=== PATIENT | male | born 1960 | race Hispanic/Latino ===

== ENCOUNTER 2024-11-19 07:43 | Inpatient (IN) | payer OTHER ==
[~2024-11-19] VITALS: Ht 162.6 cm; Wt 74.8 kg
[2024-11-19] VITALS (30 sets, daily range): BP systolic 95–139; BP diastolic 51–85; PULSE 79–96; RESP 15–22; TEMP 97.9–99.6; O2SAT 94–95
--- NOTE | 2024-11-19 07:52 | NUR ---
PT JUST NOW PLACED IN MY ED BED 11
[2024-11-19 08:18] LABS: BASOPHILS # (AUTO) 0.06 K/uL (0.00-0.20); BASOPHILS % (AUTO) 0.5 % (0.0-5.0); EOSINOPHILS % (AUTO) 2.3 % (0.0-8.0); HEMATOCRIT 45.7 % (42-54); IMMATURE GRANULOCYTE ABSOLUTE 0.04 K/uL (0-1); LYMPHOCYTES # (AUTO) 1.7 K/uL (1.0-4.8); LYMPHOCYTES % (AUTO) 13.4 % (21.0-51.0); MEAN CORPUSCULAR HEMOGLOBIN 28.7 pg (27.0-33.0); MEAN CORPUSCULAR HGB CONC 32.8 g/dL (32.0-36.0); MEAN CORPUSCULAR VOLUME 87.5 fL (79-99); MONOCYTES # (AUTO) 1.2 K/uL (0.1-1.0); NEUTROPHILS # (AUTO) 9.7 K/uL (1.8-7.7); NEUTROPHILS % (AUTO) 74.5 % (40.0-77.0); PLATELET COUNT (AUTO) 300 K/uL (130-400); RED BLOOD CELL COUNT(AUTO) 5.22 MIL/uL (4.50-6.20); RED CELL DISTRIBUTION WIDTH 12.8 % (11.0-15.5)
--- NOTE | 2024-11-19 08:29 | ERN ---
General Chief Complaint: Abscess Stated Complaint: RECTAL ABSCESS Time Seen by MD: 07:46 Source: patient, family History of Present Illness Initial Comments Patient is a 64-year-old male coming in to be evaluated for perirectal abscess. Per patient this has been ongoing for three days. He was seen by the stone sandblaster and per her instructions patient was to be admitted and seen by surgeon. Patient states that this pain began in his left testicle and it is radiating up his groin region. Patient also states he is a diabetic. 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 HEAD/FACE: No signs of trauma. EENT: No eye pain, no blurred vision, no tearing, no double vision, no ear pain, no ear discharge, no nose pain, no nasal congestion, no throat pain, no throat swelling, no mouth pain. RESPIRATORY: No cough, no orthopnea, no SOB, no stridor, no wheezing. CARDIOVASCULAR: No chest pain, no edema, no palpitations, no syncope. GASTROINTESTINAL/ABDOMINAL: No abdominal pain, no constipation, no diarrhea, no nausea, no vomiting. GENITOURINARY: No abnormal discharge, no dysuria, no frequent urination, no h ematuria. complaints of pain in the genitals. MUSCULOSKELETAL: No back pain, no gout, no joint pain, no joint swelling, no mu scle pain, no muscle stiffness, no neck pain. INTEGUMENTARY: No change in color, no change in hair/nails, no dryness, no lesion, no lumps, no rash. NEUROLOGICAL/PSYCH: No anxiety, not depressed, no emotional problem, no headache, no numbness, no pre-existing deficit, no history of seizures, no tremors, no weakness. HEMATOLOGIC/LYMPHATIC: Not anemic, no history of blood clots, no apparent bleeding, no bruising, glands not swollen. All Systems Negative, Except as Noted. Physical Exam Physical Exam Dictation VITAL SIGNS: Reviewed. GENERAL APPEARANCE: Alert, oriented x3, no acute distress, obese. HEAD AND FACE: Non-traumatic. EYES: PERRL, pink conjunctivas, eyelid no trauma, anterior chamber clear. EARS: Pinnas intact and no signs of trauma or erythema. Ear canals clear and no discharge. TMs no erythema. NOSE: No discharge, no bleeding. OROPHARYNX: Mouth normal, teeth no caries, tongue pink. Pharynx clear, no erythema. Tonsils no exudates, no abscesses noted. Mucous membrane moist. NECK: Supple, non-tender, no thyromegaly, no masses, no JVD, no bruits. BREAST: Deferred. CHEST: No tenderness, no crepitus, no paradoxical movement, no retractions. LUNGS: Clear, well-ventilated, symmetric, no rales, no wheezing, no rhonchi, no stridor, good breath sounds bilaterally. HEART: Regular rate, regular rhythm, no murmur, no gallops. VASCULAR: No peripheral edema. ABDOMEN: Soft, positive bowel sounds, nondistended, no guarding, nontender, no rebound, no masses no hepatomegaly, no splenomegaly, no Billings's sign, no hernias. RECTAL: Deferred. GENITAL: Chaperoned by nurse, left testicular swelling, left inguinal erythema. NEUROLOGICAL: Normal speech, gross motor function intact, gross sensory function intact. MUSCULOSKELETAL: Neck nontender, full range of motion, back nontender, full range of motion. EXTREMITIES: Nontender, full range of motion. SKIN: Color pink, dry, no turgor, no rash, no lacerations, no abrasions, no contusions. LYMPHATICS: Deferred. Results Laboratory and Microbiology Lab and Micro Result Laboratory Tests Test 11/19/24 08:12 11/19/24 08:19 White Blood Count 13.0 K/uL (4.8-10.8) H Red Blood Count 5.22 MIL/uL (4.50-6.20) Hemoglobin 15.0 g/dL (14.0-18.0) Hematocrit 45.7 % (42-54) Mean Corpuscular Volume 87.5 fL (79-99) Mean Corpuscular Hemoglobin 28.7 pg (27.0-33.0) Mean Corpuscular Hemoglobin Concent 32.8 g/dL (32.0-36.0) Red Cell Distribution Width 12.8 % (11.0-15.5) Platelet Count 300 K/uL (130-400) Mean Platelet Volume 11.0 fL (7.5-10.5) H Immature Granulocyte % (Auto) 0.3 % (0-1) Neutrophils (%) (Auto) 74.5 % (40.0-77.0) Lymphocytes (%) (Auto) 13.4 % (21.0-51.0) L Monocytes (%) (Auto) 9.0 % (3.0-13.0) Eosinophils (%) (Auto) 2.3 % (0.0-8.0) Basophils (%) (Auto) 0.5 % (0.0-5.0) Neutrophils # (Auto) 9.7 K/uL (1.8-7.7) H Lymphocytes # (Auto) 1.7 K/uL (1.0-4.8) Monocytes # (Auto) 1.2 K/uL (0.1-1.0) H Eosinophils # (Auto) 0.30 K/uL (0.00-0.70) Basophils # (Auto) 0.06 K/uL (0.00-0.20) Absolute Immature Granulocyte (auto 0.04 K/uL (0-1) Nucleated Red Blood Cells 0.0 % (0.0-0.19) Sodium Level 134 mmol/L (136-145) L Potassium Level 4.2 mmol/L (3.5-5.1) Chloride Level 97 mmol/L (101-111) L Carbon Dioxide Level 29 mmol/L (21-32) Blood Urea Nitrogen 15 mg/dL (7-18) Creatinine 0.7 mg/dL (0.5-1.3) Glomerular Filtration Rate Calc 103 mL/min (>90) Random Glucose 187 mg/dL (70-105) H Lactic Acid Level 2.2 mmol/L (0.8-2.5) Total Calcium 9.1 mg/dL (8.5-10.1) Total Creatine Kinase 61 U/L (21-232) Troponin I High Sensitivity 5 ng/L (4-75) Procalcitonin < 0.05 ng/mL (0.05-0.5) L Urine Color YELLOW (YELLOW) Urine Appearance CLEAR (CLEAR) Urine pH 5.0 (5.0-8.0) Urine Specific [place] 1.032 (1.001-1.031) Urine Protein NEGATIVE mg/dL (NEGATIVE) Urine Glucose (UA) >=1000 mg/dL (NEGATIVE) H Urine Ketones 40 mg/dL (NEGATIVE) H Urine Occult Blood NEGATIVE (NEGATIVE) Urine Nitrate NEGATIVE (NEGATIVE) Urine Bilirubin NEGATIVE mg/dL (NEGATIVE) Urine Urobilinogen 0.2 mg/dL (0.2-1.0) Urine Leukocyte Esterase NEGATIVE Cecy/uL Urine RBC 0-1 /HPF (0-1) Urine WBC 2-5 /HPF (0-1) H Urine Squamous Epithelial Cells Rare /HPF (0-2) Urine Bacteria None Seen /HPF (None Seen) EKG/XRAY/US/CT/MRI CT Scan Comment [facility] [place] [address] [place] [id number] IMAGING REPORT Signed PATIENT: ROSALINA NICHOLE MR#: [id number] : 1960 SEX: M AGE: 64 LOCATION: [facility] ORDER STATUS: [facility] REPORT#: [id number] SERVICE [id number] REASON: testicular abscess rule our forneirs ORDERING PHYSICIAN: PARAMJIT HOOK MD PROCEDURE: ABD PEL W - CT ABDOMEN/PELVIS W/CONTRAST CT ABDOMEN/PELVIS W/CONTRAST HISTORY: Testicular abscess COMPARISON: None TECHNIQUE: Multiple sequential axial images of the abdomen and pelvis were obtained from the dome of the diaphragm through symphysis pubis. Patient was given 75 cc of Omnipaque through intravenous route. Oral contrast was not given. FINDINGS: No pleural effusion is seen bilaterally. There is no evidence of parenchymal disease or pulmonary nodule of the visualized lower lungs. Degenerative changes of the thoracolumbar spine are present. The heart is not enlarged. Liver measures 16 cm. Postcholecystectomy changes are seen. The liver, spleen, adrenal glands and pancreas are unremarkable. There is no evidence of hydronephrosis bilaterally. No evidence of renal stone is seen. Fecal material is seen in the colon. There are normal size retroperitoneal and mesenteric lymph nodes. No ascites is seen. Mild atherosclerotic changes are seen. No CT evidence of acute appendicitis is seen. There is fluid-filled structure measuring 3.3 x 2.1 cm near the left perianal region suggestive of abscess. 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 There may be bilateral hydroceles with left more than right with scrotal wall thickening. Pelvic sidewalls are symmetric bilaterally. Bladder is well distended without wall thickening. IMPRESSION: 1. There is fluid-filled structure measuring 3.3 x 2.1 cm near the left perianal region suggestive of abscess. 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 There may be bilateral hydroceles with left more than right with scrotal wall thickening. CT was performed with one or more following dose reduction techniques: automated exposure control, adjustment of the mA and kv according to patient's size, or use of a iterative reconstruction technique. DICTATED BY: LAKEISHA BUCIO MD DATE: 11/19/24909 ELECTRONICALLY SIGNED BY: LAKEISHA BUCIO MD DATE: 11/19/24914 [facility] MDM: Differential diagnosis: Morales gangrene, sepsis, diabetes mellitus, Rationale: Tests considered and ordered secondary to shared decision making include: labs, ECG and radiology Previous outside records reviewed: Old ER visits. Risk of complication and/or morbidity or mortality of patient management: None Medications-Per medication reconciliation Need for hospitalization: Patient does meet criteria for hospitalization. Need for emergency major/minor surgery: No There are no social concerns with this patient. Prescription drug management Prescriptions will include symptomatic care Patient's prior external medical records from other ER visits were reviewed by me as indicated. Prior testing and results from previous visits were reviewed. Prior tests were taken into account with medical decision making and resource utilization, independent historian/historians were used to obtain complete medical history. I independently interpreted the test that were performed, results were reviewed by me and considered findings on radiology if ordered. Medical management and examination interpretation discussions were had by me with other qualified healthcare professionals as indicated for the patient's care. Patient is a 64-year-old male coming in to be evaluated for left testicular swelling. 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 Surgeon Dr. Faith will be consulted patient will be admitted under the care of hospitalist group. ED Course Orders Procedure Category Date Status Time Cbc With Differential LAB 11/19/24 Complete 07:48 Blood Cult ROLANDO 11/19/24 In Process 07:48 Urinalysis Profile LAB 11/19/24 Complete 07:48 Culture Urine ROLANDO 11/19/24 In Process 07:48 Creatine Kinase, Total LAB 11/19/24 Complete 07:48 Troponin I High LAB 11/19/24 Complete Sensitivity 07:48 Procalcitonin LAB 11/19/24 Complete 07:48 Lactic Acid LAB 11/19/24 Complete 07:48 Basic Metabolic Panel LAB 11/19/24 Complete 07:48 Vancomycin Protocol PHA 11/19/24 Pending (Vancomycin Protocol 09:00 Vancomycin 1g/250ml PHA 11/19/24 Pending Kit (Vancomycin 1g/2 09:00 Zosyn 3.375gm+Ns 50ml PHA 11/19/24 Complete (Zosyn 3.375gm+Ns 09:00 Ct Abdomen/Pelvis CT 11/19/24 Resulted W/Contrast 08:39 Iohexol (Omnipaque) PHA 11/19/24 Complete 08:45 Current Medications Medications (Trade) Dose Ordered Sig/Shanda Route PRN Reason Start Time Stop Time Status Last Admin Dose Admin Iohexol (Omnipaque) 75 ml STK-MED ONCE IV 11/19/24 08:45 11/19/24 08:45 DC Piperacillin Sod/ Tazobactam Sod (Zosyn 3.375gm+NS 50ml) 3.375 gm ONCE ONCE IV 11/19/24 09:00 11/19/24 09:26 DC Vancomycin HCl (Vancomycin Protocol) 1 each AD IV 11/19/24 09:00 12/03/24 08:59 UNV Vancomycin HCl (Vancomycin 1g/ 250ml Kit) 1 gm ONCE ONCE IV 11/19/24 09:00 11/19/24 09:01 UNV Vital Signs Date Time Temp Pulse Resp B/P (MAP) Pulse Ox O2 Delivery O2 Flow Rate FiO2 11/19/24 07:44 98.1 97 18 140/95 98 Room Air 0 Critical Care Note Comments Critical Care Procedure Note Authorized and Performed by: me Total critical care time: Approximately 36 minutes Due to a high probability of clinically significant, life threatening deterioration, the patient required my highest level of preparedness to intervene emergently and I personally spent this critical care time directly and personally managing the patient. This critical care time included obtaining a history; examining the patient; pulse oximetry; ordering and review of studies; arranging urgent treatment with development of a management plan; evaluation of patient's response to treatment; frequent reassessment; and, discussions with other providers. This critical care time was performed to assess and manage the high probability of imminent, life-threatening deterioration that could result in multi-organ failure. It was exclusive of separately billable procedures and treating other patients and teaching time. Please see MDM section and the rest of the note for further information on patient assessment and treatment. 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
[2024-11-19 08:35] LABS: CREATININE 0.7 mg/dL (0.5-1.3); POTASSIUM 4.2 mmol/L (3.5-5.1)
[2024-11-19] MEDS ORDERED: IOHEXOL-350 75 ML VIAL IV ONE (08:45)
--- NOTE | 2024-11-19 08:45 | NUR ---
PT TAKEN TO CT SCAN VIA STRETCHER BY NIYAH SANDHU
[2024-11-19 08:51] LABS: APPEARANCE,URINE CLEAR (CLEAR); BILIRUBIN,URINE NEGATIVE (NEGATIVE); COLOR,URINE YELLOW (YELLOW); GLUCOSE, URINE (UA) >=1000 mg/dL (NEGATIVE); KETONES,URINE 40 mg/dL (NEGATIVE); LEUKOCYTE ESTERASE ,URINE NEGATIVE Leu/uL (NEGATIVE); NITRATE,URINE NEGATIVE (NEGATIVE); OCCULT BLOOD,URINE NEGATIVE (NEGATIVE); PROTEIN,URINE NEGATIVE (NEGATIVE); UROBILINOGEN,URINE 0.2 mg/dL (0.2-1.0)
[2024-11-19 08:52] LABS: ADD UA MICROSCOPIC YES
[2024-11-19 08:56] LABS: BACTERIA,URINE None Seen /HPF (None Seen); RBC,URINE 0-1 /HPF (0-1); SQUAMOUS EPITHELIAL CELL,UR Rare /HPF (0-2)
[2024-11-19] MEDS ORDERED: VANCOMYCIN PROTOCOL PER PHARMACY IV SCH (09:00)
[2024-11-19] MEDS ORDERED: VANCOMYCIN KIT 1 GM/250 ML IV.KIT IV ONE (09:00)
--- NOTE | 2024-11-19 09:05 | NUR ---
PT JUST RETURNED FROM CT SCAN
--- NOTE | 2024-11-19 09:15 | HMCIMG ---
CT ABDOMEN/PELVIS W/CONTRAST HISTORY: Testicular abscess COMPARISON: None TECHNIQUE: Multiple sequential axial images of the abdomen and pelvis were obtained from the dome of the diaphragm through symphysis pubis. Patient was given 75 cc of Omnipaque through intravenous route. Oral contrast was not given. FINDINGS: No pleural effusion is seen bilaterally. There is no evidence of parenchymal disease or pulmonary nodule of the visualized lower lungs. Degenerative changes of the thoracolumbar spine are present. The heart is not enlarged. Liver measures 16 cm. Postcholecystectomy changes are seen. The liver, spleen, adrenal glands and pancreas are unremarkable. There is no evidence of hydronephrosis bilaterally. No evidence of renal stone is seen. Fecal material is seen in the colon. There are normal size retroperitoneal and mesenteric lymph nodes. No ascites is seen. Mild atherosclerotic changes are seen. No CT evidence of acute appendicitis is seen. There is fluid-filled structure measuring 3.3 x 2.1 cm near the left perianal region suggestive of abscess. 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 There may be bilateral hydroceles with left more than right with scrotal wall thickening. Pelvic sidewalls are symmetric bilaterally. Bladder is well distended without wall thickening. IMPRESSION: 1. There is fluid-filled structure measuring 3.3 x 2.1 cm near the left perianal region suggestive of abscess. 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 There may be bilateral hydroceles with left more than right with scrotal wall thickening. CT was performed with one or more following dose reduction techniques: automated exposure control, adjustment of the mA and kv according to patient's size, or use of a iterative reconstruction technique.
[2024-11-19] MEDS: ZOSYN 3.375GM +NS 50ML IV ONE (09:32)
--- NOTE | 2024-11-19 09:43 | NUR ---
DR BULLARD CURRENTLY AT BEDSIDE
[2024-11-19] MEDS ORDERED: acetaMINOPHEN 325 MG TAB PO PRN (10:00)
[2024-11-19] MEDS ORDERED: PHARMACY COMMUNICATION MISC SCH (10:00)
[2024-11-19] MEDS ORDERED: LACTATED RINGERS 1000ML 1,000 ML IV SCH (10:00)
--- NOTE | 2024-11-19 10:10 | HP ---
[facility] HISTORY AND PHYSICAL Date of Service: Nov 19, 2024 Time of Service: 10:10 HISTORY OF PRESENT ILLNESS: Date of service: 11/19/2024, patient was seen in ER room 11 64-year-old male with underlying history of hypertension, hyperlipidemia, type 2 diabetes mellitus (maintained on outpatient insulin as well as metformin, [facility]), who presented to the ER for further evaluation of left perianal pain, tenderness and induration ongoing for the past three days. Patient was seen by a physician previously and was asked to come to the ER for further evaluation. Patient reports having poor oral intake and significant pain which he rates as 7/10 in intensity. Patient reports having previous history of folliculitis involving the scrotum previously. Denies any previous history of abscess requiring incision and drainage. He was previously hospitalized in [facility] couple of years ago after he fell and sustained a right femur fracture requiring surgical fixation. Patient denies any active chest pain, shortness of breath. Last bowel movement was yesterday. On presentation to the hospital, patient was noted to be afebrile with T-max of 98.1 F, heart rate of 97, blood pressure 140/95. Labs [place] [address], hemoglobin of 15, platelet count of 714690. BMP remarkable for sodium of 134, potassium 4.2, creatinine 0.7, blood glucose of 187, lactic acid of 2.2, CRP of 78.20. 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 Patient was also noted to have bilateral hydroceles involving with right scrotal wall thickening. REVIEW OF SYSTEMS CONSTITUTIONAL: Denies fevers, chills, or night sweats. No unintentional weight loss reported. NEUROLOGICAL: Denies headache, amaurosis fugax, motor weakness, sensory deficit, vertigo/spinning sensation, gait abnormalities, or tremors. ENT: No hearing loss, otalgia, otorrhea, rhinitis, rhinorrhea, hoarseness, or sore throat. CARDIOVASCULAR: Denies any exertional angina, dyspnea on exertion, orthopnea, paroxysmal nocturnal dyspnea, palpitations, life-threatening arrhythmias, claudication. PULMONARY: Denies any shortness of breath, cough, phlegm/sputum, hemoptysis, pleuritic chest pain. SLEEP: Denies morning headaches, daytime somnolence or napping. Denies difficulty falling asleep, staying asleep, waking from sleep. Denies knowledge of snoring. GASTROINTESTINAL: Redness, swelling and induration involving the left perianal region GENITOURINARY: Denies frequency, urgency, nocturia, hematuria or incontinence (Storage/Irritative symptoms.) Low urinary stream, straining to void, urinary intermittency or hesitancy, splitting of the voiding stream, terminal dribbling. ENDOCRINOLOGIC: Denies polyuria, polydipsia, polyphagia or heat/cold intolerances. HEMATOLOGIC: Denies thrombophilia/previous clots, or coagulopathy/bleeding disorders. ONCOLOGIC: Denies personal history of malignancy. DERMATOLOGIC: Denies rashes or pruritus. PSYCHIATRIC: Denies any suicidal or homicidal ideation. Denies hallucinations. PAST MEDICAL HISTORY: Hypertension, hyperlipidemia, type 2 diabetes mellitus maintained on outpatient insulin, metformin, Farxiga PAST SURGICAL HISTORY: Patient has a history of operative fixation of the right femur after he sustained a fall from ladder requiring hospitalization in [facility] about 2-3 years ago PAST SOCIAL HISTORY: Patient denies active smoking or alcohol consumption FAMILY HISTORY: Denies pertinent family history Allergies: No known drug allergies Medications: Patient is on outpatient lisinopril 5 mg daily, Metformin 850 mg daily, atorvastatin 10 mg daily, Farxiga 5 mg daily, Humulin/Novolin NPH 16 units twice daily Coded Allergies: No Known Drug Allergies (Unverified Allergy, Unknown, 11/19/24) PHYSICAL EXAM GENERAL APPEARANCE: The patient is awake, alert, and oriented, in no acute cardiopulmonary distress. NEUROLOGICAL: Cranial nerves II-XII grossly intact. Motor is 5/5 in bilateral upper and lower extremities proximal to distal. No sensory deficits. HEENT: Face is symmetric. Pupils are equal and reactive. Extraocular movements are intact. NECK: Supple. No JVD. No thyromegaly. No submental, submandibular, pre-/postau ricular, occipital or supraclavicular lymphadenopathy. CHEST: Normal chest expansion. No Telemetry. LUNGS: Absence of any rales, rhonchi or any wheezing. CARDIOVASCULAR: Regular. S1 and S2 normal. No appreciable rubs, murmurs or gallops. ABDOMEN/ : Erythema, induration, swelling noted of the left perianal region with surrounding erythema noted EXTREMITIES: Non-edematous and not cyanotic. No clubbing. Good capillary refill. Vital Sign (Last 24 Hours) 11/19/24 07:44 Temp 98.1 Pulse 97 Resp 18 B/P (MAP) 140/95 Pulse Ox 98 O2 Delivery Room Air O2 Flow Rate 0 LABS: Laboratory: Test 11/19/24 08:19 11/19/24 08:12 Range/Units Urine Color YELLOW YELLOW Urine Appearance CLEAR CLEAR Urine pH 5.0 5.0-8.0 Urine Specific [place] 1.032 H 1.001-1.031 Urine Protein NEGATIVE NEGATIVE mg/dL Urine Glucose (UA) >=1000 H NEGATIVE mg/dL Urine Ketones 40 H NEGATIVE mg/dL Urine Occult Blood NEGATIVE NEGATIVE Urine Nitrate NEGATIVE NEGATIVE Urine Bilirubin NEGATIVE NEGATIVE mg/dL Urine Urobilinogen 0.2 0.2-1.0 mg/dL Urine Leukocyte Esterase NEGATIVE NEGATIVE Cecy/uL Urine RBC 0-1 0-1 /HPF Urine WBC 2-5 H 0-1 /HPF Urine Squamous Epithelial Cells Rare 0-2 /HPF Urine Bacteria None Seen None Seen /HPF White Blood Count 13.0 H 4.8-10.8 K/uL Red Blood Count 5.22 4.50-6.20 MIL/uL Hemoglobin 15.0 14.0-18.0 g/dL Hematocrit 45.7 42-54 % Mean Corpuscular Volume 87.5 79-99 fL Mean Corpuscular Hemoglobin 28.7 27.0-33.0 pg Mean Corpuscular Hemoglobin Concent 32.8 32.0-36.0 g/dL Red Cell Distribution Width 12.8 11.0-15.5 % Platelet Count 300 130-400 K/uL Mean Platelet Volume 11.0 H 7.5-10.5 fL Immature Granulocyte % (Auto) 0.3 0-1 % Neutrophils (%) (Auto) 74.5 40.0-77.0 % Lymphocytes (%) (Auto) 13.4 L 21.0-51.0 % Monocytes (%) (Auto) 9.0 3.0-13.0 % Eosinophils (%) (Auto) 2.3 0.0-8.0 % Basophils (%) (Auto) 0.5 0.0-5.0 % Neutrophils # (Auto) 9.7 H 1.8-7.7 K/uL Lymphocytes # (Auto) 1.7 1.0-4.8 K/uL Monocytes # (Auto) 1.2 H 0.1-1.0 K/uL Eosinophils # (Auto) 0.30 0.00-0.70 K/uL Basophils # (Auto) 0.06 0.00-0.20 K/uL Absolute Immature Granulocyte (auto 0.04 0-1 K/uL Nucleated Red Blood Cells 0.0 0.0-0.19 % Sodium Level 134 L 136-145 mmol/L Potassium Level 4.2 3.5-5.1 mmol/L Chloride Level 97 L 101-111 mmol/L Carbon Dioxide Level 29 21-32 mmol/L Blood Urea Nitrogen 15 7-18 mg/dL Creatinine 0.7 0.5-1.3 mg/dL Glomerular Filtration Rate Calc 103 >90 mL/min Random Glucose 187 H 70-105 mg/dL Lactic Acid Level 2.2 0.8-2.5 mmol/L Total Calcium 9.1 8.5-10.1 mg/dL Total Creatine Kinase 61 21-232 U/L Troponin I High Sensitivity 5 4-75 ng/L Procalcitonin < 0.05 L 0.05-0.5 ng/mL Current Medications Medications (Trade) Dose Ordered Sig/Shanda Route PRN Reason Start Time Stop Time Status Last Admin Dose Admin Acetaminophen (TYLenol 325MG TAB) 650 mg Q6H PRN PO MILD PAIN (1-3) 11/19/24 10:00 12/19/24 09:59 UNV Clindamycin HCl/ Dextrose 50 ml @ 100 mls/hr Q8H IV 11/19/24 10:30 11/29/24 10:29 UNV Famotidine (Pepcid 20mg Tab) 20 mg Q12H PO 11/19/24 10:00 12/19/24 09:59 UNV Insulin Human Regular (humuLIN R 100 UNIT/ML 3ML) INSULIN SLIDING SCAL... ACHS SQ 11/19/24 11:30 12/19/24 11:29 Ketorolac Tromethamine (toRADol) 15 mg Q12H PRN IV MODERATE PAIN (4-6) 11/19/24 10:00 11/20/24 16:00 UNV Lactated Ringer's 1,000 ml @ 100 mls/hr Q10H IV 11/19/24 10:00 12/19/24 09:59 Morphine Sulfate (morPHINE 2MG SYG) 2 mg Q4H PRN IVP SEVERE PAIN (7-10) 11/19/24 10:00 11/26/24 09:59 UNV Ondansetron HCl (zoFRAN 4MG INJ) 4 mg Q6H PRN IVP NAUSEA/VOMITING 11/19/24 10:00 12/19/24 09:59 UNV Pharmacy Profile Note (Pharmacy Communication) 1 each ONCE MISC 11/19/24 10:00 11/26/24 09:59 UNV Vancomycin HCl 250 ml @ 125 mls/hr Q12H IV 11/20/24 02:00 11/30/24 01:59 Vancomycin HCl (Vancomycin Protocol) 1 each AD IV 11/19/24 09:00 12/03/24 08:59 DIAGNOSTICS / RADIOLOGY: SERVICE 0839 REASON: testicular abscess rule our forneirs ORDERING PHYSICIAN: PARAMJIT HOOK MD PROCEDURE: ABD PEL W - CT ABDOMEN/PELVIS W/CONTRAST CT ABDOMEN/PELVIS W/CONTRAST HISTORY: Testicular abscess COMPARISON: None TECHNIQUE: Multiple sequential axial images of the abdomen and pelvis were obtained from the dome of the diaphragm through symphysis pubis. Patient was given 75 cc of Omnipaque through intravenous route. Oral contrast was not given. FINDINGS: No pleural effusion is seen bilaterally. There is no evidence of parenchymal disease or pulmonary nodule of the visualized lower lungs. Degenerative changes of the thoracolumbar spine are present. The heart is not enlarged. Liver measures 16 cm. Postcholecystectomy changes are seen. The liver, spleen, adrenal glands and pancreas are unremarkable. There is no evidence of hydronephrosis bilaterally. No evidence of renal stone is seen. Fecal material is seen in the colon. There are normal size retroperitoneal and mesenteric lymph nodes. No ascites is seen. Mild atherosclerotic changes are seen. No CT evidence of acute appendicitis is seen. There is fluid-filled structure measuring 3.3 x 2.1 cm near the left perianal region suggestive of abscess. 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 There may be bilateral hydroceles with left more than right with scrotal wall thickening. Pelvic sidewalls are symmetric bilaterally. Bladder is well distended without wall thickening. IMPRESSION: 1. There is fluid-filled structure measuring 3.3 x 2.1 cm near the left perianal region suggestive of abscess. 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 There may be bilateral hydroceles with left more than right with scrotal wall thickening. CT was performed with one or more following dose reduction techniques: automated exposure control, adjustment of the mA and kv according to patient's size, or use of a iterative reconstruction technique. 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, POA Sepsis Secondary to underlying left perianal abscess with concerns for Morales gangrene, POA Leukocytosis, POA Lactic acidosis, POA Rule out euglycemic DKA, POA History of Farxiga use as outpatient, POA Suspected hidradenitis suppurativa involving in the scrotal and groin region, POA Hypertension, POA Hyperlipidemia, POA Underlying history of type 2 diabetes mellitus, POA PLAN: Patient will be admitted to cardiac telemetry floor May need to upgrade to ICU if blood ketone is high in the DKA range especially in the setting of Farxiga use which can cause euglycemic DKA Patient will receive sepsis bolus of fluids We will start broad-spectrum antibiotics with IV vancomycin/meropenem/clindamycin Consultation with Dr. Faith with General surgery has been requested who will follow up with this patient later this afternoon, will need to be taken to OR for further I and D and debridement as soon as possible Consultation with Dr. Shultz with Urology will be requested Farxiga should be stopped indefinitely due to increased risk of having necrotizing soft tissue infections and urogenital infections I spoke with Dr. Vigil with endocrinology, appreciate recommendations Consultation with Infectious Disease will be requested If euglycemic DKA is confirmed, patient will be started on DKA protocol with IV insulin gtt and fluids, we will have ICU team follow this patient Maintain K greater than four and magnesium greater than two Monitor closely for signs of hypotension, maintain MAP greater than 65 All home medications will be reconciled and updated Patient will be kept NPO Date of service: 11/19/2024 Condition: Critical, critical care minutes: 45 minutes Plan of care was discussed with patient and family at bedside, anticipate hospitalization greater than 72 hours Carroll Glasgow MD Advanced Care Planning: Which of the following were discussed: Hospice care: Yes __ No _x_ Therapeutic options: Yes _x_ No __ Advance directives: Yes _x_ No __ Other discussions: Discussed with who?: Patient Voluntary nature of this service was explained to the patient? Yes _x_ No __ Amount of time spent: 20 minutes CARROLL GLASGOW MD Nov 19, 2024 10:10
[2024-11-19 10:18] LABS: INR 1.02 (0.85-1.15); PROTHROMBIN TIME 10.8 SEC (9.6-11.6)
[2024-11-19 10:19] LABS: PARTIAL THROMBOPLASTIN TIME 27.6 SEC (26.3-35.5)
[2024-11-19 10:29] LABS: ALBUMIN 3.5 g/dL (3.5-5.0); BILIRUBIN,DIRECT 0.2 mg/dL (0.0-0.3); TOTAL PROTEIN, SERUM 8.6 g/dL (6.0-8.3)
[2024-11-19] MEDS ORDERED: hydrALAZine 20MG/ML VIAL IV PRN (10:30)
[2024-11-19] MEDS: CLINDAMYCIN IVPB 600MG/50ML 50 ML IV SCH (10:46)
[2024-11-19] MEDS: FAMOTIDINE 20MG TAB PO SCH (10:46)
[2024-11-19] MEDS ORDERED: PoTASSium chloRIDE 10MEQ/100ML 100 ML IV PRN (11:00)
[2024-11-19] MEDS ORDERED: MAGNESIUM 2GM PREMIX 50ML 50 ML IV SCH (11:00)
[2024-11-19] MEDS: [UNRECOGNIZED DRUG - OTHER] IV ONE (11:03)
--- NOTE | 2024-11-19 11:03 | EKG ---
[facility] Test Date: 2024-11-19 Test Time: 09:59:54 Pat Name: ROSALINA NICHOLE Department: EDHIP Patient ID: [id number] Room: ED 11 Gender: M Wood Lather: [id number] : 1960 Requested By: KAROL BULLARD Order Number: [id number] Reading MD: Esteban Borden Measurements Intervals [place] Rate: 84 P: 37 DC: 131 QRS: -10 QRSD: 94 T: -1 QT: 354 QTc: 418 Interpretive Statements Sinus rhythm No previous ECG available for comparison Electronically Signed On 11-19-2024 13:40:58 CDT by Esteban Borden Please click the below link to view image of tracing.
[2024-11-19] MEDS ORDERED: INSULIN humuLIN R 100 UNIT/ML 3ML SQ SCH (11:30)
[2024-11-19 12:20] LABS: CREATININE 0.7 mg/dL (0.5-1.3); POTASSIUM 4.5 mmol/L (3.5-5.1)
--- NOTE | 2024-11-19 12:32 | NUR ---
PHARMACY TO SEND INSULIN DRIP
[2024-11-19] MEDS: ondanSETRON 4MG INJ IVP PRN (12:42)
[2024-11-19] MEDS: morPHINE 2 MG SYG IVP PRN (12:42)
--- NOTE | 2024-11-19 13:47 | NUR ---
PT OOB TO BR W/A STEADY AND EVEN GAIT.
--- NOTE | 2024-11-19 14:06 | NUR ---
UROLOGY CONSULT: DR FULLER OFFICE CALLED IN ORDER PER DR ROJO
--- NOTE | 2024-11-19 14:45 | NUR ---
SURGICAL CONSULT: DR BUCIO SENT BRIAN RN FROM OR TO TAKE PT TO PRE OP AND PREPARE HIM FOR SURGERY. FAMILY/PT WERE INFORMED. THEY WOULD OBTAIN THE CONSENT FROM THERE. INSULIN DRIP CHARTING SENT W/NURSE. INSULIN DRIP HAD JUST BEEN STARTED ALONG W/VANCO AND F51/2NS AT 150
[2024-11-19] MEDS: INSULIN REGULAR, HUMAN 3ML 100 UNIT in 0.9%NACL 100ML 100 ML IV SCH (14:50)
[2024-11-19] MEDS: DEXTROSE 5 %-0.45 % NACL 1,000 ML IV SCH (14:50)
[2024-11-19] MEDS: VANCOMYCIN 1.5 GM/250 ML BAG 250 ML IV ONE (14:51)
--- NOTE | 2024-11-19 15:13 | NUR ---
MEDICATION RECONCILIATION: SPOUSE MADE AWARE SHE WILL NEED TO BRING IN THE PTS PHYSICAL MEDICATIONS TO COMPLETE THE RECONCILIATION
[2024-11-19] MEDS ORDERED: proPOFol 10 MG/ML 20ML VIAL IV ONE (15:32)
[2024-11-19] MEDS ORDERED: MIDAZOLAM HCL 1 MG/ML 2ML VIAL ONE (15:32)
[2024-11-19] MEDS ORDERED: FENTanyl CITRate PF 50 MCG/1 ML 2ML VIAL ONE (15:33)
[2024-11-19] MEDS ORDERED: LIDOCAINE HCL 1% 20 ML VIAL ONE (15:37)
[2024-11-19] MEDS ORDERED: ceFAZolin SODIUM 1 GM VIAL ONE (15:37)
[2024-11-19] MEDS ORDERED: BUPIvacaine/PF 0.25% 30ML VIAL IJ ONE (15:37)
--- NOTE | 2024-11-19 15:41 | CONS ---
GENERAL SURGERY CONSULTATION NOTE DATE OF CONSULTATION: Nov 19, 2024 TIME OF CONSULTATION: 15:40 CONSULTING SERVICE: Marcell Morelos MD REQUESTING PHYSICAIN: [ ] REASON FOR CONSULTATION: [ ] Perirectal abscess HISTORY OF PRESENT ILLNESS: [ ] 64-year-old male who presented with perianal pain This started about four days ago associated with severe pain No nausea or vomiting No diarrhea or constipation PAST MEDICAL HISTORY: [ ]Past Medical History Past Medical History: Diabetes-Type II Past Surgical History: Other Surgical History Other: METAL MAIRA IN RIGHT FEMUR PAST SURGICAL HISTORY: [ ] ORIF right femur FAMILY HISTORY: [ ] No family history of hypertension or diabetes SOCIAL HISTORY: Smokes a pack per day of cigarettes No alcohol Current Medications Medications (Trade) Dose Ordered Sig/Shanda Route Start Time Stop Time Status Last Admin Dose Admin Clindamycin HCl/ Dextrose 50 ml @ 100 mls/hr Q8H IV 11/19/24 10:30 11/29/24 10:29 11/19/24 10:46 100 MLS/HR Dextrose/Sodium Chloride 1,000 ml @ 0 mls/hr AD IV 11/19/24 11:00 12/19/24 10:59 11/19/24 14:50 150 MLS/HR Famotidine (Pepcid 20mg Vial) 20 mg BID IV 11/19/24 21:00 12/19/24 20:59 Famotidine (Pepcid 20mg Tab) 20 mg Q12H PO 11/19/24 10:00 11/19/24 11:16 DC 11/19/24 10:46 20 MG Insulin Human Regular (humuLIN R 100 UNIT/ML 3ML) INSULIN SLIDING SCAL... ACHS SQ 11/19/24 11:30 11/19/24 10:52 DC Insulin Human Regular 100 unit/ Sodium Chloride 101 ml @ 0 mls/hr PROTOCOL IV 11/19/24 11:00 12/19/24 10:59 11/19/24 14:50 0.5 MLS/HR Lactated Ringer's 1,000 ml @ 100 mls/hr Q10H IV 11/19/24 10:00 11/19/24 10:50 DC Magnesium Sulfate 50 ml @ 0 mls/hr PROTOCOL IV 11/19/24 11:00 12/19/24 10:59 Meropenem (Merrem 1gm) 1 gm Q8H IVPB 11/19/24 17:00 11/29/24 16:59 Pharmacy Profile Note (Pharmacy Communication) 1 each ONCE MISC 11/19/24 10:00 11/19/24 10:18 DC Potassium Chloride/Dextrose/ Sod Cl 1,000 ml @ 0 mls/hr AD IV 11/19/24 11:00 12/19/24 10:59 Vancomycin HCl 250 ml @ 125 mls/hr Q12H IV 11/20/24 02:00 11/30/24 01:59 Vancomycin HCl (Vancomycin Protocol) 1 each AD IV 11/19/24 09:00 12/03/24 08:59 Allergies: Coded Allergies: No Known Drug Allergies (Unverified Allergy, Unknown, 11/19/24) REVIEW OF SYSTEMS: VOCATIONAL DIRECTOR: [Denies headaches or blurring of vision.] RESP: [No cough, chest pain or SOB.] CVS: [No palpitaions.] GI: [No abdominal pain with nausea and vomiting, no diarrhea or constipation.] Severe perianal pain EVARISTO: [No dysuria or hematuria.] Musculoskeletal: [No swelling or joint pain.] BACK: [No pain or swelling.] All other systems are reviewed and essentially negative pertinent positives in HPI. PHYSICAL EXAMINATION: GENERAL: [Patient is lying comfortably in bed, not in any obvious distress.] HEAD: [Normal with no signs of head trauma.] EYES: [Not pale not jaundiced afebrile to touch.] ENT: [ Normal.] NECK: [Supple,no tenderness,no lymphadenopathy,no masses,no thyromegaly ,no bruits, no JVD.] LUNGS: [Clear breath sounds bilaterally. No wheezes, rales, or rhonchi.] HEART: [Regular rate and rhythm. Normal S1 and S2, without murmurs, rub or gallop.] ABD: [Benign AL had indurated tender area perianal region erythematous Scrotum with skin lesions like hidradenitis : [Normal, no suprapubic tenderness.] LYMPH: [No lymphadenopathy noted.] EXT: [ Warm soft, non tender.] SKIN: [ No rashes or lesions.] NEURO: [ Awake Alert and oriented x3.] Vital Signs (last 8hr) Date Time Temp Pulse Resp B/P (MAP) Pulse Ox O2 Delivery O2 Flow Rate FiO2 11/19/24 14:45 98.8 90 17 117/43 99 Room Air* 0 21 11/19/24 10:50 98.6 84 16 117/72 99 Room Air* 0 21 11/19/24 07:44 98.1 97 18 140/95 98 Room Air 0 LABORATORY: [ ] Hematology Labs: Test 11/19/24 08:12 Range/Units White Blood Count 13.0 H 4.8-10.8 K/uL Red Blood Count 5.22 4.50-6.20 MIL/uL Hemoglobin 15.0 14.0-18.0 g/dL Hematocrit 45.7 42-54 % Mean Corpuscular Volume 87.5 79-99 fL Mean Corpuscular Hemoglobin 28.7 27.0-33.0 pg Mean Corpuscular Hemoglobin Concent 32.8 32.0-36.0 g/dL Red Cell Distribution Width 12.8 11.0-15.5 % Platelet Count 300 130-400 K/uL Mean Platelet Volume 11.0 H 7.5-10.5 fL Immature Granulocyte % (Auto) 0.3 0-1 % Neutrophils (%) (Auto) 74.5 40.0-77.0 % Lymphocytes (%) (Auto) 13.4 L 21.0-51.0 % Monocytes (%) (Auto) 9.0 3.0-13.0 % Eosinophils (%) (Auto) 2.3 0.0-8.0 % Basophils (%) (Auto) 0.5 0.0-5.0 % Neutrophils # (Auto) 9.7 H 1.8-7.7 K/uL Lymphocytes # (Auto) 1.7 1.0-4.8 K/uL Monocytes # (Auto) 1.2 H 0.1-1.0 K/uL Eosinophils # (Auto) 0.30 0.00-0.70 K/uL Basophils # (Auto) 0.06 0.00-0.20 K/uL Absolute Immature Granulocyte (auto 0.04 0-1 K/uL Nucleated Red Blood Cells 0.0 0.0-0.19 % Erythrocyte Sedimentation Rate 50 H 0-20 MM/HR Chemistry Labs: Test 11/19/24 14:59 11/19/24 12:01 11/19/24 10:36 11/19/24 08:12 Range/Units Whole Blood Glucose 97 70-110 MG/DL Sodium Level 134 L 136-145 mmol/L Potassium Level 4.5 3.5-5.1 mmol/L Chloride Level 99 L 101-111 mmol/L Carbon Dioxide Level 29 21-32 mmol/L Blood Urea Nitrogen 13 7-18 mg/dL Creatinine 0.7 0.5-1.3 mg/dL Glomerular Filtration Rate Calc 103 >90 mL/min Random Glucose 122 H 70-105 mg/dL Lactic Acid Level 1.2 0.8-2.5 mmol/L Total Calcium 8.6 8.5-10.1 mg/dL Whole Blood Ketones Quantitative 2.1 H 0.0-0.6 mmol/L Magnesium Level 2.00 1.80-2.40 mg/dL Total Bilirubin 1.0 0.2-1.0 mg/dL Direct Bilirubin 0.2 0.0-0.3 mg/dL Aspartate Amino Transf (AST/SGOT) 17 10-37 U/L Alanine Aminotransferase (ALT/SGPT) 20 12-78 U/L Alkaline Phosphatase 112 50-136 U/L Lactate Dehydrogenase 238 H 81-234 U/L Total Creatine Kinase 61 21-232 U/L Troponin I High Sensitivity 5 4-75 ng/L C-Reactive Protein, Quantitative 78.20 H 0.5-3.0 mg/L Total Protein 8.6 H 6.0-8.3 g/dL Albumin 3.5 3.5-5.0 g/dL Procalcitonin < 0.05 L 0.05-0.5 ng/mL Coagulation Labs: Test 11/19/24 08:12 Range/Units Prothrombin Time 10.8 9.6-11.6 SEC Prothromb Time International Ratio 1.02 0.85-1.15 Activated Partial Thromboplast Time 27.6 26.3-35.5 SEC DIAGNOSTICS / RADIOLOGY: [Copy/Paste Echos/Imaging Report here] ASSESSMENT: [] Perianal cellulitis with abscess PLAN: [] NPO/IVF/IV ANTIOBIOTICS Schedule for OR We talked about various treatment options including but not limited to surgery. We talked about risks and benefits of surgery, patient verbalized understanding has agreed to proceed [ ]. We will schedule [incision and drainage perianal abscess ]. MARCELL MORELOS MD Nov 19, 2024 15:40
[2024-11-19] MEDS ORDERED: SUCCINYLCHOLINE CHLORIDE 20 MG/ML 10 ML VIAL ONE (15:42)
[2024-11-19] MEDS ORDERED: rocuRONium bROMide 10MG/1ML 5ML VL ONE (15:42)
[2024-11-19] MEDS ORDERED: ketaMINE 50MG/ML SYRINGE 50 MG/ML DISP.SYRIN ONE (15:49)
[2024-11-19] MEDS: LIDOCAINE HCL 1% 20 ML VIAL INJ ONE (15:56)
[2024-11-19] MEDS: D5W-1/2 NS/20MEQ KCL 1,000 ML IV SCH (18:22)
[2024-11-19] MEDS ORDERED: LISI5TAB21 PO (18:25)
[2024-11-19] MEDS ORDERED: METF-445 PO (18:25)
[2024-11-19] MEDS ORDERED: DAPA5TAB PO (18:25)
[2024-11-19] MEDS ORDERED: ATOR10 PO (18:25)
[2024-11-19 19:33] LABS: CREATININE 0.6 mg/dL (0.5-1.3); POTASSIUM 3.8 mmol/L (3.5-5.1)
[2024-11-19] MEDS: MEROPENEM 1GM 1 GM VIAL IVPB SCH (19:49)
--- NOTE | 2024-11-19 20:23 | OP ---
DATE OF PROCEDURE: 11/19/2024 PREOPERATIVE DIAGNOSIS: Perirectal cellulitis and abscess. POSTOPERATIVE DIAGNOSIS: Perirectal cellulitis and abscess. PROCEDURE PERFORMED: Incision and drainage of perirectal abscess. SURGEON: Marcell Morelos MD ANESTHESIA: General ESTIMATED BLOOD LOSS: Minimal. FINDINGS: * Abscess at 1 to 5 o'clock. * Lots of hard indurated tissue. SPECIMEN REMOVED: Pus, some sent for Gram stain culture and sensitivity. COMPLICATIONS: None. PROCEDURE: The patient was brought into the operating room. After proper identification, the patient was placed on the operating table in the supine position. General anesthesia was then administered and the patient was endotracheally intubated. The patient was then placed in the lithotomy position. Attention was then focused in the perianal region. The skin was prepped and draped in the usual sterile fashion. An appropriate time-out was then carried out. I then proceeded to inspect the perianal region. There is a hard indurated area from 1 to 5 o'clock with a lot of hard indurated tissue. I then proceeded to make a cruciate incision. The incision was carried through skin and subcutaneous tissue to the abscess cavity was encountered. Pus was drained out. Some of this was sent for Gram stain culture and sensitivity. There was a lot of hard indurated tissue surrounding. I then copiously irrigated the wound with antibiotic irrigation. Hemostasis was achieved using the Bovie cautery. I then proceeded to pack the wound with 1-inch Iodoform gauze. Sterile dressings were then applied. Instrument and sponge count was found correct x 2. The patient was then woken up, extubated and taken to the recovery room in stable condition. The patient tolerated the procedure well. TID: [id number] RECEIPT: [id number]
[2024-11-19] MEDS: FAMOTIDINE 20MG VIAL IV SCH (21:07)
--- NOTE | 2024-11-19 23:12 | CONS ---
[facility] CONSULTATION NOTE Date Patient Seen: Nov 19, 2024 Time of Visit: 23:01 Supervising Physician: DR. DESOUZA Reason for Consultation: CRITICAL CARE CONSULT Primary Care Physician: MORALES MARTE Outpatient Specialists: [ ] Inpatient Consults: [ ] PROBLEM LIST: 1. LEFT PERINEAL ABSCESS CONCERN FOR ADRIANO GANGRENE, POA 2. DIABETES TYPE 2 UNCONTROLLED, POA 3. SEPSIS DUE TO PERINEAL ABSCESS, POA 4. ACUTE COMPLICATED CYSTITIS, POA 5. LEFT PERINEAL CELLULITIS, POA Left perineal pain, redness HPI: Patient is a 64-year-old male with past medical history significant for hypertension, diabetes type 2, hyperlipidemia, presented to emergency department complaining of left perineal pain and redness for three days. Per patient report, for the past three days, she has been experiencing increased pain to the left perineal area associated with fever and chills. Today, patient was evalua madhav by his PCP was referred to the emergency department for further evaluation and treatment. Patient denies nausea, vomiting, diarrhea, chest pain, cough, dizziness, or any other symptoms. The workup in the emergency department shows elevated white blood count, blood glucose in the 200s, UA shows UTI. Patient was admitted under the hospitalist care, and benchmark team has been consulted for critical care management. In addition, surgeon, infectious disease specialist, package center supervisor, and urologist have been consulted. In addition, patient was started on antibiotics: Vancomycin, Merrem, and clindamycin. PAST MEDICAL HX: see above PAST SURGICAL HX: noncontributory SOCIAL HISTORY: No tobacco, ETOH, or illicit drug use Coded Allergies: No Known Drug Allergies (Unverified Allergy, Unknown, 11/19/24) REVIEW OF SYSTEMS: 12 point ROS reviewed with patient. Pertinent positives mentioned above. O therwise negative. PHYSICAL EXAM: GENERAL: alert, weak, awake oriented x 3 HEENT: EOMI, Sclera non icteric, moist mucosa NECK: Supple, no JVD, trachea midline LUNGS: Clear breath sounds bilaterally. No wheezes HEART: Regular rate and rhythm. Normal S1 and S2, without murmurs ABD: Abdomen soft, nontender. Bowel sounds present EXT: No clubbing cyanosis or edema NEURO: Alert and oriented to person, follows commands Vital Signs (last 8hr) Date Time Temp Pulse Resp B/P (MAP) Pulse Ox O2 Delivery O2 Flow Rate FiO2 11/19/24 20:30 89 15 117/68 94 Nasal Cannula 2.0 11/19/24 20:00 89 17 132/72 94 Nasal Cannula 2.0 11/19/24 19:30 90 16 134/74 94 Nasal Cannula 2.0 11/19/24 19:20 98.1 11/19/24 19:15 90 16 137/74 94 Nasal Cannula 2.0 11/19/24 18:45 83 17 128/70 95 Nasal Cannula 2.0 11/19/24 18:15 84 16 123/72 94 Nasal Cannula 2.0 11/19/24 18:00 86 19 121/74 94 Nasal Cannula 2.0 11/19/24 17:45 82 15 121/68 97 Nasal Cannula 2.0 11/19/24 17:40 95 Nasal Cannula* 2 28 11/19/24 17:30 99.7 81 18 120/73 95 Nasal Cannula 2.0 11/19/24 17:27 98.1 84 15 135/73 98 Nasal Cannula 2.0 24 11/19/24 17:22 82 16 131/70 97 Nasal Cannula 2.0 24 11/19/24 17:17 83 18 136/69 97 Nasal Cannula 2.0 24 11/19/24 17:12 84 18 134/82 97 Nasal Cannula 2.0 11/19/24 17:07 84 16 136/76 97 Nasal Cannula 2.0 24 11/19/24 17:02 83 15 138/72 98 Nasal Cannula 2.0 24 11/19/24 16:57 88 15 139/78 98 Nasal Cannula 2.0 11/19/24 16:52 87 17 137/69 98 Nasal Cannula 2.0 11/19/24 16:47 92 17 127/76 98 Nasal Cannula 2.0 24 11/19/24 16:42 95 16 125/80 100 Nonrebreathing Mask 10.0 100 11/19/24 16:37 92 18 129/75 100 Nonrebreathing Mask 10.0 100 11/19/24 16:32 94 18 132/72 100 Nonrebreathing Mask 10.0 100 11/19/24 16:27 97.9 96 15 124/75 100 Nonrebreathing Mask 10.0 100 LABS: Hematology Labs: Test 11/19/24 08:12 Range/Units White Blood Count 13.0 H 4.8-10.8 K/uL Red Blood Count 5.22 4.50-6.20 MIL/uL Hemoglobin 15.0 14.0-18.0 g/dL Hematocrit 45.7 42-54 % Mean Corpuscular Volume 87.5 79-99 fL Mean Corpuscular Hemoglobin 28.7 27.0-33.0 pg Mean Corpuscular Hemoglobin Concent 32.8 32.0-36.0 g/dL Red Cell Distribution Width 12.8 11.0-15.5 % Platelet Count 300 130-400 K/uL Mean Platelet Volume 11.0 H 7.5-10.5 fL Immature Granulocyte % (Auto) 0.3 0-1 % Neutrophils (%) (Auto) 74.5 40.0-77.0 % Lymphocytes (%) (Auto) 13.4 L 21.0-51.0 % Monocytes (%) (Auto) 9.0 3.0-13.0 % Eosinophils (%) (Auto) 2.3 0.0-8.0 % Basophils (%) (Auto) 0.5 0.0-5.0 % Neutrophils # (Auto) 9.7 H 1.8-7.7 K/uL Lymphocytes # (Auto) 1.7 1.0-4.8 K/uL Monocytes # (Auto) 1.2 H 0.1-1.0 K/uL Eosinophils # (Auto) 0.30 0.00-0.70 K/uL Basophils # (Auto) 0.06 0.00-0.20 K/uL Absolute Immature Granulocyte (auto 0.04 0-1 K/uL Nucleated Red Blood Cells 0.0 0.0-0.19 % Erythrocyte Sedimentation Rate 50 H 0-20 MM/HR Chemistry Labs: Test 11/19/24 22:18 11/19/24 18:57 11/19/24 12:01 11/19/24 10:36 Range/Units Whole Blood Glucose 163 H 70-110 MG/DL Sodium Level 132 L 136-145 mmol/L Potassium Level 3.8 3.5-5.1 mmol/L Chloride Level 101 101-111 mmol/L Carbon Dioxide Level 26 21-32 mmol/L Blood Urea Nitrogen 10 7-18 mg/dL Creatinine 0.6 0.5-1.3 mg/dL Glomerular Filtration Rate Calc 108 >90 mL/min Random Glucose 142 H 70-105 mg/dL Total Calcium 8.6 8.5-10.1 mg/dL Lactic Acid Level 1.2 0.8-2.5 mmol/L Whole Blood Ketones Quantitative 2.1 H 0.0-0.6 mmol/L Test 11/19/24 08:12 Range/Units Magnesium Level 2.00 1.80-2.40 mg/dL Total Bilirubin 1.0 0.2-1.0 mg/dL Direct Bilirubin 0.2 0.0-0.3 mg/dL Aspartate Amino Transf (AST/SGOT) 17 10-37 U/L Alanine Aminotransferase (ALT/SGPT) 20 12-78 U/L Alkaline Phosphatase 112 50-136 U/L Lactate Dehydrogenase 238 H 81-234 U/L Total Creatine Kinase 61 21-232 U/L Troponin I High Sensitivity 5 4-75 ng/L C-Reactive Protein, Quantitative 78.20 H 0.5-3.0 mg/L Total Protein 8.6 H 6.0-8.3 g/dL Albumin 3.5 3.5-5.0 g/dL Procalcitonin < 0.05 L 0.05-0.5 ng/mL Coagulation Labs: Test 11/19/24 08:12 Range/Units Prothrombin Time 10.8 9.6-11.6 SEC Prothromb Time International Ratio 1.02 0.85-1.15 Activated Partial Thromboplast Time 27.6 26.3-35.5 SEC DIAGNOSTICS / RADIOLOGY RESULTS: [ ] PLAN NEURO: Minimize central acting medications as possible. Fall Precautions. Well lighted room through the day and minimize interruptions through the night to prevent acute delirium. PULMONARY: Supplemental 02 as needed Titrate Fio2 to keep Spo2 > or = 90% DuoNebs and CPT as needed IS hourly while awake for pulmonary hygiene Out of bed to chair as tolerated VAP Bundle Vent/BIPAP Settings: [ ] Driving pressure: [ ] P Plat: [ ] Static C: [ ] Static R: [ ] P/F Ratio: [ ] CARDIOVASCULAR: Follow hemodynamics. Titrate vasopressor to keep MAP >65 or systolic blood pressure >95mmHg DIPS: [ ] LINES: [ ] GI & NUTRITION: Continue nutritional support Aspirations precautions Prokinetic agents and laxatives as needed KIDNEYS & ELECTROLYTES: Strict monitoring of intake and output Daily weights Avoid nephrotoxic agents Monitor electrolytes and replace as needed Goal urine output of 30mL/hr or 0.5mL/kg/hr Urine output: [ ] Fluid Balance: [ ] ENDOCRINE: Maintain blood glucose between 100-180 at all times. Insulin sliding scale for blood glucose management INFECTIOUS DISEASE: Trend temperature. Naik-culture if febrile. Micro: [ ] Antibiotics: Vancomycin, Merrem, clindamycin HEMATOLOGY & COAGULATION: Monitor H&H. Keep Hgb > 7 Transfuse 1 unit of PRBC for Hgb < 7 Transfuse 1 pack of platelets of platelets < 20, 000 Watch for any signs and symptoms of bleeding SKIN: Pressure ulcer prevention per facility protocol Rehab: PT/OT Prophylaxis: GI: Famotidine DVT: SCDs Code Status: Full Resuscitation Disposition: PENDING ABOVE Other: Total patient care time exceeds 35 minutes excluding all procedures. Case was discussed and seen with my supervising physician DR. DESOUZA. The above plan was formulated and agreed upon. SAVANNAH REED Nov 19, 2024 23:12
[2024-11-20] VITALS (24 sets, daily range): BP systolic 91–142; BP diastolic 39–72; PULSE 68–83; RESP 16–30; TEMP 98–99.3; O2SAT 93–96
--- NOTE | 2024-11-20 00:38 | HMCIMG ---
US SCROTUM & CONTENTS HISTORY: No additional history given. COMPARISON: None TECHNIQUE: Duplex scrotal ultrasound study was performed. FINDINGS: The right testes measures 5 x 3.3 x 2 point cm. The left testes measures 5.3 x 3.1 x 2.6 cm. No evidence of intratesticular mass or abnormal calcification is seen. Normal flow is demonstrated in the testes and epididymides bilaterally. No hydroceles or varicocele is seen. There is right scrotum wall hyperemia measuring 1.6 x 0.9 x 2 cm consistent with inflammatory changes with recent abscess drainage. IMPRESSION: 1. No evidence of intratesticular mass is seen. 2. Normal flow is demonstrated of both testes. There is right scrotum wall hyperemia measuring 1.6 x 0.9 x 2 cm consistent with inflammatory changes with recent abscess
[2024-11-20 00:50] LABS: CREATININE 0.6 mg/dL (0.5-1.3); POTASSIUM 3.6 mmol/L (3.5-5.1)
[2024-11-20 02:07] LABS: HEMOGLOBIN A1C 8.7 % (4.0-6.0)
[2024-11-20] MEDS: MEROPENEM 1GM 1 GM VIAL IVPB SCH (03:38)
--- NOTE | 2024-11-20 03:59 | CONS ---
REQUESTING PHYSICIAN: Carroll Glasgow MD REASON FOR CONSULTATION: Perineal abscess and perianal abscess. HISTORY OF PRESENT ILLNESS: A 64-year-old male who presents to the Emergency Room because of perineal pain and perianal pain for the last 3 days. The patient is status post incision and drainage of a perianal abscess. The patient is also noted to have on scrotum, two sebaceous cysts, each measuring about 1 cm each. He has tried to manipulate these over the last two years on multiple occasions. There is no sign of active infection or hidradenitis at this time. The patient is voiding well. ALLERGIES: None. He is currently being treated for DKA with a lactic acid of 2.2. He is currently being treated with vancomycin as well as morphine, Zofran, clindamycin, acetaminophen. PAST MEDICAL HISTORY: Significant for diabetes. PAST SURGICAL HISTORY: Significant for surgical fixation of right hip femur. FAMILY HISTORY: Negative for kidney stones. 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 Stopped smoking about 3 years ago. REVIEW OF SYSTEMS: He has no shortness of breath, no chest pain. His appetite is good. No nausea. No vomiting. No constipation or diarrhea. No headaches or dizziness. No bleeding tendencies or nosebleed. PHYSICAL EXAMINATION: GENERAL: A well-developed male, currently in no distress. VITAL SIGNS: Temperature is 98. Blood pressure 140/90 with a pulse of 90. NECK: Has no adenopathy or supraclavicular masses palpable. LUNGS: Lung vela are clear to auscultation. HEART: Heart sounds are best heard in the fifth intercostal space. ABDOMEN: Flat, soft, nontender. BACK: No CVA tenderness. GENITALIA AND RECTAL: Phallus free of any lesions. On the scrotum, he has sebaceous cysts, which are not infected, not indurated, nontender, measuring about 1 cm each. In the perianal area, he has a large dressing from recent incision and drainage. LABORATORY DATA: All carefully reviewed. Urinalysis shows clear yellow urine, specific gravity 1.032. The patient's occult blood, nitrates, leukocyte esterase are all negative. There are no white cells or red cells seen. White count was 13, hematocrit is 45, platelet count is 300. Sodium 134, potassium 4.2. BUN and creatinine are 15/0.7. IMAGING STUDIES: specifically the patient has hydronephrosis. No evidence of any calcifications or stones. The patient does have a perianal collection measuring about 2 x 3 cm. The patient's bladder is smooth, not unusually distended. ASSESSMENT: * Perianal abscess, status post incision and drainage by general surgery about 2 hours ago. * Sebaceous cyst above the scrotum. * Poorly controlled diabetes. * Noncompliance. RECOMMENDATIONS: * Continue with wound care as per general surgery recommendations. * Following discharge, follow up with PCP for referral to urology regarding excision of scleral lesions. * The patient's concerns were answered. * PSA. Thank you for the opportunity of providing consultation on your patient. TID: [id number] RECEIPT: [id number]
--- NOTE | 2024-11-20 04:08 | CONS ---
INFECTIOUS DISEASE CONSULTATION NOTE DATE OF SERVICE: 11/19/2024 REQUESTING PHYSICIAN: Carroll Glasgow MD REASON FOR CONSULTATION: Sepsis and perineal abscess. HISTORY OF PRESENT ILLNESS: This is a 64-year-old male with history of diabetes mellitus, hypertension and dyslipidemia, presenting to the hospital with perineal pain, swelling, and redness. Symptoms started 3 days ago. The patient is also complaining of weakness. The patient will be admitted as a case of possible sepsis. 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 PAST MEDICAL HISTORY: * Hypertension. * Diabetes mellitus. * Dyslipidemia. PAST SURGICAL HISTORY: Right femur fracture surgery. ALLERGIES: No known drug allergies. CURRENT MEDICATIONS: Reviewed. SOCIAL HISTORY: Lives with . No alcohol, tobacco, or illicit drug use. FAMILY HISTORY: Positive for diabetes mellitus. REVIEW OF SYSTEMS: CONSTITUTIONAL: No fever. Positive for chills. No weight loss or night sweats. EYES: No eye pain. No photophobia or diplopia. HENT: No sore throat, no rhinorrhea. NECK: No neck pain, no neck swelling. RESPIRATORY: No cough. No hemoptysis or pleuritic pain. CARDIOVASCULAR: No chest pain. No palpitation or orthopnea. GASTROINTESTINAL: Positive for nausea, but no vomiting. GENITOURINARY: Positive for scrotal pain, swelling and redness. No discharge or drainage. CENTRAL NERVOUS SYSTEM: No headache, dyspnea or slurred speech. PSYCHIATRIC: No depression, no suicidal ideation. PHYSICAL EXAMINATION: GENERAL: Elderly male, awake. VITAL SIGNS: Temperature 98.6, pulse 85, respirations 16, BP 117/72. EYES: No icterus. Pupils equal and reactive. HENT: No oral thrush seen. Moist oral mucosa. NECK: Supple. No JVD or thyromegaly. LUNGS: Good air entry. No rales, no rhonchi. CARDIOVASCULAR: S1 and S2 regular. No murmur heard. ABDOMEN: Full, soft, nontender. Bowel sound is present. CENTRAL NERVOUS SYSTEM: Awake, alert, oriented x 3. No focal deficits. SKIN: No rashes or itchiness. LYMPHATIC: No peripheral lymphadenopathy. BACK: No deformity, no pressure ulcer. EXTREMITIES: No pedal edema. GENITOURINARY: The patient has pustules involving the scrotal wall. The area of abscess involving the left perineal area. It is very tender. LABORATORY DATA: Sodium 134, potassium 4.2, BUN 15, creatinine 0.3. WBC 13.0, hemoglobin 15.0, platelet 300. RADIOLOGY: CT of the abdomen and pelvis result reviewed. ASSESSMENT: A 64-year-old male presented with perineal pain, swelling, redness. Current problems include: * Perineal abscess. 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 * Diabetic ketoacidosis. * Hypertension. * Leukocytosis. * Sepsis. PLAN: * Continue pain management. * Continue wound care. * Continue antidiabetic. * Continue antihypertensive. * Continue cefepime. * Continue clindamycin. * Continue vancomycin. * Monitor electrolytes. * The patient will need surgical intervention. TID: [id number] RECEIPT: [id number] MTDD
[2024-11-20 04:12] LABS: BASOPHILS # (AUTO) 0.03 K/uL (0.00-0.20); BASOPHILS % (AUTO) 0.3 % (0.0-5.0); EOSINOPHILS # (AUTO) 0.48 K/uL (0.00-0.70); EOSINOPHILS % (AUTO) 4.5 % (0.0-8.0); HEMATOCRIT 39.3 % (42-54); IMMATURE GRANULOCYTE ABSOLUTE 0.04 K/uL (0-1); LYMPHOCYTES # (AUTO) 2.1 K/uL (1.0-4.8); LYMPHOCYTES % (AUTO) 19.8 % (21.0-51.0); MEAN CORPUSCULAR HEMOGLOBIN 28.4 pg (27.0-33.0); MEAN CORPUSCULAR HGB CONC 32.6 g/dL (32.0-36.0); MEAN CORPUSCULAR VOLUME 87.3 fL (79-99); MONOCYTES # (AUTO) 1.1 K/uL (0.1-1.0); MONOCYTES % (AUTO) 10.6 % (3.0-13.0); NEUTROPHILS % (AUTO) 64.4 % (40.0-77.0); PLATELET COUNT (AUTO) 276 K/uL (130-400); RED CELL DISTRIBUTION WIDTH 12.7 % (11.0-15.5); WHITE BLOOD COUNT (AUTO) 10.8 K/uL (4.8-10.8)
[2024-11-20 04:29] LABS: ALBUMIN 2.7 g/dL (3.5-5.0); BILIRUBIN,TOTAL 0.9 mg/dL (0.2-1.0); CREATININE 0.6 mg/dL (0.5-1.3); MAGNESIUM 1.9 mg/dL (1.80-2.40); POTASSIUM 3.5 mmol/L (3.5-5.1); TOTAL PROTEIN, SERUM 6.7 g/dL (6.0-8.3)
[2024-11-20] MEDS: VANCOMYCIN 1.25 GM/250 ML BAG 250 ML IV SCH (05:54)
--- NOTE | 2024-11-20 07:24 | CONS ---
CONSULT NOTE: endocrinology consult Date of Service: Nov 20, 2024 chief complaint: perianal pain reason for consult: euglycemic dka and dm-2 HISTORY OF PRESENT ILLNESS: 64-year-old male with underlying history of hypertension, hyperlipidemia, type 2 diabetes mellitus (maintained on outpatient insulin as well as metformin, [facility]), who presented to the ER for further evaluation of left perianal pain s/p I&D, He was previously hospitalized in [facility] couple of years ago after he fell and sustained a right femur fracture requiring surgical fixation. Patient denies any active chest pain, shortness of breath. Last bowel movement was yesterday. On presentation to the hospital, patient was noted to be afebrile with T-max of 98.1 F, heart rate of 97, blood pressure 140/95. Labs [place] [address], hemoglobin of 15, platelet count of 849292. BMP remarkable for sodium of 134, potassium 4.2, creatinine 0.7, blood glucose of 187, lactic acid of 2.2, CRP of 78.20. 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 Patient was also noted to have bilateral hydroceles involv ing with right scrotal wall thickening. he was treated with insulin drip for early mild euglycemic DKA and glucose less than 250 mg/dl. off insulin drip. ketones was elevated but bicarb was normal. hba1c 8.7% REVIEW OF SYSTEMS CONSTITUTIONAL: Denies fevers, chills, or night sweats. No unintentional weight loss reported. NEUROLOGICAL: Denies headache, amaurosis fugax, motor weakness, sensory deficit, vertigo/spinning sensation, gait abnormalities, or tremors. ENT: No hearing loss, otalgia, otorrhea, rhinitis, rhinorrhea, hoarseness, or sore throat. CARDIOVASCULAR: Denies any exertional angina, dyspnea on exertion, orthopnea, paroxysmal nocturnal dyspnea, palpitations, life-threatening arrhythmias, claudication. PULMONARY: Denies any shortness of breath, cough, phlegm/sputum, hemoptysis, pleuritic chest pain. SLEEP: Denies morning headaches, daytime somnolence or napping. Denies difficulty falling asleep, staying asleep, waking from sleep. Denies knowledge of snoring. GASTROINTESTINAL: Redness, swelling and induration involving the left perianal region GENITOURINARY: Denies frequency, urgency, nocturia, hematuria or incontinence (Storage/Irritative symptoms.) Low urinary stream, straining to void, urinary intermittency or hesitancy, splitting of the voiding stream, terminal dribbling. ENDOCRINOLOGIC: Denies polyuria, polydipsia, polyphagia or heat/cold intolerances. HEMATOLOGIC: Denies thrombophilia/previous clots, or coagulopathy/bleeding disorders. ONCOLOGIC: Denies personal history of malignancy. DERMATOLOGIC: Denies rashes or pruritus. PSYCHIATRIC: Denies any suicidal or homicidal ideation. Denies hallucinations. PAST MEDICAL HISTORY: Hypertension, hyperlipidemia, type 2 diabetes mellitus maintained on outpatient insulin, metformin, Farxiga PAST SURGICAL HISTORY: Patient has a history of operative fixation of the right femur after he sustained a fall from [facility] PAST SOCIAL HISTORY: Patient denies active smoking or alcohol consumption FAMILY HISTORY: Denies pertinent family history Allergies: No known drug allergies Medications: Patient is on outpatient lisinopril 5 mg daily, Metformin 850 mg daily, atorvastatin 10 mg daily, Farxiga 5 mg daily, Humulin/Novolin NPH 16 units twice daily Coded Allergies: No Known Drug Allergies (Unverified Allergy, Unknown, 11/19/24) PHYSICAL EXAM GENERAL APPEARANCE: The patient is awake, alert, and oriented, in no acute cardiopulmonary distress. NEUROLOGICAL: Cranial nerves II-XII grossly intact. Motor is 5/5 in bilateral upper and lower extremities proximal to distal. No sensory deficits. HEENT: Face is symmetric. Pupils are equal and reactive. Extraocular movements are intact. NECK: Supple. No JVD. No thyromegaly. No submental, submandibular, pre-/postauricular, occipital or supraclavicular lymphadenopathy. CHEST: Normal chest expansion. No Telemetry. LUNGS: Absence of any rales, rhonchi or any wheezing. CARDIOVASCULAR: Regular. S1 and S2 normal. No appreciable rubs, murmurs or gallops. EXTREMITIES: Non-edematous and not cyanotic. No clubbing. Good capillary refill. DIAGNOSTICS / RADIOLOGY: SERVICE 0839 REASON: testicular abscess rule our forneirs ORDERING PHYSICIAN: PARAMJIT HOOK MD PROCEDURE: ABD PEL W - CT ABDOMEN/PELVIS W/CONTRAST CT ABDOMEN/PELVIS W/CONTRAST HISTORY: Testicular abscess COMPARISON: None TECHNIQUE: Multiple sequential axial images of the abdomen and pelvis were obtained from the dome of the diaphragm through symphysis pubis. Patient was given 75 cc of Omnipaque through intravenous route. Oral contrast was not given. FINDINGS: No pleural effusion is seen bilaterally. There is no evidence of parenchymal disease or pulmonary nodule of the visualized lower lungs. Degenerative changes of the thoracolumbar spine are present. The heart is not enlarged. Liver measures 16 cm. Postcholecystectomy changes are seen. The liver, spleen, adrenal glands and pancreas are unremarkable. There is no evidence of hydronephrosis bilaterally. No evidence of renal stone is seen. Fecal material is seen in the colon. There are normal size retroperitoneal and mesenteric lymph nodes. No ascites is seen. Mild atherosclerotic changes are seen. No CT evidence of acute appendicitis is seen. There is fluid-filled structure measuring 3.3 x 2.1 cm near the left perianal region suggestive of abscess. 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 There may be bilateral hydroceles with left more than right with scrotal wall thickening. Pelvic sidewalls are symmetric bilaterally. Bladder is well distended without wall thickening. IMPRESSION: 1. There is fluid-filled structure measuring 3.3 x 2.1 cm near the left perianal region suggestive of abscess. 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 There may be bilateral hydroceles with left more than right with scrotal wall thickening. CT was performed with one or more following dose reduction techniques: automated exposure control, adjustment of the mA and kv according to patient's size, or use of a iterative reconstruction technique. DICTATED BY: LAKEISHA BUCIO MD DATE: 11/19/24909 ELECTRONICALLY SIGNED BY: LAKEISHA BUCIO MD DATE: 11/19/24914 ASSESSMENT: possible euglycemic DKA, POA resolved he was treated with insulin drip for early mild euglycemic DKA and glucose less than 250 mg/dl. off insulin drip. ketones was elevated but bicarb was normal. hba1c 8.7% off insulin drip. 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 patient can resume insulin and metformin at discharge. he can follow with me in clinic in 1 week. thanks for allowing me to participate in patient care and will continue to follow up. Vital Signs 11/20/24 11/20/24 11/20/24 00:00 03:30 04:00 Temp 99.1 Pulse 70 Resp 19 B/P (MAP) 96/47 Pulse Ox 96 O2 Delivery Nasal Cannula* O2 Flow Rate 2 FiO2 28 Hematology Labs: Test 11/20/24 03:52 11/19/24 08:12 Range/Units White Blood Count 10.8 4.8-10.8 K/uL Red Blood Count 4.50 4.50-6.20 MIL/uL Hemoglobin 12.8 L 14.0-18.0 g/dL Hematocrit 39.3 L 42-54 % Mean Corpuscular Volume 87.3 79-99 fL Mean Corpuscular Hemoglobin 28.4 27.0-33.0 pg Mean Corpuscular Hemoglobin Concent 32.6 32.0-36.0 g/dL Red Cell Distribution Width 12.7 11.0-15.5 % Platelet Count 276 130-400 K/uL Mean Platelet Volume 11.1 H 7.5-10.5 fL Immature Granulocyte % (Auto) 0.4 0-1 % Neutrophils (%) (Auto) 64.4 40.0-77.0 % Lymphocytes (%) (Auto) 19.8 L 21.0-51.0 % Monocytes (%) (Auto) 10.6 3.0-13.0 % Eosinophils (%) (Auto) 4.5 0.0-8.0 % Basophils (%) (Auto) 0.3 0.0-5.0 % Neutrophils # (Auto) 7.0 1.8-7.7 K/uL Lymphocytes # (Auto) 2.1 1.0-4.8 K/uL Monocytes # (Auto) 1.1 H 0.1-1.0 K/uL Eosinophils # (Auto) 0.48 0.00-0.70 K/uL Basophils # (Auto) 0.03 0.00-0.20 K/uL Absolute Immature Granulocyte (auto 0.04 0-1 K/uL Nucleated Red Blood Cells 0.0 0.0-0.19 % Erythrocyte Sedimentation Rate 50 H 0-20 MM/HR Chemistry Labs: Test 11/20/24 05:57 11/20/24 03:52 11/19/24 10:36 11/19/24 08:12 Range/Units Whole Blood Glucose 155 H 70-110 MG/DL Sodium Level 135 L 136-145 mmol/L Potassium Level 3.5 3.5-5.1 mmol/L Chloride Level 101 101-111 mmol/L Carbon Dioxide Level 27 21-32 mmol/L Blood Urea Nitrogen 7 7-18 mg/dL Creatinine 0.6 0.5-1.3 mg/dL Glomerular Filtration Rate Calc 108 >90 mL/min Random Glucose 146 H 70-105 mg/dL Lactic Acid Level 1.6 0.8-2.5 mmol/L Total Calcium 8.1 L 8.5-10.1 mg/dL Magnesium Level 1.90 1.80-2.40 mg/dL Total Bilirubin 0.9 0.2-1.0 mg/dL Aspartate Amino Transf (AST/SGOT) 26 10-37 U/L Alanine Aminotransferase (ALT/SGPT) 36 # 12-78 U/L Alkaline Phosphatase 142 #H 50-136 U/L Total Protein 6.7 # 6.0-8.3 g/dL Albumin 2.7 #L 3.5-5.0 g/dL Hemoglobin A1c 8.7 H 4.0-6.0 % Estimated Average Glucose (eAG) 203 H 70-126 mg/dL Whole Blood Ketones Quantitative 2.1 H 0.0-0.6 mmol/L Direct Bilirubin 0.2 0.0-0.3 mg/dL Lactate Dehydrogenase 238 H 81-234 U/L Total Creatine Kinase 61 21-232 U/L Troponin I High Sensitivity 5 4-75 ng/L C-Reactive Protein, Quantitative 78.20 H 0.5-3.0 mg/L Procalcitonin < 0.05 L 0.05-0.5 ng/mL Coagulation Labs: Test 11/19/24 08:12 Range/Units Prothrombin Time 10.8 9.6-11.6 SEC Prothromb Time International Ratio 1.02 0.85-1.15 Activated Partial Thromboplast Time 27.6 26.3-35.5 SEC Current Medications Medications (Trade) Dose Ordered Sig/Shanda Route Start Time Stop Time Status Last Admin Dose Admin Clindamycin HCl/ Dextrose 50 ml @ 100 mls/hr Q8H IV 11/19/24 10:30 11/29/24 10:29 11/20/24 02:07 100 MLS/HR Dextrose/Sodium Chloride 1,000 ml @ 0 mls/hr AD IV 11/19/24 11:00 12/19/24 10:59 11/19/24 14:50 150 MLS/HR Famotidine (Pepcid 20mg Vial) 20 mg BID IV 11/19/24 21:00 12/19/24 20:59 11/19/24 21:07 20 MG Famotidine (Pepcid 20mg Tab) 20 mg Q12H PO 11/19/24 10:00 11/19/24 11:16 DC 11/19/24 10:46 20 MG Insulin Human Regular (humuLIN R 100 UNIT/ML 3ML) INSULIN SLIDING SCAL... ACHS SQ 11/19/24 11:30 11/19/24 10:52 DC Insulin Human Regular 100 unit/ Sodium Chloride 101 ml @ 0 mls/hr PROTOCOL IV 11/19/24 11:00 12/19/24 10:59 11/19/24 14:50 0.5 MLS/HR Lactated Ringer's 1,000 ml @ 100 mls/hr Q10H IV 11/19/24 10:00 11/19/24 10:50 DC Magnesium Sulfate 50 ml @ 0 mls/hr PROTOCOL IV 11/19/24 11:00 12/19/24 10:59 Meropenem (Merrem 1gm) 1 gm Q8H IVPB 11/19/24 17:00 11/19/24 22:51 DC 11/19/24 19:49 1 GM Meropenem (Merrem 1gm) 1 gm Q8H IVPB 11/20/24 04:00 11/30/24 03:59 11/20/24 03:38 1 GM Pharmacy Profile Note (Pharmacy Communication) 1 each ONCE MISC 11/19/24 10:00 11/19/24 10:18 DC Potassium Chloride/Dextrose/ Sod Cl 1,000 ml @ 0 mls/hr AD IV 11/19/24 11:00 12/19/24 10:59 11/20/24 00:49 150 MLS/HR Vancomycin HCl 250 ml @ 125 mls/hr Q12H IV 11/20/24 06:00 11/30/24 05:59 11/20/24 05:54 125 MLS/HR Vancomycin HCl (Vancomycin Protocol) 1 each AD IV 11/19/24 09:00 12/03/24 08:59 LAUREN MOMIN MD Nov 20, 2024 07:24
--- NOTE | 2024-11-20 10:00 | NUR ---
MET WITH PATIENT AT BEDSIDE IN 215; CONFIRMED CORRECT PHONE NUMBERS ADDRESS AND NEXT OF KIN. STATES PREVIOUSLY INDEPENDENT, NO DME, HOME SAFE AND ACCESSIBLE; DENIES FINANCIAL STRAI, NO SERVICES OR PROVIDER. SPOUSE DOES ALL THE DRIVING. PT NOTED TO BE FIDGETY . SPOKE TO SPOUSE, ASKED ABOUT ETOH OR SUBSTANCE PATTERN. SPOUSE DENIES. PLAN OF CARE EXPLAINED TO MILO MCLAUGHLIN AND SPOUSE BRIEFLY OUTSIDE O ROOM. PT AGREEABLE TO WHAT EVER MD'S DECIDE FOR AFTERCARE Addendum: 11/21/24 at 1611 by LEONEL BARLOW RN CM Amended: Links added.
[2024-11-20] MEDS: INSULIN humuLIN R 100 UNIT/ML 3ML SQ SCH (11:27)
--- NOTE | 2024-11-20 12:00 | NUR ---
NO ACUTE CHANGES NOTED. BM X 1. IV SITE TO LEFT HAD REMOVED DUE TO PAIN
[2024-11-20] MEDS: ketOROlac 15MG/ML VIAL (15MG/ML) IV PRN (12:42)
--- NOTE | 2024-11-20 13:25 | NUR ---
DRESSING CHANGED PER MD ORDERS. PT PREMEDICATED WITH TORADOL BEFORE. IODORM GAUZE REMOVED. NEW IODOFORM 1 INCH GAUZE PACKED INTO WOUND X 1 LONG STRIP . SAME AMT FROM OR. COVERED WITH 4X4 And ABD PAD
--- NOTE | 2024-11-20 13:31 | PN ---
INFECTIOUS DISEASE PROGRESS NOTE Date of Service: Nov 20, 2024 SUBJECTIVE: This is a 64-year-old male patient who is status post incision and drainage of a perianal abscess day # 1. Patient is afebrile, temperature is 98.1 and the WBC has trended down to 10.8. We will continue on vancomycin, clindamycin and Meropenem and follow up on the wound cultures results. We will have case management evaluate patient for referral to [facility]. PHYSICAL EXAM EYES: Anicteric. Pupils equal and reactive. HENT: No oral thrush seen, moist Oral mucosa. NECK: Supple, no JVD or thyromegaly. LUNGS: Good air entry. No rales, no rhonchi. CARDIOVASCULAR: S1, S2 regular. No murmur heard. ABDOMEN: Soft, non tender, bowel sounds pre sent, no organomegaly. CENTRAL NERVOUS SYSTEM: Awake, alert, oriented x 3. SKIN: No rashes, no swelling. LYMPHATICS: No peripheral lymphadenopathy. MUSCULOSKELETAL: No joint swelling, erythema or tenderness. EXTREMITIES: No cyanosis or clubbing. BACK: No deformity, no pressure ulcer. RECTUM: Perineal abscess. GENITOURINARY: No dysuria or hematuria. Vital Sign (Last 12 Hours) 11/20/24 11/20/24 11/20/24 11/20/24 01:30 02:00 02:30 03:00 Pulse 74 72 77 83 Resp 20 20 21 18 B/P (MAP) 100/45 109/45 100/49 91/47 Pulse Ox 93 93 93 95 O2 Delivery Nasal Cannula Nasal Cannula Nasal Cannula Nasal Cannula O2 Flow Rate 2.0 2.0 2.0 2.0 11/20/24 11/20/24 11/20/24 11/20/24 03:30 04:00 04:00 04:30 Temp 99.3 Pulse 70 73 68 Resp 19 20 18 B/P (MAP) 96/47 98/49 110/61 Pulse Ox 94 96 94 93 O2 Delivery Nasal Cannula Nasal Cannula* Nasal Cannula Nasal Cannula O2 Flow Rate 2.0 2 2.0 2.0 FiO2 28 11/20/24 11/20/24 11/20/24 11/20/24 05:00 05:30 06:00 06:30 Pulse 73 75 76 77 Resp 16 20 16 21 B/P (MAP) 109/58 112/62 101/61 110/48 Pulse Ox 93 94 94 94 O2 Delivery Nasal Cannula Nasal Cannula Nasal Cannula Nasal Cannula O2 Flow Rate 2.0 2.0 2.0 2.0 11/20/24 11/20/24 11/20/24 11/20/24 07:00 07:30 08:00 08:00 Temp 98.1 Pulse 76 78 75 Resp 22 20 16 B/P (MAP) 110/62 114/63 100/39 Pulse Ox 94 93 95 95 O2 Delivery Nasal Cannula Nasal Cannula Room Air Room Air* O2 Flow Rate 2.0 2.0 0 FiO2 21 11/20/24 11/20/24 11/20/24 10:00 11:00 12:00 Temp 98.2 Pulse 80 74 81 Resp 27 30 18 B/P (MAP) 128/71 112/72 Pulse Ox 96 96 96 O2 Delivery Room Air Intake & Output (last 24hrs) 11/19/24 11/19/24 11/20/24 15:00 23:00 07:00 Intake Total 160.0 ml 1303.0 ml 1754.4 ml Output Total 400 ml 750 ml Balance -240.0 ml 553.0 ml 1754.4 ml LABS: Laboratory: Test 11/20/24 11:16 11/20/24 03:52 11/19/24 10:36 11/19/24 08:19 Range/Units Whole Blood Glucose 139 H 70-110 MG/DL White Blood Count 10.8 4.8-10.8 K/uL Red Blood Count 4.50 4.50-6.20 MIL/uL Hemoglobin 12.8 L 14.0-18.0 g/dL Hematocrit 39.3 L 42-54 % Mean Corpuscular Volume 87.3 79-99 fL Mean Corpuscular Hemoglobin 28.4 27.0-33.0 pg Mean Corpuscular Hemoglobin Concent 32.6 32.0-36.0 g/dL Red Cell Distribution Width 12.7 11.0-15.5 % Platelet Count 276 130-400 K/uL Mean Platelet Volume 11.1 H 7.5-10.5 fL Immature Granulocyte % (Auto) 0.4 0-1 % Neutrophils (%) (Auto) 64.4 40.0-77.0 % Lymphocytes (%) (Auto) 19.8 L 21.0-51.0 % Monocytes (%) (Auto) 10.6 3.0-13.0 % Eosinophils (%) (Auto) 4.5 0.0-8.0 % Basophils (%) (Auto) 0.3 0.0-5.0 % Neutrophils # (Auto) 7.0 1.8-7.7 K/uL Lymphocytes # (Auto) 2.1 1.0-4.8 K/uL Monocytes # (Auto) 1.1 H 0.1-1.0 K/uL Eosinophils # (Auto) 0.48 0.00-0.70 K/uL Basophils # (Auto) 0.03 0.00-0.20 K/uL Absolute Immature Granulocyte (auto 0.04 0-1 K/uL Nucleated Red Blood Cells 0.0 0.0-0.19 % Sodium Level 135 L 136-145 mmol/L Potassium Level 3.5 3.5-5.1 mmol/L Chloride Level 101 101-111 mmol/L Carbon Dioxide Level 27 21-32 mmol/L Blood Urea Nitrogen 7 7-18 mg/dL Creatinine 0.6 0.5-1.3 mg/dL Glomerular Filtration Rate Calc 108 >90 mL/min Random Glucose 146 H 70-105 mg/dL Lactic Acid Level 1.6 0.8-2.5 mmol/L Total Calcium 8.1 L 8.5-10.1 mg/dL Magnesium Level 1.90 1.80-2.40 mg/dL Total Bilirubin 0.9 0.2-1.0 mg/dL Aspartate Amino Transf (AST/SGOT) 26 10-37 U/L Alanine Aminotransferase (ALT/SGPT) 36 # 12-78 U/L Alkaline Phosphatase 142 #H 50-136 U/L Total Protein 6.7 # 6.0-8.3 g/dL Albumin 2.7 #L 3.5-5.0 g/dL Hemoglobin A1c 8.7 H 4.0-6.0 % Estimated Average Glucose (eAG) 203 H 70-126 mg/dL Whole Blood Ketones Quantitative 2.1 H 0.0-0.6 mmol/L Urine Color YELLOW YELLOW Urine Appearance CLEAR CLEAR Urine pH 5.0 5.0-8.0 Urine Specific Wilson 1.032 H 1.001-1.031 Urine Protein NEGATIVE NEGATIVE mg/dL Urine Glucose (UA) >=1000 H NEGATIVE mg/dL Urine Ketones 40 H NEGATIVE mg/dL Urine Occult Blood NEGATIVE NEGATIVE Urine Nitrate NEGATIVE NEGATIVE Urine Bilirubin NEGATIVE NEGATIVE mg/dL Urine Urobilinogen 0.2 0.2-1.0 mg/dL Urine Leukocyte Esterase NEGATIVE NEGATIVE Cecy/uL Urine RBC 0-1 0-1 /HPF Urine WBC 2-5 H 0-1 /HPF Urine Squamous Epithelial Cells Rare 0-2 /HPF Urine Bacteria None Seen None Seen /HPF Test 11/19/24 08:12 Range/Units Erythrocyte Sedimentation Rate 50 H 0-20 MM/HR Prothrombin Time 10.8 9.6-11.6 SEC Prothromb Time International Ratio 1.02 0.85-1.15 Activated Partial Thromboplast Time 27.6 26.3-35.5 SEC Direct Bilirubin 0.2 0.0-0.3 mg/dL Lactate Dehydrogenase 238 H 81-234 U/L Total Creatine Kinase 61 21-232 U/L Troponin I High Sensitivity 5 4-75 ng/L C-Reactive Protein, Quantitative 78.20 H 0.5-3.0 mg/L Procalcitonin < 0.05 L 0.05-0.5 ng/mL ASSESSMENT: Perineal abscess, s/p incision and drainage. 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 Sepsis. Leukocytosis. Diabetic ketoacidosis. Hypertension. PLAN: Continue vancomycin per pharmacy protocol. Continue Meropenem. Continue clindamycin. Continue pain management. Continue wound care. Continue antidiabetic. Continue antihypertensive. Will monitor electrolyte. Case management evaluation for referral to [facility] This case was reviewed and discussed with my supervising physician and the above assessment and plan was formulated and agreed upon. ATTESTATION BY PHYSICIAN I have seen and examined the patient. I reviewed the documentation, medical decision making, and treatment plan as noted by the mid-level provider above. I agree with the findings and plan of care. MARIAH PARRA MD, MIRTA L [employer] Nov 20, 2024 13:31
--- NOTE | 2024-11-20 13:57 | NUR ---
HAND OFF REPORT CALLED TO MED SURG NURSE FIDELIA LÓPEZ
--- NOTE | 2024-11-20 14:01 | PN ---
[facility] PROGRESS NOTE Date of Service: Nov 20, 2024 Time of Service: 13:41 SUBJECTIVE: 64-year-old male with underlying history of hypertension, hyperlipidemia, type 2 diabetes mellitus (maintained on outpatient insulin as well as metformin, [facility] presented to [facility] ER was sent here by his doctor for further evaluation of left perianal painful swelling ongoing for the past three days. Patient reports having poor oral intake and significant pain which he rates as 7/10 in intensity. Patient reports having previous history of folliculitis involving the scrotum previously. Denies any previous history of abscess requiring incision and drainage. Patient denied any active chest pain, shortness of breath. Last bowel movement was yesterday. On presentation to the hospital, patient was noted to be afebrile with T-max of 98.1 F, heart rate of 97, blood pressure 140/95. [place] [address], hemoglobin of 15, platelet count of 437948.BMP remarkable for sodium of 134, potassium 4.2, creatinine 0.7, blood glucose of 187, lactic acid of 2.2, CRP of 78.20. 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 11.20.24: Patient underwent Incision and drainage of perirectal abscess By Dr Monk on 11.20.24.Pus is sent for culture and sensitivity. Patient is seen lying on his bed. No pain reported. Surgical site dressing with bloody discharge . Patient is on IV Merrem, IV vancomycin, IV clindamycin. Mean time, he was found to have increased ketone bodies, was treated with insulin drip , D5 with half NS for early euglycemic DKA. Downgraded to med surg floor. Case yandel asad and physical therapy on board. Pending discharge disposition . REVIEW OF SYSTEMS CONSTITUTIONAL: Denies fevers, chills, or night sweats. No unintentional weight loss reported. NEUROLOGICAL: Denies headache, amaurosis fugax, motor weakness, sensory deficit, vertigo/spinning sensation, gait abnormalities, or tremors. ENT: No hearing loss, otalgia, otorrhea, rhinitis, rhinorrhea, hoarseness, or sore throat. CARDIOVASCULAR: Denies any exertional angina, dyspnea on exertion, orthopnea, paroxysmal nocturnal dyspnea, palpitations, life-threatening arrhythmias, claudication. PULMONARY: Denies any shortness of breath, cough, phlegm/sputum, hemoptysis, pleuritic chest pain. SLEEP: Denies morning headaches, daytime somnolence or napping. Denies difficulty falling asleep, staying asleep, waking from sleep. Denies knowledge of snoring. GASTROINTESTINAL: Redness, swelling and induration involving the left perianal region GENITOURINARY: Denies frequency, urgency, nocturia, hematuria or incontinence (Storage/Irritative symptoms.) Low urinary stream, straining to void, urinary intermittency or hesitancy, splitting of the voiding stream, terminal dribbling. ENDOCRINOLOGIC: Denies polyuria, polydipsia, polyphagia or heat/cold intolerances. HEMATOLOGIC: Denies thrombophilia/previous clots, or coagulopathy/bleeding disorders. ONCOLOGIC: Denies personal history of malignancy. DERMATOLOGIC: Denies rashes or pruritus. PSYCHIATRIC: Denies any suicidal or homicidal ideation. Denies hallucinations. PHYSICAL EXAM GENERAL APPEARANCE: The patient is awake, alert, and oriented, in no acute cardiopulmonary distress. NEUROLOGICAL: Cranial nerves II-XII grossly intact. Motor is 5/5 in bilateral upper and lower extremities proximal to distal. No sensory deficits. HEENT: Face is symmetric. Pupils are equal and reactive. Extraocular movements are intact. NECK: Supple. No JVD. No thyromegaly. No submental, submandibular, pre- /postauricular, occipital or supraclavicular lymphadenopathy. CHEST: Normal chest expansion. No Telemetry. LUNGS: Absence of any rales, rhonchi or any wheezing. CARDIOVASCULAR: Regular. S1 and S2 normal. No appreciable rubs, murmurs or gallops. ABDOMEN/ : Erythema, induration, swelling noted of the left perianal region with surrounding erythema noted EXTREMITIES: Non-edematous and not cyanotic. No clubbing. Good capillary refill. Vital Signs (last 8hr) Date Time Temp Pulse Resp B/P (MAP) Pulse Ox O2 Delivery O2 Flow Rate FiO2 11/20/24 12:00 96 Room Air* 0 21 11/20/24 12:00 98.2 81 18 112/72 96 11/20/24 11:00 74 30 96 11/20/24 10:00 80 27 128/71 96 Room Air 11/20/24 08:00 95 Room Air* 0 21 11/20/24 08:00 98.1 75 16 100/39 95 Room Air 11/20/24 07:30 78 20 114/63 93 Nasal Cannula 2.0 11/20/24 07:00 76 22 110/62 94 Nasal Cannula 2.0 11/20/24 06:30 77 21 110/48 94 Nasal Cannula 2.0 11/20/24 06:00 76 16 101/61 94 Nasal Cannula 2.0 LABS: Laboratory: Test 11/20/24 11:16 11/20/24 03:52 11/19/24 10:36 11/19/24 08:19 Range/Units Whole Blood Glucose 139 H 70-110 MG/DL White Blood Count 10.8 4.8-10.8 K/uL Red Blood Count 4.50 4.50-6.20 MIL/uL Hemoglobin 12.8 L 14.0-18.0 g/dL Hematocrit 39.3 L 42-54 % Mean Corpuscular Volume 87.3 79-99 fL Mean Corpuscular Hemoglobin 28.4 27.0-33.0 pg Mean Corpuscular Hemoglobin Concent 32.6 32.0-36.0 g/dL Red Cell Distribution Width 12.7 11.0-15.5 % Platelet Count 276 130-400 K/uL Mean Platelet Volume 11.1 H 7.5-10.5 fL Immature Granulocyte % (Auto) 0.4 0-1 % Neutrophils (%) (Auto) 64.4 40.0-77.0 % Lymphocytes (%) (Auto) 19.8 L 21.0-51.0 % Monocytes (%) (Auto) 10.6 3.0-13.0 % Eosinophils (%) (Auto) 4.5 0.0-8.0 % Basophils (%) (Auto) 0.3 0.0-5.0 % Neutrophils # (Auto) 7.0 1.8-7.7 K/uL Lymphocytes # (Auto) 2.1 1.0-4.8 K/uL Monocytes # (Auto) 1.1 H 0.1-1.0 K/uL Eosinophils # (Auto) 0.48 0.00-0.70 K/uL Basophils # (Auto) 0.03 0.00-0.20 K/uL Absolute Immature Granulocyte (auto 0.04 0-1 K/uL Nucleated Red Blood Cells 0.0 0.0-0.19 % Sodium Level 135 L 136-145 mmol/L Potassium Level 3.5 3.5-5.1 mmol/L Chloride Level 101 101-111 mmol/L Carbon Dioxide Level 27 21-32 mmol/L Blood Urea Nitrogen 7 7-18 mg/dL Creatinine 0.6 0.5-1.3 mg/dL Glomerular Filtration Rate Calc 108 >90 mL/min Random Glucose 146 H 70-105 mg/dL Lactic Acid Level 1.6 0.8-2.5 mmol/L Total Calcium 8.1 L 8.5-10.1 mg/dL Magnesium Level 1.90 1.80-2.40 mg/dL Total Bilirubin 0.9 0.2-1.0 mg/dL Aspartate Amino Transf (AST/SGOT) 26 10-37 U/L Alanine Aminotransferase (ALT/SGPT) 36 # 12-78 U/L Alkaline Phosphatase 142 #H 50-136 U/L Total Protein 6.7 # 6.0-8.3 g/dL Albumin 2.7 #L 3.5-5.0 g/dL Hemoglobin A1c 8.7 H 4.0-6.0 % Estimated Average Glucose (eAG) 203 H 70-126 mg/dL Whole Blood Ketones Quantitative 2.1 H 0.0-0.6 mmol/L Urine Color YELLOW YELLOW Urine Appearance CLEAR CLEAR Urine pH 5.0 5.0-8.0 Urine Specific Calera 1.032 H 1.001-1.031 Urine Protein NEGATIVE NEGATIVE mg/dL Urine Glucose (UA) >=1000 H NEGATIVE mg/dL Urine Ketones 40 H NEGATIVE mg/dL Urine Occult Blood NEGATIVE NEGATIVE Urine Nitrate NEGATIVE NEGATIVE Urine Bilirubin NEGATIVE NEGATIVE mg/dL Urine Urobilinogen 0.2 0.2-1.0 mg/dL Urine Leukocyte Esterase NEGATIVE NEGATIVE Cecy/uL Urine RBC 0-1 0-1 /HPF Urine WBC 2-5 H 0-1 /HPF Urine Squamous Epithelial Cells Rare 0-2 /HPF Urine Bacteria None Seen None Seen /HPF Test 11/19/24 08:12 Range/Units Erythrocyte Sedimentation Rate 50 H 0-20 MM/HR Prothrombin Time 10.8 9.6-11.6 SEC Prothromb Time International Ratio 1.02 0.85-1.15 Activated Partial Thromboplast Time 27.6 26.3-35.5 SEC Direct Bilirubin 0.2 0.0-0.3 mg/dL Lactate Dehydrogenase 238 H 81-234 U/L Total Creatine Kinase 61 21-232 U/L Troponin I High Sensitivity 5 4-75 ng/L C-Reactive Protein, Quantitative 78.20 H 0.5-3.0 mg/L Procalcitonin < 0.05 L 0.05-0.5 ng/mL Current Medications Medications (Trade) Dose Ordered Sig/Shanda Route PRN Reason Start Time Stop Time Status Last Admin Dose Admin Acetaminophen (TYLenol 325MG TAB) 650 mg Q6H PRN PO MILD PAIN (1-3) 11/19/24 10:00 12/19/24 09:59 Atorvastatin Calcium (LIPItor 10MG) 10 mg HS PO 11/20/24 21:00 12/20/24 20:59 Clindamycin HCl/ Dextrose 50 ml @ 100 mls/hr Q8H IV 11/19/24 10:30 11/29/24 10:29 11/20/24 09:02 100 MLS/HR Dextrose/Sodium Chloride 1,000 ml @ 0 mls/hr AD IV 11/19/24 11:00 11/20/24 09:36 DC 11/19/24 14:50 150 MLS/HR Famotidine (Pepcid 20mg Vial) 20 mg BID IV 11/19/24 21:00 12/19/24 20:59 11/20/24 09:02 20 MG Famotidine (Pepcid 20mg Tab) 20 mg Q12H PO 11/19/24 10:00 11/19/24 11:16 DC 11/19/24 10:46 20 MG Hydralazine HCl (APRESOLine 20MG INJ) 5 mg Q6H PRN IV ADMINISTER FOR SBP > 160 11/19/24 10:30 12/19/24 10:29 Insulin Glargine (LANtus 100 UNITS/ML 10 ML VIAL) 8 units HS SQ 11/20/24 21:00 12/20/24 20:59 Insulin Human Regular (humuLIN R 100 UNIT/ML 3ML) INSULIN SLIDING SCAL... ACHS SQ 11/19/24 11:30 11/19/24 10:52 DC Insulin Human Regular (humuLIN R 100 UNIT/ML 3ML) INSULIN SLIDING SCAL... ACHS SQ 11/20/24 11:30 12/20/24 11:29 Insulin Human Regular 100 unit/ Sodium Chloride 101 ml @ 0 mls/hr PROTOCOL IV 11/19/24 11:00 11/20/24 09:36 DC 11/19/24 14:50 0.5 MLS/HR Ketorolac Tromethamine (toRADol) 15 mg Q12H PRN IV MODERATE PAIN (4-6) 11/19/24 10:00 11/20/24 16:00 11/20/24 12:42 15 MG Lactated Ringer's 1,000 ml @ 100 mls/hr Q10H IV 11/19/24 10:00 11/19/24 10:50 DC Magnesium Sulfate 50 ml @ 0 mls/hr PROTOCOL IV 11/19/24 11:00 12/19/24 10:59 Meropenem (Merrem 1gm) 1 gm Q8H IVPB 11/19/24 17:00 11/19/24 22:51 DC 11/19/24 19:49 1 GM Meropenem (Merrem 1gm) 1 gm Q8H IVPB 11/20/24 04:00 11/30/24 03:59 11/20/24 11:33 1 GM Morphine Sulfate (morPHINE 2MG SYG) 2 mg Q4H PRN IVP SEVERE PAIN (7-10) 11/19/24 10:00 11/26/24 09:59 11/19/24 12:42 2 MG Ondansetron HCl (zoFRAN 4MG INJ) 4 mg Q6H PRN IVP NAUSEA/VOMITING 11/19/24 10:00 12/19/24 09:59 11/19/24 12:42 4 MG Pharmacy Profile Note (Pharmacy Communication) 1 each ONCE MISC 11/19/24 10:00 11/19/24 10:18 DC Potassium Chloride/Dextrose/ Sod Cl 1,000 ml @ 0 mls/hr AD IV 11/19/24 11:00 11/20/24 09:36 DC 11/20/24 09:01 150 MLS/HR Potassium Chloride 100 ml @ 0 mls/hr PROTOCOL PRN IV DKA POTASSIUM REPLACEMENT 11/19/24 11:00 12/19/24 10:59 Vancomycin HCl 250 ml @ 125 mls/hr Q12H IV 11/20/24 06:00 11/30/24 05:59 11/20/24 05:54 125 MLS/HR Vancomycin HCl (Vancomycin Protocol) 1 each AD IV 11/19/24 09:00 12/03/24 08:59 DIAGNOSTICS / RADIOLOGY: [ ] ASSESSMENT: Perirectal cellulitis and abscess.,POA , status post incision and drainage on 11/19/2024 Sepsis 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 Continue IV Merrem, IV vancomycin, IV clindamycin Infectious Disease, surgery, urology on board Wound care Case management on board for disposition Continue physical therapy Early euglycemic DKA with a normal anion gap, POA -resolved Uncontrolled type 2 diabetes mellitus, POA History of Farxiga use as outpatient, POA Initial whole blood ketone bodies 2.1 Patient was treated with IV insulin drip for 1 day Farxiga discontinued We will Repeat ketone bodies Consistent carbohydrate diet Endocrinology on board ATTESTATION BY PHYSICIAN I have seen and examined the patient. I reviewed the documentation, medical decision making, and treatment plan as noted by the resident provider above. I agree with the findings and plan of care. BOUBACAR SPEARS MD, MD Nov 20, 2024 14:01
--- NOTE | 2024-11-20 14:30 | NUR ---
TRANSFERRED TO ROOM 418 PER WHEELCHAIR. PT RECEIVED BY [facility] STAFF AT [facility]
--- NOTE | 2024-11-20 15:00 | NUR ---
C Consult: Unable to assess at this time due to dressing done by primary nurse.
--- NOTE | 2024-11-20 16:01 | PN ---
[facility] PROGRESS NOTE Date Patient Seen: Nov 20, 2024 Time of Visit: 15:58 Supervising Physician: Dr. Ellis Primary Care Physician: MORALES MARTE Outpatient Specialists: [ ] Inpatient Consults: [ ] PROBLEM LIST: 1. LEFT PERINEAL ABSCESS CONCERN FOR ADRIANO GANGRENE, POA s/p I and D of perirectal abscess by Dr. Faith on 11/19 2024. 2. DIABETES TYPE 2 UNCONTROLLED, POA 3. SEPSIS DUE TO PERINEAL ABSCESS, POA 4. ACUTE COMPLICATED CYSTITIS, POA 5. LEFT PERINEAL CELLULITIS, POA INTERVAL HISTORY: 11/20/2024: At the time of my evaluation, the patient was lying in bed. He was complaining regarding ringing in the ears that is new. The patient underwent a I and D of perirectal abscess by Dr. Faith on 11/19 2024. Surgical site was benign with bloody dressing. Surgical sampling was sent for culture and Gram stain is showing Gram-positive cocci in clusters, blood cultures showing no growth and urine culture showing no growth. On the monitor, the patient is on room air and is hemodynamically stable. Laboratory data was notable for WBC back to normal range. Chemistry panel showed a lactic acid of 1.6 and was otherwise unremarkable. The patient remains on a insulin drip due to euglycemic DKA which has now corrected with a gap of 7. The patient remains on antibiotic coverage also on Merrem, vancomycin and clindamycin. REVIEW OF SYSTEMS: 12 point ROS reviewed with patient. Pertinent positives mentioned above. Otherwise negative. PHYSICAL EXAM: GENERAL: Alert, weak, awake oriented x 3 HEENT: EOMI, Sclera non icteric, moist mucosa NECK: Supple, no JVD, trachea midline LUNGS: Clear breath sounds bilaterally. No wheezes HEART: Regular rate and rhythm. Normal S1 and S2, without murmurs ABD: Abdomen soft, nontender. Bowel sounds present : Surgical site was benign with bloody dressing. EXT: No clubbing cyanosis or edema NEURO: Alert and oriented to person, follows commands Vital Signs (last 8hr) Date Time Temp Pulse Resp B/P (MAP) Pulse Ox O2 Delivery O2 Flow Rate FiO2 11/20/24 14:35 98.2 78 18 142/63 99 Room Air 21 11/20/24 12:00 96 Room Air* 0 21 11/20/24 12:00 98.2 81 18 112/72 96 11/20/24 11:00 74 30 96 11/20/24 10:00 80 27 128/71 96 Room Air 11/20/24 08:00 95 Room Air* 0 21 11/20/24 08:00 98.1 75 16 100/39 95 Room Air LABS: Hematology Labs: Test 11/20/24 03:52 11/19/24 08:12 Range/Units White Blood Count 10.8 4.8-10.8 K/uL Red Blood Count 4.50 4.50-6.20 MIL/uL Hemoglobin 12.8 L 14.0-18.0 g/dL Hematocrit 39.3 L 42-54 % Mean Corpuscular Volume 87.3 79-99 fL Mean Corpuscular Hemoglobin 28.4 27.0-33.0 pg Mean Corpuscular Hemoglobin Concent 32.6 32.0-36.0 g/dL Red Cell Distribution Width 12.7 11.0-15.5 % Platelet Count 276 130-400 K/uL Mean Platelet Volume 11.1 H 7.5-10.5 fL Immature Granulocyte % (Auto) 0.4 0-1 % Neutrophils (%) (Auto) 64.4 40.0-77.0 % Lymphocytes (%) (Auto) 19.8 L 21.0-51.0 % Monocytes (%) (Auto) 10.6 3.0-13.0 % Eosinophils (%) (Auto) 4.5 0.0-8.0 % Basophils (%) (Auto) 0.3 0.0-5.0 % Neutrophils # (Auto) 7.0 1.8-7.7 K/uL Lymphocytes # (Auto) 2.1 1.0-4.8 K/uL Monocytes # (Auto) 1.1 H 0.1-1.0 K/uL Eosinophils # (Auto) 0.48 0.00-0.70 K/uL Basophils # (Auto) 0.03 0.00-0.20 K/uL Absolute Immature Granulocyte (auto 0.04 0-1 K/uL Nucleated Red Blood Cells 0.0 0.0-0.19 % Erythrocyte Sedimentation Rate 50 H 0-20 MM/HR Chemistry Labs: Test 11/20/24 14:35 11/20/24 13:45 11/20/24 03:52 11/19/24 10:36 Range/Units Whole Blood Glucose 187 H 70-110 MG/DL Whole Blood Ketones Quantitative 2.0 H 0.0-0.6 mmol/L Sodium Level 135 L 136-145 mmol/L Potassium Level 3.5 3.5-5.1 mmol/L Chloride Level 101 101-111 mmol/L Carbon Dioxide Level 27 21-32 mmol/L Blood Urea Nitrogen 7 7-18 mg/dL Creatinine 0.6 0.5-1.3 mg/dL Glomerular Filtration Rate Calc 108 >90 mL/min Random Glucose 146 H 70-105 mg/dL Lactic Acid Level 1.6 0.8-2.5 mmol/L Total Calcium 8.1 L 8.5-10.1 mg/dL Magnesium Level 1.90 1.80-2.40 mg/dL Total Bilirubin 0.9 0.2-1.0 mg/dL Aspartate Amino Transf (AST/SGOT) 26 10-37 U/L Alanine Aminotransferase (ALT/SGPT) 36 # 12-78 U/L Alkaline Phosphatase 142 #H 50-136 U/L Total Protein 6.7 # 6.0-8.3 g/dL Albumin 2.7 #L 3.5-5.0 g/dL Hemoglobin A1c 8.7 H 4.0-6.0 % Estimated Average Glucose (eAG) 203 H 70-126 mg/dL Test 11/19/24 08:12 Range/Units Direct Bilirubin 0.2 0.0-0.3 mg/dL Lactate Dehydrogenase 238 H 81-234 U/L Total Creatine Kinase 61 21-232 U/L Troponin I High Sensitivity 5 4-75 ng/L C-Reactive Protein, Quantitative 78.20 H 0.5-3.0 mg/L Procalcitonin < 0.05 L 0.05-0.5 ng/mL Coagulation Labs: Test 11/19/24 08:12 Range/Units Prothrombin Time 10.8 9.6-11.6 SEC Prothromb Time International Ratio 1.02 0.85-1.15 Activated Partial Thromboplast Time 27.6 26.3-35.5 SEC DIAGNOSTICS / RADIOLOGY RESULTS: [ ] PLAN 11/20/2024: For now, going to continue current management for the patient. Considering gap has closed, I am going to discontinue the insulin drip, start the patient on subQ Lantus and insulin sliding scale. We will start the low carb meal and we will continue to monitor his blood glucose trend. We will continue antibiotic therapy, but considering the complaint of ringing in the ears we may change the vanco and cleaned the to Zyvox and we will continue on Merrem. I am going to repeat surveillance labs in the morning and follow the WBC trend. I am going to downgrade the patient to med surge. We will monitor the patient's progress and response to management. We will continue to provide general supportive care, GI and DVT prophylaxis. Further orders per attending MD and hospital course. NEURO: Minimize central acting medications as possible. Fall Precautions. Well lighted room through the day and minimize interruptions through the night to prevent acute delirium. PULMONARY: Supplemental 02 as needed Titrate Fio2 to keep Spo2 > or = 90% DuoNebs and CPT as needed IS hourly while awake for pulmonary hygiene Out of bed to chair as tolerated VAP Bundle CARDIOVASCULAR: Follow hemodynamics. Titrate vasopressor to keep MAP >65 or systolic blood pressure >95mmHg DIPS: [ ] LINES: [ ] GI & NUTRITION: Continue nutritional support Aspirations precautions Prokinetic agents and laxatives as needed KIDNEYS & ELECTROLYTES: Strict monitoring of intake and output Daily weights Avoid nephrotoxic agents Monitor electrolytes and replace as needed Goal urine output of 30mL/hr or 0.5mL/kg/hr Urine output: [ ] Fluid Balance: [ ] ENDOCRINE: Maintain blood glucose between 100-180 at all times. Insulin sliding scale for blood glucose management INFECTIOUS DISEASE: Trend temperature. Naik-culture if febrile. Micro: [ ] Antibiotics: Vancomycin, Merrem, clindamycin HEMATOLOGY & COAGULATION: Monitor H&H. Keep Hgb > 7 Transfuse 1 unit of PRBC for Hgb < 7 Transfuse 1 pack of platelets of platelets < 20, 000 Watch for any signs and symptoms of bleeding SKIN: Pressure ulcer prevention per facility protocol Rehab: PT/OT Prophylaxis: GI: Famotidine DVT: SCDs Code Status: Full Resuscitation Disposition: Med/Surg Other: Case was discussed and seen with my supervising physician. The above plan was formulated and agreed upon. DIANNA VICK NP Nov 20, 2024 16:00
[2024-11-20] MEDS: ZYVOX 600 MG TAB PO SCH (17:11)
[2024-11-20] MEDS: atorVAStatin 10 MG TABLET PO SCH (21:16)
[2024-11-20] MEDS: INSULIN GLARgine 100 UNITS/ML 10 ML VIAL SQ SCH (21:19)
[2024-11-20] MEDS: hydroMORPHone 0.5 MG SYG (0.5MG/0.5ML) IVP ONE (23:10)
[2024-11-21 06:14] LABS: BASOPHILS # (AUTO) 0.04 K/uL (0.00-0.20); BASOPHILS % (AUTO) 0.5 % (0.0-5.0); EOSINOPHILS # (AUTO) 0.49 K/uL (0.00-0.70); EOSINOPHILS % (AUTO) 6.2 % (0.0-8.0); HEMATOCRIT 39.8 % (42-54); IMMATURE GRANULOCYTE ABSOLUTE 0.02 K/uL (0-1); LYMPHOCYTES % (AUTO) 25.4 % (21.0-51.0); MEAN CORPUSCULAR HEMOGLOBIN 28.5 pg (27.0-33.0); MEAN CORPUSCULAR HGB CONC 32.7 g/dL (32.0-36.0); MEAN CORPUSCULAR VOLUME 87.3 fL (79-99); MONOCYTES # (AUTO) 0.8 K/uL (0.1-1.0); NEUTROPHILS # (AUTO) 4.6 K/uL (1.8-7.7); NEUTROPHILS % (AUTO) 57.6 % (40.0-77.0); PLATELET COUNT (AUTO) 284 K/uL (130-400); RED BLOOD CELL COUNT(AUTO) 4.56 MIL/uL (4.50-6.20); RED CELL DISTRIBUTION WIDTH 12.7 % (11.0-15.5); WHITE BLOOD COUNT (AUTO) 7.9 K/uL (4.8-10.8)
[2024-11-21 06:39] LABS: BILIRUBIN,TOTAL 0.5 mg/dL (0.2-1.0); CREATININE 0.6 mg/dL (0.5-1.3); POTASSIUM 3.4 mmol/L (3.5-5.1); TOTAL PROTEIN, SERUM 7.2 g/dL (6.0-8.3)
[2024-11-21 06:40] LABS: ALBUMIN 2.9 g/dL (3.5-5.0)
[2024-11-21 08:00] VITALS: O2SAT 98
--- NOTE | 2024-11-21 09:57 | NUR ---
PRACTITIONER ROUNDING Nurse practitioner at bedside. Reviewed blood glucose levels and next level of care. Will continue to monitor. Addendum: 11/21/24 at 0958 by VIVEK COLEY RN RN Amended: Links added.
--- NOTE | 2024-11-21 10:29 | PN ---
[facility] PROGRESS NOTE Date Patient Seen: November 21, 2024 Time of Visit: 10:27 Supervising Physician: Dr. Beth Lancaster Primary Care Physician: MORALES MARTE Outpatient Specialists: [ ] Inpatient Consults: [ ] PROBLEM LIST: 1. LEFT PERINEAL ABSCESS CONCERN FOR ADRIANO GANGRENE, POA s/p I and D of perirectal abscess by Dr. Faith on 11/19 2024. 2. DIABETES TYPE 2 UNCONTROLLED, POA 3. SEPSIS DUE TO PERINEAL ABSCESS, POA 4. ACUTE COMPLICATED CYSTITIS, POA 5. LEFT PERINEAL CELLULITIS, POA INTERVAL HISTORY: 11/20/2024: At the time of my evaluation, the patient was lying in bed. He was complaining regarding ringing in the ears that is new. The patient underwent a I and D of perirectal abscess by Dr. Faith on 11/19 2024. Surgical site was benign with bloody dressing. Surgical sampling was sent for culture and Gram stain is showing Gram-positive cocci in clusters, blood cultures showing no growth and urine culture showing no growth. On the monitor, the patient is on room air and is hemodynamically stable. Laboratory data was notable for WBC back to normal range. Chemistry panel showed a lactic acid of 1.6 and was otherwise unremarkable. The patient remains on a insulin drip due to euglycemic DKA which has now corrected with a gap of 7. The patient remains on antibiotic coverage also on Merrem, vancomycin and clindamycin. 11/21/2024: At the time of my evaluation, the patient is lying in bed. Staff nurse reports no acute events overnight. The patient has no new complaint. Vital signs today are hemodynamically stable and the patient remains on room air. Laboratory data today showed no new laboratory data for review. Abscess tissue gram stain showing Gram-positive cocci in clusters and blood cultures x2 are negative. Urine culture showing no growth. No new imaging for review. Currently, the patient remains on wound care and is on antibiotic therapy with p.o. Zyvox and IV Merrem. No other complaint. REVIEW OF SYSTEMS: 12 point ROS reviewed with patient. Pertinent positives mentioned above. Otherwise negative. PHYSICAL EXAM: GENERAL: Alert, weak, awake oriented x 3 HEENT: EOMI, Sclera non icteric, moist mucosa NECK: Supple, no JVD, trachea midline LUNGS: Clear breath sounds bilaterally. No wheezes HEART: Regular rate and rhythm. Normal S1 and S2, without murmurs ABD: Abdomen soft, nontender. Bowel sounds present : Surgical site was benign with bloody dressing. EXT: No clubbing cyanosis or edema NEURO: Alert and oriented to person, follows commands LABS: Hematology Labs: Test 11/20/24 03:52 Range/Units White Blood Count 10.8 4.8-10.8 K/uL Red Blood Count 4.50 4.50-6.20 MIL/uL Hemoglobin 12.8 L 14.0-18.0 g/dL Hematocrit 39.3 L 42-54 % Mean Corpuscular Volume 87.3 79-99 fL Mean Corpuscular Hemoglobin 28.4 27.0-33.0 pg Mean Corpuscular Hemoglobin Concent 32.6 32.0-36.0 g/dL Red Cell Distribution Width 12.7 11.0-15.5 % Platelet Count 276 130-400 K/uL Mean Platelet Volume 11.1 H 7.5-10.5 fL Immature Granulocyte % (Auto) 0.4 0-1 % Neutrophils (%) (Auto) 64.4 40.0-77.0 % Lymphocytes (%) (Auto) 19.8 L 21.0-51.0 % Monocytes (%) (Auto) 10.6 3.0-13.0 % Eosinophils (%) (Auto) 4.5 0.0-8.0 % Basophils (%) (Auto) 0.3 0.0-5.0 % Neutrophils # (Auto) 7.0 1.8-7.7 K/uL Lymphocytes # (Auto) 2.1 1.0-4.8 K/uL Monocytes # (Auto) 1.1 H 0.1-1.0 K/uL Eosinophils # (Auto) 0.48 0.00-0.70 K/uL Basophils # (Auto) 0.03 0.00-0.20 K/uL Absolute Immature Granulocyte (auto 0.04 0-1 K/uL Nucleated Red Blood Cells 0.0 0.0-0.19 % Chemistry Labs: Test 11/21/24 05:18 11/20/24 13:45 11/20/24 03:52 11/19/24 10:36 Range/Units Whole Blood Glucose 91 # 70-110 MG/DL Whole Blood Ketones Quantitative 2.0 H 0.0-0.6 mmol/L Sodium Level 135 L 136-145 mmol/L Potassium Level 3.5 3.5-5.1 mmol/L Chloride Level 101 101-111 mmol/L Carbon Dioxide Level 27 21-32 mmol/L Blood Urea Nitrogen 7 7-18 mg/dL Creatinine 0.6 0.5-1.3 mg/dL Glomerular Filtration Rate Calc 108 >90 mL/min Random Glucose 146 H 70-105 mg/dL Lactic Acid Level 1.6 0.8-2.5 mmol/L Total Calcium 8.1 L 8.5-10.1 mg/dL Magnesium Level 1.90 1.80-2.40 mg/dL Total Bilirubin 0.9 0.2-1.0 mg/dL Aspartate Amino Transf (AST/SGOT) 26 10-37 U/L Alanine Aminotransferase (ALT/SGPT) 36 # 12-78 U/L Alkaline Phosphatase 142 #H 50-136 U/L Total Protein 6.7 # 6.0-8.3 g/dL Albumin 2.7 #L 3.5-5.0 g/dL Hemoglobin A1c 8.7 H 4.0-6.0 % Estimated Average Glucose (eAG) 203 H 70-126 mg/dL DIAGNOSTICS / RADIOLOGY RESULTS: [ ] PLAN 11/21/2024: For now, we are going to continue current management for the patient. Respiratory emerson, the patient is stable and we will continue to monitor him on room air. We are going to continue wound care and antibiotic therapy as ordered. We are going to follow the recommendation of the treating specialist. I am going to request repeat labs for today and we will follow the blood glucose trend. We will continue current management as ordered. Per the patient's report, case management discussed with him regarding senior living facility placement. We will monitor the patient's progress and response to management. We will continue to provide general supportive care, GI and DVT prophylaxis. Further orders per attending MD and hospital course. NEURO: Minimize central acting medications as possible. Maintain fall precautions, adequate lighting during the day PULMONARY: Supplemental 02 as needed. Maintain aspiration precautions at all times CARDIOVASCULAR: Follow hemodynamics. Vital signs per facility protocol GI & NUTRITION: Continue with nutritional support. Continue stool softeners and laxatives as needed. KIDNEYS & ELECTROLYTES: Strict monitoring of intake, output and overall fluid balance. Avoid nephrotoxic medications to the extent possible. Medications to be dosed according to renal function. Monitor electrolytes and replace as needed ENDOCRINE: Maintain blood glucose between 100-180 at all times. Hypoglycemia protocol in place INFECTIOUS DISEASE: Trend temperature, WBC and procalcitonin level Follow cultures, deescalate antibiotics as soon as possible. Panculture if new onset fever ONCOLOGY/HEMATOLOGY/COAGULATION: Monitor for s/s of bleeding Monitor hemoglobin, coagulation studies as needed SKIN: Pressure ulcer prevention per facility protocol Specialty mattress ORTHO/REHAB: Continue PT/OT Prophylaxis: Continue GI and DVT prophylaxis Code Status: Full Resuscitation Disposition: TBD Other: DIANNA VICK NP November 21, 2024 10:29
[2024-11-21 12:00] VITALS: BP 122/66; PULSE 66; RESP 19; TEMP 98.2
--- NOTE | 2024-11-21 12:46 | PN ---
[facility] PROGRESS NOTE Date of Service: November 21, 2024 Time of Service: 12:43 SUBJECTIVE: 64-year-old male with underlying history of hypertension, hyperlipidemia, type 2 diabetes mellitus (maintained on outpatient insulin as well as metformin, [facility]), presented to the ER was sent here by his doctor for further evaluation of left perianal painful swelling ongoing for the past three days. Patient reports having poor oral intake and significant pain which he rates as 7/10 in intensity. Patient reports having previous history of folliculitis involving the scrotum previously. Denies any previous history of abscess requiring incision and drainage. Patient denied any active chest pain, shortness of breath. Last bowel movement was yesterday. On presentation to the hospital, patient was noted to be afebrile with T-max of 98.1 F, heart rate of 97, blood pressure 140/95. [place] [address], hemoglobin of 15, platelet count of 807258.BMP remarkable for sodium of 134, potassium 4.2, creatinine 0.7, blood glucose of 187, lactic acid of 2.2, CRP of 78.20. 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 11.20.24: Patient underwent Incision and drainage of perirectal abscess By Dr Monk on 11.20.24.Pus is sent for culture and sensitivity. Patient is seen lying on his bed. No pain reported. Surgical site dressing with bloody discharge . Patient is on IV Merrem, IV vancomycin, IV clindamycin. Mean time, he was found to have increased ketone bodies, was treated with insulin drip , D5 with half NS for early euglycemic DKA. Downgraded to med surg floor. manager state and physical therapy on board. Pending discharge disposition . 11/21/2024: Patient is status post I and D of perirectal abscess, pod 1. Abscess culture growing Gram-positive cocci in clusters. Infectious Disease on board. Patient being treated with IV Merrem and oral Zyvox. Vancomycin and clindamycin is discontinued. His blood sugars are stable and ketones are down trending. Pending discharge disposition. REVIEW OF SYSTEMS CONSTITUTIONAL: Denies fevers, chills, or night sweats. No unintentional weight loss reported. NEUROLOGICAL: Denies headache, amaurosis fugax, motor weakness, sensory deficit, vertigo/spinning sensation, gait abnormalities, or tremors. ENT: No hearing loss, otalgia, otorrhea, rhinitis, rhinorrhea, hoarseness, or sore throat. CARDIOVASCULAR: Denies any exertional angina, dyspnea on exertion, orthopnea, paroxysmal nocturnal dyspnea, palpitations, life-threatening arrhythmias, claudication. PULMONARY: Denies any shortness of breath, cough, phlegm/sputum, hemoptysis, pleuritic chest pain. SLEEP: Denies morning headaches, daytime somnolence or napping. Denies difficulty falling asleep, staying asleep, waking from sleep. Denies knowledge of snoring. GASTROINTESTINAL: Redness, swelling and induration involving the left perianal region GENITOURINARY: Denies frequency, urgency, nocturia, hematuria or incontinence (Storage/Irritative symptoms.) Low urinary stream, straining to void, urinary intermittency or hesitancy, splitting of the voiding stream, terminal dribbling. ENDOCRINOLOGIC: Denies polyuria, polydipsia, polyphagia or heat/cold intolerances. HEMATOLOGIC: Denies thrombophilia/previous clots, or coagulopathy/bleeding disorders. ONCOLOGIC: Denies personal history of malignancy. DERMATOLOGIC: Denies rashes or pruritus. PSYCHIATRIC: Denies any suicidal or homicidal ideation. Denies hallucinations. PHYSICAL EXAM GENERAL APPEARANCE: The patient is awake, alert, and oriented, in no acute cardiopulmonary distress. NEUROLOGICAL: Cranial nerves II-XII grossly intact. Motor is 5/5 in bilateral upper and lower extremities proximal to distal. No sensory deficits. HEENT: Face is symmetric. Pupils are equal and reactive. Extraocular movements are intact. NECK: Supple. No JVD. No thyromegaly. No submental, submandibular, pre- /postauricular, occipital or supraclavicular lymphadenopathy. CHEST: Normal chest expansion. No Telemetry. LUNGS: Absence of any rales, rhonchi or any wheezing. CARDIOVASCULAR: Regular. S1 and S2 normal. No appreciable rubs, murmurs or gallops. ABDOMEN/ : Erythema, induration, swelling noted of the left perianal region with surrounding erythema noted EXTREMITIES: Non-edematous and not cyanotic. No clubbing. Good capillary refill. Vital Signs (last 8hr) Date Time Temp Pulse Resp B/P (MAP) Pulse Ox O2 Delivery O2 Flow Rate FiO2 11/21/24 12:00 98.2 66 19 122/66 100 Room Air 21 LABS: Laboratory: Test 11/21/24 11:27 11/21/24 06:03 11/20/24 03:52 Range/Units Whole Blood Glucose 137 #H 70-110 MG/DL White Blood Count 7.9 4.8-10.8 K/uL Red Blood Count 4.56 4.50-6.20 MIL/uL Hemoglobin 13.0 L 14.0-18.0 g/dL Hematocrit 39.8 L 42-54 % Mean Corpuscular Volume 87.3 79-99 fL Mean Corpuscular Hemoglobin 28.5 27.0-33.0 pg Mean Corpuscular Hemoglobin Concent 32.7 32.0-36.0 g/dL Red Cell Distribution Width 12.7 11.0-15.5 % Platelet Count 284 130-400 K/uL Mean Platelet Volume 10.9 H 7.5-10.5 fL Immature Granulocyte % (Auto) 0.3 0-1 % Neutrophils (%) (Auto) 57.6 40.0-77.0 % Lymphocytes (%) (Auto) 25.4 21.0-51.0 % Monocytes (%) (Auto) 10.0 3.0-13.0 % Eosinophils (%) (Auto) 6.2 0.0-8.0 % Basophils (%) (Auto) 0.5 0.0-5.0 % Neutrophils # (Auto) 4.6 1.8-7.7 K/uL Lymphocytes # (Auto) 2.0 1.0-4.8 K/uL Monocytes # (Auto) 0.8 0.1-1.0 K/uL Eosinophils # (Auto) 0.49 0.00-0.70 K/uL Basophils # (Auto) 0.04 0.00-0.20 K/uL Absolute Immature Granulocyte (auto 0.02 0-1 K/uL Nucleated Red Blood Cells 0.0 0.0-0.19 % Sodium Level 139 136-145 mmol/L Potassium Level 3.4 L 3.5-5.1 mmol/L Chloride Level 103 101-111 mmol/L Carbon Dioxide Level 26 21-32 mmol/L Blood Urea Nitrogen 12 7-18 mg/dL Creatinine 0.6 0.5-1.3 mg/dL Glomerular Filtration Rate Calc 108 >90 mL/min Random Glucose 95 70-105 mg/dL Whole Blood Ketones Quantitative 1.3 H 0.0-0.6 mmol/L Total Calcium 8.8 8.5-10.1 mg/dL Total Bilirubin 0.5 0.2-1.0 mg/dL Aspartate Amino Transf (AST/SGOT) 33 10-37 U/L Alanine Aminotransferase (ALT/SGPT) 39 12-78 U/L Alkaline Phosphatase 208 H 50-136 U/L C-Reactive Protein, Quantitative 53.20 H 0.5-3.0 mg/L Total Protein 7.2 6.0-8.3 g/dL Albumin 2.9 L 3.5-5.0 g/dL Lactic Acid Level 1.6 0.8-2.5 mmol/L Magnesium Level 1.90 1.80-2.40 mg/dL Current Medications Medications (Trade) Dose Ordered Sig/Shanda Route PRN Reason Start Time Stop Time Status Last Admin Dose Admin Acetaminophen (TYLenol 325MG TAB) 650 mg Q6H PRN PO MILD PAIN (1-3) 11/19/24 10:00 12/19/24 09:59 Atorvastatin Calcium (LIPItor 10MG) 10 mg HS PO 11/20/24 21:00 12/20/24 20:59 11/20/24 21:16 10 MG Clindamycin HCl/ Dextrose 50 ml @ 100 mls/hr Q8H IV 11/19/24 10:30 11/20/24 16:32 DC 11/20/24 09:02 100 MLS/HR Dextrose/Sodium Chloride 1,000 ml @ 0 mls/hr AD IV 11/19/24 11:00 11/20/24 09:36 DC 11/19/24 14:50 150 MLS/HR Famotidine (Pepcid 20mg Vial) 20 mg BID IV 11/19/24 21:00 12/19/24 20:59 11/21/24 10:56 20 MG Famotidine (Pepcid 20mg Tab) 20 mg Q12H PO 11/19/24 10:00 11/19/24 11:16 DC 11/19/24 10:46 20 MG Hydralazine HCl (APRESOLine 20MG INJ) 5 mg Q6H PRN IV ADMINISTER FOR SBP > 160 11/19/24 10:30 12/19/24 10:29 Insulin Glargine (LANtus 100 UNITS/ML 10 ML VIAL) 8 units HS SQ 11/20/24 21:00 12/20/24 20:59 11/20/24 21:19 8 UNITS Insulin Human Regular (humuLIN R 100 UNIT/ML 3ML) INSULIN SLIDING SCAL... ACHS SQ 11/19/24 11:30 11/19/24 10:52 DC Insulin Human Regular (humuLIN R 100 UNIT/ML 3ML) INSULIN SLIDING SCAL... ACHS SQ 11/20/24 11:30 12/20/24 11:29 11/20/24 21:18 2 UNIT Insulin Human Regular 100 unit/ Sodium Chloride 101 ml @ 0 mls/hr PROTOCOL IV 11/19/24 11:00 11/20/24 09:36 DC 11/19/24 14:50 0.5 MLS/HR Ketorolac Tromethamine (toRADol) 15 mg Q12H PRN IV MODERATE PAIN (4-6) 11/19/24 10:00 11/20/24 16:00 DC 11/20/24 12:42 15 MG Lactated Ringer's 1,000 ml @ 100 mls/hr Q10H IV 11/19/24 10:00 11/19/24 10:50 DC Linezolid (Zyvox) 600 mg Q12H PO 11/20/24 16:30 11/30/24 16:29 11/20/24 17:11 600 MG Magnesium Sulfate 50 ml @ 0 mls/hr PROTOCOL IV 11/19/24 11:00 12/19/24 10:59 Meropenem (Merrem 1gm) 1 gm Q8H IVPB 11/19/24 17:00 11/19/24 22:51 DC 11/19/24 19:49 1 GM Meropenem (Merrem 1gm) 1 gm Q8H IVPB 11/20/24 04:00 11/30/24 03:59 11/20/24 21:16 1 GM Morphine Sulfate (morPHINE 2MG SYG) 2 mg Q4H PRN IVP SEVERE PAIN (7-10) 11/19/24 10:00 11/26/24 09:59 11/19/24 12:42 2 MG Ondansetron HCl (zoFRAN 4MG INJ) 4 mg Q6H PRN IVP NAUSEA/VOMITING 11/19/24 10:00 12/19/24 09:59 11/19/24 12:42 4 MG Pharmacy Profile Note (Pharmacy Communication) 1 each ONCE MISC 11/19/24 10:00 11/19/24 10:18 DC Potassium Chloride/Dextrose/ Sod Cl 1,000 ml @ 0 mls/hr AD IV 11/19/24 11:00 11/20/24 09:36 DC 11/20/24 09:01 150 MLS/HR Potassium Chloride 100 ml @ 0 mls/hr PROTOCOL PRN IV DKA POTASSIUM REPLACEMENT 11/19/24 11:00 12/19/24 10:59 Vancomycin HCl 250 ml @ 125 mls/hr Q12H IV 11/20/24 06:00 11/20/24 16:32 DC 11/20/24 05:54 125 MLS/HR Vancomycin HCl (Vancomycin Protocol) 1 each AD IV 11/19/24 09:00 11/20/24 16:32 DC DIAGNOSTICS / RADIOLOGY: [ ] ASSESSMENT: Perirectal cellulitis and abscess.,POA , status post incision and drainage on 11/19/2024 Sepsis 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 Continue IV Merrem, ZYVOX Infectious Disease, surgery, urology on board Wound care Case management on board for disposition Continue physical therapy Early euglycemic DKA with a normal anion gap, POA -resolved Uncontrolled type 2 diabetes mellitus, POA History of Farxiga use as outpatient, POA Initial whole blood ketone bodies 2.1 Patient was treated with IV insulin drip for 1 day Farxiga discontinued We will Repeat ketone bodies Consistent carbohydrate diet Endocrinology on board ATTESTATION BY PHYSICIAN I have seen and examined the patient. I reviewed the documentation, medical decision making, and treatment plan as noted by the resident provider above. I agree with the findings and plan of care. BOUBACAR SPEARS MD, MD November 21, 2024 12:46
--- NOTE | 2024-11-21 12:53 | PN ---
INFECTIOUS DISEASE PROGRESS NOTE Date of Service: November 21, 2024 SUBJECTIVE: This is a 64-year-old male patient who is status post incision and drainage of a perianal abscess on 11/19/2024. Patient is awake alert and oriented x3. Patient ambulates with no difficulty. No fever, temperature 98.2 and a WBC of 7.9. The preliminary perineal abscess cultures results is growing coagulase-negative Staphylococcus. We will continue to follow up on the final culture results. Will continue on vancomycin, clindamycin and Meropenem. Patient has been referred to [facility] and pending insurance approval. PHYSICAL EXAM EYES: Anicteric. Pupils equal and reactive. HENT: No oral thrush seen, moist Oral mucosa. NECK: Supple, no JVD or thyromegaly. LUNGS: Good air entry. No rales, no rhonchi. CARDIOVASCULAR: S1, S2 regular. No murmur heard. ABDOMEN: Soft, non tender, bowel sounds pre sent, no organomegaly. CENTRAL NERVOUS SYSTEM: Awake, alert, oriented x 3. SKIN: No rashes, no swelling. LYMPHATICS: No peripheral lymphadenopathy. MUSCULOSKELETAL: No joint swelling, erythema or tenderness. EXTREMITIES: No cyanosis or clubbing. BACK: No deformity, no pressure ulcer. RECTUM: Perineal abscess, s/p I&D. GENITOURINARY: No dysuria or hematuria. Vital Sign (Last 12 Hours) 11/21/24 12:00 Temp 98.2 Pulse 66 Resp 19 B/P (MAP) 122/66 Pulse Ox 100 O2 Delivery Room Air FiO2 21 Intake & Output (last 24hrs) 11/20/24 11/20/24 11/21/24 14:59 22:59 06:59 Intake Total 1560.8 ml Output Total 1800 ml Balance -239.2 ml LABS: Laboratory: Test 11/21/24 11:27 11/21/24 06:03 11/20/24 03:52 Range/Units Whole Blood Glucose 137 #H 70-110 MG/DL White Blood Count 7.9 4.8-10.8 K/uL Red Blood Count 4.56 4.50-6.20 MIL/uL Hemoglobin 13.0 L 14.0-18.0 g/dL Hematocrit 39.8 L 42-54 % Mean Corpuscular Volume 87.3 79-99 fL Mean Corpuscular Hemoglobin 28.5 27.0-33.0 pg Mean Corpuscular Hemoglobin Concent 32.7 32.0-36.0 g/dL Red Cell Distribution Width 12.7 11.0-15.5 % Platelet Count 284 130-400 K/uL Mean Platelet Volume 10.9 H 7.5-10.5 fL Immature Granulocyte % (Auto) 0.3 0-1 % Neutrophils (%) (Auto) 57.6 40.0-77.0 % Lymphocytes (%) (Auto) 25.4 21.0-51.0 % Monocytes (%) (Auto) 10.0 3.0-13.0 % Eosinophils (%) (Auto) 6.2 0.0-8.0 % Basophils (%) (Auto) 0.5 0.0-5.0 % Neutrophils # (Auto) 4.6 1.8-7.7 K/uL Lymphocytes # (Auto) 2.0 1.0-4.8 K/uL Monocytes # (Auto) 0.8 0.1-1.0 K/uL Eosinophils # (Auto) 0.49 0.00-0.70 K/uL Basophils # (Auto) 0.04 0.00-0.20 K/uL Absolute Immature Granulocyte (auto 0.02 0-1 K/uL Nucleated Red Blood Cells 0.0 0.0-0.19 % Sodium Level 139 136-145 mmol/L Potassium Level 3.4 L 3.5-5.1 mmol/L Chloride Level 103 101-111 mmol/L Carbon Dioxide Level 26 21-32 mmol/L Blood Urea Nitrogen 12 7-18 mg/dL Creatinine 0.6 0.5-1.3 mg/dL Glomerular Filtration Rate Calc 108 >90 mL/min Random Glucose 95 70-105 mg/dL Whole Blood Ketones Quantitative 1.3 H 0.0-0.6 mmol/L Total Calcium 8.8 8.5-10.1 mg/dL Total Bilirubin 0.5 0.2-1.0 mg/dL Aspartate Amino Transf (AST/SGOT) 33 10-37 U/L Alanine Aminotransferase (ALT/SGPT) 39 12-78 U/L Alkaline Phosphatase 208 H 50-136 U/L C-Reactive Protein, Quantitative 53.20 H 0.5-3.0 mg/L Total Protein 7.2 6.0-8.3 g/dL Albumin 2.9 L 3.5-5.0 g/dL Lactic Acid Level 1.6 0.8-2.5 mmol/L Magnesium Level 1.90 1.80-2.40 mg/dL ASSESSMENT: Perineal abscess, s/p incision and drainage on 11/19/2024. 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 Sepsis. Leukocytosis. Diabetic ketoacidosis. Hypertension. PLAN: Continue vancomycin per pharmacy protocol. Continue Meropenem. Continue clindamycin. Continue pain management. Continue wound care. Continue antidiabetic. Continue antihypertensive. Will monitor electrolyte. We will follow up on the final culture results. Case management evaluation for referral to [facility] This case was reviewed and discussed with my supervising physician and the above assessment and plan was formulated and agreed upon. ATTESTATION BY PHYSICIAN I have seen and examined the patient. I reviewed the documentation, medical decision making, and treatment plan as noted by the mid-level provider above. I agree with the findings and plan of care. MARIAH PARRA MD, MIRTA L [employer] DIRECT[employer] November 21, 2024 12:53
--- NOTE | 2024-11-21 14:14 | NUR ---
[facility] Follow-up: Patient re-assessed by wound healing team. See wound assessment. Assessment and recommendations provided to primary nurse. Education provided. Wound care done. Addendum: 11/22/24 at 1159 by BRUCE FABIAN RN RN/ Amended: Links added.
--- NOTE | 2024-11-21 14:16 | PN ---
GENERAL SURGERY PROGRESS NOTE DATE OF SERVICE: November 21, 2024 TIME OF SERVICE: 14:15 PROBLEM LISTS: [ ] INTERVAL HISTORY: [ ] PHYSICAL EXAMINATION: GENERAL: [Patient is lying comfortably in bed, not in any obvious distress.] HEAD: [Normal with no signs of head trauma.] EYES: [Not pale not jaundiced afebrile to touch.] ENT: [ Normal.] NECK: [Supple,no tenderness,no lymphadenopathy,no masses,no thyromegaly ,no bruits, no JVD.] LUNGS: [Clear breath sounds bilaterally. No wheezes, rales, or rhonchi.] HEART: [Regular rate and rhythm. Normal S1 and S2, without murmurs, rub or gallop.] ABD: [Benign WA had indurated tender area perianal region erythematous Scrotum with skin lesions like hidradenitis : [Normal, no suprapubic tenderness.] LYMPH: [No lymphadenopathy noted.] EXT: [ Warm soft, non tender.] SKIN: [ No rashes or lesions.] NEURO: [ Awake Alert and oriented x3.] LABORATORY: [ ] Hematology Labs: Test 11/21/24 06:03 Range/Units White Blood Count 7.9 4.8-10.8 K/uL Red Blood Count 4.56 4.50-6.20 MIL/uL Hemoglobin 13.0 L 14.0-18.0 g/dL Hematocrit 39.8 L 42-54 % Mean Corpuscular Volume 87.3 79-99 fL Mean Corpuscular Hemoglobin 28.5 27.0-33.0 pg Mean Corpuscular Hemoglobin Concent 32.7 32.0-36.0 g/dL Red Cell Distribution Width 12.7 11.0-15.5 % Platelet Count 284 130-400 K/uL Mean Platelet Volume 10.9 H 7.5-10.5 fL Immature Granulocyte % (Auto) 0.3 0-1 % Neutrophils (%) (Auto) 57.6 40.0-77.0 % Lymphocytes (%) (Auto) 25.4 21.0-51.0 % Monocytes (%) (Auto) 10.0 3.0-13.0 % Eosinophils (%) (Auto) 6.2 0.0-8.0 % Basophils (%) (Auto) 0.5 0.0-5.0 % Neutrophils # (Auto) 4.6 1.8-7.7 K/uL Lymphocytes # (Auto) 2.0 1.0-4.8 K/uL Monocytes # (Auto) 0.8 0.1-1.0 K/uL Eosinophils # (Auto) 0.49 0.00-0.70 K/uL Basophils # (Auto) 0.04 0.00-0.20 K/uL Absolute Immature Granulocyte (auto 0.02 0-1 K/uL Nucleated Red Blood Cells 0.0 0.0-0.19 % Chemistry Labs: Test 11/21/24 11:27 11/21/24 06:03 11/20/24 03:52 Range/Units Whole Blood Glucose 137 #H 70-110 MG/DL Sodium Level 139 136-145 mmol/L Potassium Level 3.4 L 3.5-5.1 mmol/L Chloride Level 103 101-111 mmol/L Carbon Dioxide Level 26 21-32 mmol/L Blood Urea Nitrogen 12 7-18 mg/dL Creatinine 0.6 0.5-1.3 mg/dL Glomerular Filtration Rate Calc 108 >90 mL/min Random Glucose 95 70-105 mg/dL Whole Blood Ketones Quantitative 1.3 H 0.0-0.6 mmol/L Total Calcium 8.8 8.5-10.1 mg/dL Total Bilirubin 0.5 0.2-1.0 mg/dL Aspartate Amino Transf (AST/SGOT) 33 10-37 U/L Alanine Aminotransferase (ALT/SGPT) 39 12-78 U/L Alkaline Phosphatase 208 H 50-136 U/L C-Reactive Protein, Quantitative 53.20 H 0.5-3.0 mg/L Total Protein 7.2 6.0-8.3 g/dL Albumin 2.9 L 3.5-5.0 g/dL Lactic Acid Level 1.6 0.8-2.5 mmol/L Magnesium Level 1.90 1.80-2.40 mg/dL DIAGNOSTICS / RADIOLOGY: [Copy/Paste Echos/Imaging Report here] ASSESSMENT: [] Perianal cellulitis with abscess PLAN: [] NPO/IVF/IV ANTIOBIOTICS Schedule for OR We talked about various treatment options including but not limited to surgery. We talked about risks and benefits of surgery, patient verbalized understanding has agreed to proceed [ ]. We will schedule [incision and drainage perianal abscess ]. FORTUNATO MARLOW MD November 21, 2024 14:16
[2024-11-21] MEDS ORDERED: HYDROcodone/APAP 5/325 1 TAB TABLET PO PRN (14:30)
[2024-11-21 16:00] VITALS: BP 127/73; PULSE 77; RESP 18; TEMP 98.2
--- NOTE | 2024-11-21 17:00 | NUR ---
SHIFT NOTE Patient continues on IV antibiotics status post I & D of perianal abscess. Wound care performed as ordered. Patient ambulatory on unit throughout the day. Anxious about next level of care. Case management referral to [facility] and visit performed by traveling representative this afternoon. Will continue to monitor and anticipate transfer if accepted and criteria met.
[2024-11-21 20:00] VITALS: BP 114/53; PULSE 71; RESP 18; TEMP 97.8
--- NOTE | 2024-11-21 21:49 | PN ---
endocrinology progress note Date of Service: 11/21/2024 subjective: glucose are stable and controlled. 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 Patient was also noted to have bilateral hydroceles involving with right scrotal wall thickening. he was treated with insulin drip for early mild euglycemic DKA and glucose less than 250 mg/dl. off insulin drip. ketones was elevated but bicarb was normal. hba1c 8.7% REVIEW OF SYSTEMS CONSTITUTIONAL: Denies fevers, chills, or night sweats. No unintentional weight loss reported. NEUROLOGICAL: Denies headache, amaurosis fugax, motor weakness, sensory deficit, vertigo/spinning sensation, gait abnormalities, or tremors. ENT: No hearing loss, otalgia, otorrhea, rhinitis, rhinorrhea, hoarseness, or sore throat. CARDIOVASCULAR: Denies any exertional angina, dyspnea on exertion, orthopnea, paroxysmal nocturnal dyspnea, palpitations, life-threatening arrhythmias, claudication. PULMONARY: Denies any shortness of breath, cough, phlegm/sputum, hemoptysis, pleuritic chest pain. SLEEP: Denies morning headaches, daytime somnolence or napping. Denies difficulty falling asleep, staying asleep, waking from sleep. Denies knowledge of snoring. GENITOURINARY: Denies frequency, urgency, nocturia, hematuria or incontinence (Storage/Irritative symptoms.) Low urinary stream, straining to void, urinary intermittency or hesitancy, splitting of the voiding stream, terminal dribbling. ENDOCRINOLOGIC: Denies polyuria, polydipsia, polyphagia or heat/cold intolerances. HEMATOLOGIC: Denies thrombophilia/previous clots, or coagulopathy/bleeding disorders. ONCOLOGIC: Denies personal history of malignancy. DERMATOLOGIC: Denies rashes or pruritus. PSYCHIATRIC: Denies any suicidal or homicidal ideation. Denies hallucinations. PAST MEDICAL HISTORY: Hypertension, hyperlipidemia, type 2 diabetes mellitus maintained on outpatient insulin, metformin, Farxiga PAST SURGICAL HISTORY: Patient has a history of operative fixation of the right femur after he sustained a fall from ladder [facility] PAST SOCIAL HISTORY: Patient denies active smoking or alcohol consumption FAMILY HISTORY: Denies pertinent family history Allergies: No known drug allergies Medications: Patient is on outpatient lisinopril 5 mg daily, Metformin 850 mg daily, atorvastatin 10 mg daily, Farxiga 5 mg daily, Humulin/Novolin NPH 16 units twice daily Coded Allergies: No Known Drug Allergies (Unverified Allergy, Unknown, 11/19/24) DIAGNOSTICS / RADIOLOGY: SERVICE 0839 REASON: testicular abscess rule our forneirs ORDERING PHYSICIAN: PARAMJIT HOOK MD PROCEDURE: ABD PEL W - CT ABDOMEN/PELVIS W/CONTRAST CT ABDOMEN/PELVIS W/CONTRAST HISTORY: Testicular abscess COMPARISON: None TECHNIQUE: Multiple sequential axial images of the abdomen and pelvis were obtained from the dome of the diaphragm through symphysis pubis. Patient was given 75 cc of Omnipaque through intravenous route. Oral contrast was not given. FINDINGS: No pleural effusion is seen bilaterally. There is no evidence of parenchymal disease or pulmonary nodule of the visualized lower lungs. Degenerative changes of the thoracolumbar spine are present. The heart is not enlarged. Liver measures 16 cm. Postcholecystectomy changes are seen. The liver, spleen, adrenal glands and pancreas are unremarkable. There is no evidence of hydronephrosis bilaterally. No evidence of renal stone is seen. Fecal material is seen in the colon. There are normal size retroperitoneal and mesenteric lymph nodes. No ascites is seen. Mild atherosclerotic changes are seen. No CT evidence of acute appendicitis is seen. There is fluid-filled structure measuring 3.3 x 2.1 cm near the left perianal region suggestive of abscess. 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 There may be bilateral hydroceles with left more than right with scrotal wall thickening. Pelvic sidewalls are symmetric bilaterally. Bladder is well distended without wall thickening. IMPRESSION: 1. There is fluid-filled structure measuring 3.3 x 2.1 cm near the left perianal region suggestive of abscess. 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 There may be bilateral hydroceles with left more than right with scrotal wall thickening. CT was performed with one or more following dose reduction techniques: automated exposure control, adjustment of the mA and kv according to patient's size, or use of a iterative reconstruction technique. DICTATED BY: LAKEISHA BUCIO MD DATE: 11/19/24909 ELECTRONICALLY SIGNED BY: LAKEISHA BUCIO MD DATE: 11/19/24914 ASSESSMENT: possible euglycemic DKA, POA resolved he was treated with insulin drip for early mild euglycemic DKA and glucose less than 250 mg/dl. off insulin drip. ketones was elevated but bicarb was normal. hba1c 8.7% off insulin drip. 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 patient can resume insulin and metformin at discharge. he can follow with me in clinic in 1 week. Vitals/Labs Vital Signs Date Time Temp Pulse Resp B/P (MAP) Pulse Ox O2 Delivery O2 Flow Rate FiO2 11/21/24 20:00 97.9 71 18 114/53 100 Room Air 11/21/24 16:00 21 11/21/24 08:00 0 Laboratory Tests 11/21/24 06:03 Medications Current Medications Vancomycin HCl 1 each AD IV; Start 11/19/24 at 09:00; Stop 11/20/24 at 16:32; Status DC Vancomycin HCl 1 gm ONCE ONCE IV; Start 11/19/24 at 09:00; Stop 11/19/24 at 09:32; Status DC Piperacillin Sod/ Tazobactam Sod 3.375 gm ONCE ONCE IV Last administered on 11/19/24at 09:32; Start 11/19/24 at 09:00; Stop 11/19/24 at 09:26; Status DC Iohexol 75 ml STK-MED ONCE IV; Start 11/19/24 at 08:45; Stop 11/19/24 at 08:45; Status DC Vancomycin HCl 250 ml @ 125 mls/hr ONCE ONCE IV Last administered on 11/19/24at 14:51; Start 11/19/24 at 14:00; Stop 11/19/24 at 15:59; Status DC Vancomycin HCl 250 ml @ 125 mls/hr Q12H IV Last administered on 11/20/24at 05:54; Start 11/20/24 at 06:00; Stop 11/20/24 at 16:32; Status DC Lactated Ringer's 1,000 ml @ 100 mls/hr Q10H IV; Start 11/19/24 at 10:00; Stop 11/19/24 at 10:50; Status DC Insulin Human Regular INSULIN SLIDING SCAL... ACHS SQ; Start 11/19/24 at 11:30; Stop 11/19/24 at 10:52; Status DC Pharmacy Profile Note 1 each ONCE MISC; Start 11/19/24 at 10:00; Stop 11/19/24 at 10:18; Status DC Famotidine 20 mg Q12H PO Last administered on 11/19/24at 10:46; Start 11/19/24 at 10:00; Stop 11/19/24 at 11:16; Status DC Acetaminophen 650 mg Q6H PRN PO; Start 11/19/24 at 10:00; Stop 12/19/24 at 09:59 Ondansetron HCl 4 mg Q6H PRN IVP Last administered on 11/19/24at 12:42; Start 11/19/24 at 10:00; Stop 12/19/24 at 09:59 Ketorolac Tromethamine 15 mg Q12H PRN IV Last administered on 11/20/24at 12:42; Start 11/19/24 at 10:00; Stop 11/20/24 at 16:00; Status DC Morphine Sulfate 2 mg Q4H PRN IVP Last administered on 11/21/24at 14:01; Start 11/19/24 at 10:00; Stop 11/21/24 at 14:24; Status DC Clindamycin HCl/ Dextrose 50 ml @ 100 mls/hr Q8H IV Last administered on 11/20/24at 09:02; Start 11/19/24 at 10:30; Stop 11/20/24 at 16:32; Status DC Hydralazine HCl 5 mg Q6H PRN IV; Start 11/19/24 at 10:30; Stop 12/19/24 at 10:29 Meropenem 1 gm Q8H IVPB Last administered on 11/19/24at 19:49; Start 11/19/24 at 17:00; Stop 11/19/24 at 22:51; Status DC Sodium Chloride 2,124 ml @ 708 mls/hr ONCE ONCE IV Last administered on 11/19/24at 11:03; Start 11/19/24 at 11:00; Stop 11/19/24 at 13:59; Status DC Potassium Chloride/Dextrose/ Sod Cl 1,000 ml @ 0 mls/hr AD IV Last administered on 11/20/24at 09:01; Start 11/19/24 at 11:00; Stop 11/20/24 at 09:36; Status DC Potassium Chloride 100 ml @ 0 mls/hr PROTOCOL PRN IV; Start 11/19/24 at 11:00; Stop 12/19/24 at 10:59 Magnesium Sulfate 50 ml @ 0 mls/hr PROTOCOL IV; Start 11/19/24 at 11:00; Stop 12/19/24 at 10:59 Insulin Human Regular 100 unit/ Sodium Chloride 101 ml @ 0 mls/hr PROTOCOL IV Last administered on 11/19/24at 14:50; Start 11/19/24 at 11:00; Stop 11/20/24 at 09:36; Status DC Dextrose/Sodium Chloride 1,000 ml @ 0 mls/hr AD IV Last administered on 11/19/24at 14:50; Start 11/19/24 at 11:00; Stop 11/20/24 at 09:36; Status DC Famotidine 20 mg BID IV Last administered on 11/21/24at 21:34; Start 11/19/24 at 21:00; Stop 12/19/24 at 20:59 Midazolam HCl 2 mg STK-MED ONCE .ROUTE; Start 11/19/24 at 15:32; Stop 11/19/24 at 15:37; Status DC Propofol 200 mg STK-MED ONCE IV; Start 11/19/24 at 15:32; Stop 11/19/24 at 15:37; Status DC Fentanyl Citrate 100 mcg STK-MED ONCE .ROUTE; Start 11/19/24 at 15:33; Stop 11/19/24 at 15:37; Status DC Lidocaine HCl 20 ml STK-MED ONCE .ROUTE; Start 11/19/24 at 15:37; Stop 11/19/24 at 15:38; Status DC Cefazolin Sodium 1 gm STK-MED ONCE .ROUTE; Start 11/19/24 at 15:37; Stop 11/19/24 at 15:38; Status DC Bupivacaine HCl 2.5 mg STK-MED ONCE IJ; Start 11/19/24 at 15:37; Stop 11/19/24 at 15:38; Status DC Succinylcholine Chloride 200 mg STK-MED ONCE .ROUTE; Start 11/19/24 at 15:42; Stop 11/19/24 at 15:42; Status DC Rocuronium [place] 50 mg STK-MED ONCE .ROUTE; Start 11/19/24 at 15:42; Stop 11/19/24 at 15:42; Status DC Ketamine HCl 50 mg STK-MED ONCE .ROUTE; Start 11/19/24 at 15:49; Stop 11/19/24 at 15:50; Status DC Lidocaine HCl 20 ml STK-MED ONCE INJ Last administered on 11/19/24at 15:56; Start 11/19/24 at 15:56; Stop 11/19/24 at 16:46; Status DC Bupivacaine HCl 50 mg STK-MED ONCE IJ Last administered on 11/19/24at 15:56; Start 11/19/24 at 15:56; Stop 11/19/24 at 16:46; Status DC Cefazolin Sodium 1 gm STK-MED ONCE IRRIG Last administered on 11/19/24at 15:56; Start 11/19/24 at 15:56; Stop 11/19/24 at 16:46; Status DC Meropenem 1 gm Q8H IVPB Last administered on 11/21/24at 21:34; Start 11/20/24 at 04:00; Stop 11/30/24 at 03:59 Insulin Glargine 8 units HS SQ Last administered on 11/21/24at 21:36; Start 11/20/24 at 21:00; Stop 12/20/24 at 20:59 Insulin Human Regular INSULIN SLIDING SCAL... ACHS SQ Last administered on 11/21/24at 21:36; Start 11/20/24 at 11:30; Stop 12/20/24 at 11:29 Atorvastatin Calcium 10 mg HS PO Last administered on 11/21/24at 21:34; Start 11/20/24 at 21:00; Stop 12/20/24 at 20:59 Linezolid 600 mg Q12H PO Last administered on 11/21/24at 17:08; Start 11/20/24 at 16:30; Stop 11/30/24 at 16:29 Hydromorphone HCl 0.5 mg ONCE ONCE IVP Last administered on 11/20/24at 23:10; Start 11/20/24 at 22:00; Stop 11/20/24 at 22:01; Status DC Acetaminophen/ Hydrocodone Bitart 1 tab Q6H PRN PO; Start 11/21/24 at 14:30; Stop 11/26/24 at 14:29 LAUREN MOMIN MD November 21, 2024 21:49
[2024-11-22] VITALS (7 sets, daily range): BP systolic 115–134; BP diastolic 47–79; PULSE 63–73; RESP 18; TEMP 97.7–98.6; O2SAT 96–99
[2024-11-22 05:20] LABS: BASOPHILS # (AUTO) 0.04 K/uL (0.00-0.20); BASOPHILS % (AUTO) 0.6 % (0.0-5.0); EOSINOPHILS # (AUTO) 0.52 K/uL (0.00-0.70); EOSINOPHILS % (AUTO) 8.2 % (0.0-8.0); HEMATOCRIT 39.5 % (42-54); IMMATURE GRANULOCYTE ABSOLUTE 0.02 K/uL (0-1); LYMPHOCYTES # (AUTO) 2.2 K/uL (1.0-4.8); MEAN CORPUSCULAR HEMOGLOBIN 28.6 pg (27.0-33.0); MEAN CORPUSCULAR HGB CONC 32.9 g/dL (32.0-36.0); MEAN CORPUSCULAR VOLUME 86.8 fL (79-99); MONOCYTES # (AUTO) 0.5 K/uL (0.1-1.0); MONOCYTES % (AUTO) 8.5 % (3.0-13.0); NEUTROPHILS # (AUTO) 3.1 K/uL (1.8-7.7); NEUTROPHILS % (AUTO) 48.4 % (40.0-77.0); PLATELET COUNT (AUTO) 299 K/uL (130-400); RED BLOOD CELL COUNT(AUTO) 4.55 MIL/uL (4.50-6.20); RED CELL DISTRIBUTION WIDTH 12.6 % (11.0-15.5); WHITE BLOOD COUNT (AUTO) 6.3 K/uL (4.8-10.8)
[2024-11-22 05:38] LABS: ALBUMIN 2.8 g/dL (3.5-5.0); BILIRUBIN,TOTAL 0.4 mg/dL (0.2-1.0); CREATININE 0.6 mg/dL (0.5-1.3); POTASSIUM 3.3 mmol/L (3.5-5.1)
[2024-11-22] MEDS ORDERED: PoTASSium chl 10% ELIXIR 20MEQ 20 MEQ/15 ML UDCUP PO PRN (06:00)
[2024-11-22] MEDS: PoTASSium chloRIDE 20MEQ ER 20 MEQ ERTAB PO PRN (06:20)
--- NOTE | 2024-11-22 08:19 | NUR ---
POTASSIUM = 3.3 Dose 2/3 administered per protocol.
--- NOTE | 2024-11-22 11:07 | PN ---
[facility] PROGRESS NOTE Date Patient Seen: November 22, 2024 Time of Visit: 11:07 Supervising Physician: [Dr. Ji] Primary Care Physician: MORALES MARTE Outpatient Specialists: [ ] Inpatient Consults: [ ] PROBLEM LIST: 1. LEFT PERINEAL ABSCESS CONCERN FOR ADRIANO GANGRENE, POA s/p I and D of perirectal abscess by Dr. Faith on 11/19 2024. 2. DIABETES TYPE 2 UNCONTROLLED, POA 3. SEPSIS DUE TO PERINEAL ABSCESS, POA, resolved 4. ACUTE COMPLICATED CYSTITIS, POA, resolved 5. LEFT PERINEAL CELLULITIS, POA INTERVAL HISTORY: 11/20/2024: At the time of my evaluation, the patient was lying in bed. He was complaining regarding ringing in the ears that is new. The patient underwent a I and D of perirectal abscess by Dr. Faith on 11/19 2024. Surgical site was benign with bloody dressing. Surgical sampling was sent for culture and Gram stain is showing Gram-positive cocci in clusters, blood cultures showing no growth and urine culture showing no growth. On the monitor, the patient is on room air and is hemodynamically stable. Laboratory data was notable for WBC back to normal range. Chemistry panel showed a lactic acid of 1.6 and was otherwise unremarkable. The patient remains on a insulin drip due to euglycemic DKA which has now corrected with a gap of 7. The patient remains on antibiotic coverage also on Merrem, vancomycin and clindamycin. 11/21/2024: At the time of my evaluation, the patient is lying in bed. Staff nurse reports no acute events overnight. The patient has no new complaint. Vital signs today are hemodynamically stable and the patient remains on room air. Laboratory data today showed no new laboratory data for review. Abscess tissue gram stain showing Gram-positive cocci in clusters and blood cultures x2 are negative. Urine culture showing no growth. No new imaging for review. Currently, the patient remains on wound care and is on antibiotic therapy with p.o. Zyvox and IV Merrem. No other complaint. 11/22 patient is evaluated at bedside. Labs and vitals are reviewed and within normal limits. His blood and urine cultures remain negative, wound cultures were positive for polymicrobial. He continues on Merrem and Zyvox per ID. Patient has discontinued SGLT2 and advised to not resume outpatient. He verbalized understanding. Pending [facility] for continued IV antibiotics. REVIEW OF SYSTEMS: 12 point ROS reviewed with patient. Pertinent positives mentioned above. Otherwise negative. PHYSICAL EXAM: GENERAL: Alert, weak, awake oriented x 3 HEENT: EOMI, Sclera non icteric, moist mucosa NECK: Supple, no JVD, trachea midline LUNGS: Clear breath sounds bilaterally. No wheezes HEART: Regular rate and rhythm. Normal S1 and S2, without murmurs ABD: Abdomen soft, nontender. Bowel sounds present : Surgical site was benign with bloody dressing. EXT: No clubbing cyanosis or edema NEURO: Alert and oriented to person, follows commands Vital Signs (last 8hr) Date Time Temp Pulse Resp B/P (MAP) Pulse Ox O2 Delivery O2 Flow Rate FiO2 11/22/24 08:00 98.1 69 18 116/67 99 Room Air 11/22/24 03:45 98.1 70 18 118/47 98 Room Air LABS: Hematology Labs: Test 11/22/24 04:53 Range/Units White Blood Count 6.3 4.8-10.8 K/uL Red Blood Count 4.55 4.50-6.20 MIL/uL Hemoglobin 13.0 L 14.0-18.0 g/dL Hematocrit 39.5 L 42-54 % Mean Corpuscular Volume 86.8 79-99 fL Mean Corpuscular Hemoglobin 28.6 27.0-33.0 pg Mean Corpuscular Hemoglobin Concent 32.9 32.0-36.0 g/dL Red Cell Distribution Width 12.6 11.0-15.5 % Platelet Count 299 130-400 K/uL Mean Platelet Volume 11.1 H 7.5-10.5 fL Immature Granulocyte % (Auto) 0.3 0-1 % Neutrophils (%) (Auto) 48.4 40.0-77.0 % Lymphocytes (%) (Auto) 34.0 21.0-51.0 % Monocytes (%) (Auto) 8.5 3.0-13.0 % Eosinophils (%) (Auto) 8.2 H 0.0-8.0 % Basophils (%) (Auto) 0.6 0.0-5.0 % Neutrophils # (Auto) 3.1 1.8-7.7 K/uL Lymphocytes # (Auto) 2.2 1.0-4.8 K/uL Monocytes # (Auto) 0.5 0.1-1.0 K/uL Eosinophils # (Auto) 0.52 0.00-0.70 K/uL Basophils # (Auto) 0.04 0.00-0.20 K/uL Absolute Immature Granulocyte (auto 0.02 0-1 K/uL Nucleated Red Blood Cells 0.0 0.0-0.19 % Chemistry Labs: Test 11/22/24 05:30 11/22/24 04:53 Range/Units Whole Blood Glucose 158 H 70-110 MG/DL Sodium Level 138 136-145 mmol/L Potassium Level 3.3 L 3.5-5.1 mmol/L Chloride Level 103 101-111 mmol/L Carbon Dioxide Level 28 21-32 mmol/L Blood Urea Nitrogen 10 7-18 mg/dL Creatinine 0.6 0.5-1.3 mg/dL Glomerular Filtration Rate Calc 108 >90 mL/min Random Glucose 140 H 70-105 mg/dL Whole Blood Ketones Quantitative 1.0 H 0.0-0.6 mmol/L Total Calcium 8.7 8.5-10.1 mg/dL Total Bilirubin 0.4 0.2-1.0 mg/dL Aspartate Amino Transf (AST/SGOT) 15 10-37 U/L Alanine Aminotransferase (ALT/SGPT) 29 # 12-78 U/L Alkaline Phosphatase 161 H 50-136 U/L C-Reactive Protein, Quantitative 29.00 H 0.5-3.0 mg/L Total Protein 7.0 6.0-8.3 g/dL Albumin 2.8 L 3.5-5.0 g/dL DIAGNOSTICS / RADIOLOGY RESULTS: [ ] PLAN Continue IV antibiotics per ID Glucose management per endocrinology General surgery has cleared the patient for discharge Discontinue SGLT2 Pending [facility] for continued IV antibiotics NEURO: Minimize central acting medications as possible. Maintain fall precautions, adequate lighting during the day PULMONARY: Supplemental 02 as needed. Maintain aspiration precautions at all times CARDIOVASCULAR: Follow hemodynamics. Vital signs per facility protocol GI & NUTRITION: Continue with nutritional support. Continue stool softeners and laxatives as needed. KIDNEYS & ELECTROLYTES: Strict monitoring of intake, output and overall fluid balance. Avoid nephrotoxic medications to the extent possible. Medications to be dosed according to renal function. Monitor electrolytes and replace as needed ENDOCRINE: Maintain blood glucose between 100-180 at all times. Hypoglycemia protocol in place INFECTIOUS DISEASE: Trend temperature, WBC and procalcitonin level Follow cultures, deescalate antibiotics as soon as possible. Panculture if new onset fever ONCOLOGY/HEMATOLOGY/COAGULATION: Monitor for s/s of bleeding Monitor hemoglobin, coagulation studies as needed SKIN: Pressure ulcer prevention per facility protocol Specialty mattress ORTHO/REHAB: Continue PT/OT Prophylaxis: Continue GI and DVT prophylaxis Code Status: Full Resuscitation Disposition: TBD Other: MICHEL DAUGHERTY November 22, 2024 11:07
--- NOTE | 2024-11-22 15:48 | PN ---
INFECTIOUS DISEASE PROGRESS NOTE Date of Service: November 22, 2024 SUBJECTIVE: This 64 year old male patient is being seen today at bedside. He is awake, alert and oriented x3. No fever or chills. No nausea or vomiting. Patient remains on antibiotics tolerating well. He continues with wound care. Pending final culture results. At this time he is calm. Laying in bed. Denies chest pain or shortness of breath. We will continue to follow patient closely. PHYSICAL EXAM EYES: Anicteric. Pupils equal and reactive. HENT: No oral thrush seen, moist Oral mucosa. NECK: Supple, no JVD or thyromegaly. LUNGS: Good air entry. No rales, no rhonchi. CARDIOVASCULAR: S1, S2 regular. No murmur heard. ABDOMEN: Soft, non tender, bowel sounds pre sent, no organomegaly. CENTRAL NERVOUS SYSTEM: Awake, alert, oriented x 3. SKIN: No rashes, no swelling. LYMPHATICS: No peripheral lymphadenopathy. MUSCULOSKELETAL: No joint swelling, erythema or tenderness. EXTREMITIES: No cyanosis or clubbing. BACK: No deformity, no pressure ulcer. RECTUM: Perineal abscess, s/p I&D. open to air GENITOURINARY: No dysuria or hematuria. Vital Sign (Last 12 Hours) 11/22/24 11/22/24 11/22/24 03:45 08:00 12:00 Temp 98.1 98.1 98.4 Pulse 70 69 73 Resp 18 18 18 B/P (MAP) 118/47 116/67 124/71 Pulse Ox 98 99 98 O2 Delivery Room Air Room Air Room Air Intake & Output (last 24hrs) 11/21/24 11/21/24 11/22/24 15:00 23:00 07:00 Intake Total 2100 ml 800 ml Balance 2100 ml 800 ml LABS: Laboratory: Test 11/22/24 11:40 11/22/24 04:53 Range/Units Whole Blood Glucose 133 H 70-110 MG/DL White Blood Count 6.3 4.8-10.8 K/uL Red Blood Count 4.55 4.50-6.20 MIL/uL Hemoglobin 13.0 L 14.0-18.0 g/dL Hematocrit 39.5 L 42-54 % Mean Corpuscular Volume 86.8 79-99 fL Mean Corpuscular Hemoglobin 28.6 27.0-33.0 pg Mean Corpuscular Hemoglobin Concent 32.9 32.0-36.0 g/dL Red Cell Distribution Width 12.6 11.0-15.5 % Platelet Count 299 130-400 K/uL Mean Platelet Volume 11.1 H 7.5-10.5 fL Immature Granulocyte % (Auto) 0.3 0-1 % Neutrophils (%) (Auto) 48.4 40.0-77.0 % Lymphocytes (%) (Auto) 34.0 21.0-51.0 % Monocytes (%) (Auto) 8.5 3.0-13.0 % Eosinophils (%) (Auto) 8.2 H 0.0-8.0 % Basophils (%) (Auto) 0.6 0.0-5.0 % Neutrophils # (Auto) 3.1 1.8-7.7 K/uL Lymphocytes # (Auto) 2.2 1.0-4.8 K/uL Monocytes # (Auto) 0.5 0.1-1.0 K/uL Eosinophils # (Auto) 0.52 0.00-0.70 K/uL Basophils # (Auto) 0.04 0.00-0.20 K/uL Absolute Immature Granulocyte (auto 0.02 0-1 K/uL Nucleated Red Blood Cells 0.0 0.0-0.19 % Sodium Level 138 136-145 mmol/L Potassium Level 3.3 L 3.5-5.1 mmol/L Chloride Level 103 101-111 mmol/L Carbon Dioxide Level 28 21-32 mmol/L Blood Urea Nitrogen 10 7-18 mg/dL Creatinine 0.6 0.5-1.3 mg/dL Glomerular Filtration Rate Calc 108 >90 mL/min Random Glucose 140 H 70-105 mg/dL Whole Blood Ketones Quantitative 1.0 H 0.0-0.6 mmol/L Total Calcium 8.7 8.5-10.1 mg/dL Total Bilirubin 0.4 0.2-1.0 mg/dL Aspartate Amino Transf (AST/SGOT) 15 10-37 U/L Alanine Aminotransferase (ALT/SGPT) 29 # 12-78 U/L Alkaline Phosphatase 161 H 50-136 U/L C-Reactive Protein, Quantitative 29.00 H 0.5-3.0 mg/L Total Protein 7.0 6.0-8.3 g/dL Albumin 2.8 L 3.5-5.0 g/dL ASSESSMENT: Perineal abscess, s/p incision and drainage on 11/19/2024. 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 Sepsis. Leukocytosis. Diabetic ketoacidosis. Hypertension. PLAN: Continue zyvox Continue Meropenem. Continue pain management. Continue wound care. Continue antidiabetic. Continue antihypertensive. Will monitor electrolyte. We will follow up on the final culture results. Case management evaluation for referral to [facility] This case was reviewed and discussed with my supervising physician and the above assessment and plan was formulated and agreed upon. FABRICE DICKERSON November 22, 2024 15:48
--- NOTE | 2024-11-22 19:50 | PN ---
[facility] PROGRESS NOTE Date of Service: November 22, 2024 Time of Service: 19:40 SUBJECTIVE: 64-year-old male with underlying history of hypertension, hyperlipidemia, type 2 diabetes mellitus (maintained on outpatient insulin as well as metformin, [facility]), presented to the ER after he was sent by his doctor for further evaluation of left perianal painful swelling ongoing for the past three days. Patient reports having poor oral intake and significant pain which he rates as 7/10 in intensity. Patient reports having previous history of folliculitis involving the scrotum previously. Denies any previous history of abscess requiring incision and drainage. Patient denied any active chest pain, shortness of breath. Last bowel movement was yesterday. On presentation to the hospital, patient was noted to be afebrile with T-max of 98.1 F, heart rate of 97, blood pressure 140/95. [place] [address], hemoglobin of 15, platelet count of [id number].BMP remarkable for sodium of 134, potassium 4.2, creatinine 0.7, blood glucose of 187, lactic acid of 2.2, CRP of 78.20. 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 11.20.24: Patient underwent Incision and drainage of perirectal abscess By Dr Monk on 11.20.24.Pus is sent for culture and sensitivity. Patient is seen lying on his bed. No pain reported. Surgical site dressing with bloody discharge . Patient is on IV Merrem, IV vancomycin, IV clindamycin. Mean time, he was found to have increased ketone bodies, was treated with insulin drip , D5 with half NS for early euglycemic DKA. Downgraded to med surg floor. banquet manager and physical therapy on board. Pending discharge disposition . 11/21/2024: Patient is status post I and D of perirectal abscess, pod 2. Abscess culture growing Gram-positive cocci in clusters. Infectious Disease on board. Patient being treated with IV Merrem and oral Zyvox. Vancomycin and clindamycin is discontinued. His blood sugars are stable and ketones are down trending. Pending discharge disposition. 5.2.25: Patient is s/p Iand D day 3 . Surgeon cleared him for discharge .He is being treated with IV Merrem and PO Zyvox . He is pending placement to [facility] for continuation of IV antibiotics, wound care and rehab . REVIEW OF SYSTEMS CONSTITUTIONAL: Denies fevers, chills, or night sweats. No unintentional weight loss reported. NEUROLOGICAL: Denies headache, amaurosis fugax, motor weakness, sensory deficit, vertigo/spinning sensation, gait abnormalities, or tremors. ENT: No hearing loss, otalgia, otorrhea, rhinitis, rhinorrhea, hoarseness, or sore throat. CARDIOVASCULAR: Denies any exertional angina, dyspnea on exertion, orthopnea, paroxysmal nocturnal dyspnea, palpitations, life-threatening arrhythmias, balbir ication. PULMONARY: Denies any shortness of breath, cough, phlegm/sputum, hemoptysis, pleuritic chest pain. SLEEP: Denies morning headaches, daytime somnolence or napping. Denies difficulty falling asleep, staying asleep, waking from sleep. Denies knowledge of snoring. GASTROINTESTINAL: Redness, swelling and induration involving the left perianal region GENITOURINARY: Denies frequency, urgency, nocturia, hematuria or incontinence (Storage/Irritative symptoms.) Low urinary stream, straining to void, urinary intermittency or hesitancy, splitting of the voiding stream, terminal dribbling. ENDOCRINOLOGIC: Denies polyuria, polydipsia, polyphagia or heat/cold intolerances. HEMATOLOGIC: Denies thrombophilia/previous clots, or coagulopathy/bleeding diso rders. ONCOLOGIC: Denies personal history of malignancy. DERMATOLOGIC: Denies rashes or pruritus. PSYCHIATRIC: Denies any suicidal or homicidal ideation. Denies hallucinations. PHYSICAL EXAM GENERAL APPEARANCE: The patient is awake, alert, and oriented, in no acute cardiopulmonary distress. NEUROLOGICAL: Cranial nerves II-XII grossly intact. Motor is 5/5 in bilateral upper and lower extremities proximal to distal. No sensory deficits. HEENT: Face is symmetric. Pupils are equal and reactive. Extraocular movements are intact. NECK: Supple. No JVD. No thyromegaly. No submental, submandibular, pre- /postauricular, occipital or supraclavicular lymphadenopathy. CHEST: Normal chest expansion. No Telemetry. LUNGS: Absence of any rales, rhonchi or any wheezing. CARDIOVASCULAR: Regular. S1 and S2 normal. No appreciable rubs, murmurs or gallops. ABDOMEN/ : Erythema, induration, swelling noted of the left perianal region with surrounding erythema noted EXTREMITIES: Non-edematous and not cyanotic. No clubbing. Good capillary refill. Vital Signs (last 8hr) Date Time Temp Pulse Resp B/P (MAP) Pulse Ox O2 Delivery O2 Flow Rate FiO2 11/22/24 16:00 97.7 68 18 122/68 96 Room Air 11/22/24 12:00 98.4 73 18 124/71 98 Room Air LABS: Laboratory: Test 11/22/24 11:40 11/22/24 04:53 Range/Units Whole Blood Glucose 133 H 70-110 MG/DL White Blood Count 6.3 4.8-10.8 K/uL Red Blood Count 4.55 4.50-6.20 MIL/uL Hemoglobin 13.0 L 14.0-18.0 g/dL Hematocrit 39.5 L 42-54 % Mean Corpuscular Volume 86.8 79-99 fL Mean Corpuscular Hemoglobin 28.6 27.0-33.0 pg Mean Corpuscular Hemoglobin Concent 32.9 32.0-36.0 g/dL Red Cell Distribution Width 12.6 11.0-15.5 % Platelet Count 299 130-400 K/uL Mean Platelet Volume 11.1 H 7.5-10.5 fL Immature Granulocyte % (Auto) 0.3 0-1 % Neutrophils (%) (Auto) 48.4 40.0-77.0 % Lymphocytes (%) (Auto) 34.0 21.0-51.0 % Monocytes (%) (Auto) 8.5 3.0-13.0 % Eosinophils (%) (Auto) 8.2 H 0.0-8.0 % Basophils (%) (Auto) 0.6 0.0-5.0 % Neutrophils # (Auto) 3.1 1.8-7.7 K/uL Lymphocytes # (Auto) 2.2 1.0-4.8 K/uL Monocytes # (Auto) 0.5 0.1-1.0 K/uL Eosinophils # (Auto) 0.52 0.00-0.70 K/uL Basophils # (Auto) 0.04 0.00-0.20 K/uL Absolute Immature Granulocyte (auto 0.02 0-1 K/uL Nucleated Red Blood Cells 0.0 0.0-0.19 % Sodium Level 138 136-145 mmol/L Potassium Level 3.3 L 3.5-5.1 mmol/L Chloride Level 103 101-111 mmol/L Carbon Dioxide Level 28 21-32 mmol/L Blood Urea Nitrogen 10 7-18 mg/dL Creatinine 0.6 0.5-1.3 mg/dL Glomerular Filtration Rate Calc 108 >90 mL/min Random Glucose 140 H 70-105 mg/dL Whole Blood Ketones Quantitative 1.0 H 0.0-0.6 mmol/L Total Calcium 8.7 8.5-10.1 mg/dL Total Bilirubin 0.4 0.2-1.0 mg/dL Aspartate Amino Transf (AST/SGOT) 15 10-37 U/L Alanine Aminotransferase (ALT/SGPT) 29 # 12-78 U/L Alkaline Phosphatase 161 H 50-136 U/L C-Reactive Protein, Quantitative 29.00 H 0.5-3.0 mg/L Total Protein 7.0 6.0-8.3 g/dL Albumin 2.8 L 3.5-5.0 g/dL Current Medications Medications (Trade) Dose Ordered Sig/Shanda Route PRN Reason Start Time Stop Time Status Last Admin Dose Admin Acetaminophen (TYLenol 325MG TAB) 650 mg Q6H PRN PO MILD PAIN (1-3) 11/19/24 10:00 12/19/24 09:59 Acetaminophen/ Hydrocodone Bitart (NORco 5/325MG) 1 tab Q6H PRN PO MODERATE PAIN (4-6) 11/21/24 14:30 11/26/24 14:29 Atorvastatin Calcium (LIPItor 10MG) 10 mg HS PO 11/20/24 21:00 12/20/24 20:59 11/21/24 21:34 10 MG Clindamycin HCl/ Dextrose 50 ml @ 100 mls/hr Q8H IV 11/19/24 10:30 11/20/24 16:32 DC 11/20/24 09:02 100 MLS/HR Dextrose/Sodium Chloride 1,000 ml @ 0 mls/hr AD IV 11/19/24 11:00 11/20/24 09:36 DC 11/19/24 14:50 150 MLS/HR Famotidine (Pepcid 20mg Vial) 20 mg BID IV 11/19/24 21:00 12/19/24 20:59 11/22/24 08:13 20 MG Famotidine (Pepcid 20mg Tab) 20 mg Q12H PO 11/19/24 10:00 11/19/24 11:16 DC 11/19/24 10:46 20 MG Hydralazine HCl (APRESOLine 20MG INJ) 5 mg Q6H PRN IV ADMINISTER FOR SBP > 160 11/19/24 10:30 12/19/24 10:29 Insulin Glargine (LANtus 100 UNITS/ML 10 ML VIAL) 8 units HS SQ 11/20/24 21:00 12/20/24 20:59 11/21/24 21:36 8 UNITS Insulin Human Regular (humuLIN R 100 UNIT/ML 3ML) INSULIN SLIDING SCAL... ACHS SQ 11/19/24 11:30 11/19/24 10:52 DC Insulin Human Regular (humuLIN R 100 UNIT/ML 3ML) INSULIN SLIDING SCAL... ACHS SQ 11/20/24 11:30 12/20/24 11:29 11/21/24 21:36 2 UNIT Insulin Human Regular 100 unit/ Sodium Chloride 101 ml @ 0 mls/hr PROTOCOL IV 11/19/24 11:00 11/20/24 09:36 DC 11/19/24 14:50 0.5 MLS/HR Ketorolac Tromethamine (toRADol) 15 mg Q12H PRN IV MODERATE PAIN (4-6) 11/19/24 10:00 11/20/24 16:00 DC 11/20/24 12:42 15 MG Lactated Ringer's 1,000 ml @ 100 mls/hr Q10H IV 11/19/24 10:00 11/19/24 10:50 DC Linezolid (Zyvox) 600 mg Q12H PO 11/20/24 16:30 11/30/24 16:29 11/22/24 16:48 600 MG Magnesium Sulfate 50 ml @ 0 mls/hr PROTOCOL IV 11/19/24 11:00 12/19/24 10:59 Meropenem (Merrem 1gm) 1 gm Q8H IVPB 11/19/24 17:00 11/19/24 22:51 DC 11/19/24 19:49 1 GM Meropenem (Merrem 1gm) 1 gm Q8H IVPB 11/20/24 04:00 11/30/24 03:59 11/22/24 12:31 1 GM Morphine Sulfate (morPHINE 2MG SYG) 2 mg Q4H PRN IVP SEVERE PAIN (7-10) 11/19/24 10:00 11/21/24 14:24 DC 11/21/24 14:01 2 MG Ondansetron HCl (zoFRAN 4MG INJ) 4 mg Q6H PRN IVP NAUSEA/VOMITING 11/19/24 10:00 12/19/24 09:59 11/19/24 12:42 4 MG Pharmacy Profile Note (Pharmacy Communication) 1 each ONCE MISC 11/19/24 10:00 11/19/24 10:18 DC Potassium Chloride/Dextrose/ Sod Cl 1,000 ml @ 0 mls/hr AD IV 11/19/24 11:00 11/20/24 09:36 DC 11/20/24 09:01 150 MLS/HR Potassium Chloride 100 ml @ 0 mls/hr PROTOCOL PRN IV DKA POTASSIUM REPLACEMENT 11/19/24 11:00 12/19/24 10:59 Potassium Chloride (K-Dur/Klor-Con 20meq) 20 meq AD PRN PO POTASSIUM PROTOCOL 11/22/24 06:00 12/22/24 05:59 11/22/24 14:49 20 MEQ Potassium Chloride (KCl 10% Elixir 20meq/15ml) 20 meq AD PRN PO POTASSIUM PROTOCOL 11/22/24 06:00 12/22/24 05:59 Vancomycin HCl 250 ml @ 125 mls/hr Q12H IV 11/20/24 06:00 11/20/24 16:32 DC 11/20/24 05:54 125 MLS/HR Vancomycin HCl (Vancomycin Protocol) 1 each AD IV 11/19/24 09:00 11/20/24 16:32 DC DIAGNOSTICS / RADIOLOGY: [ ] ASSESSMENT: Perirectal cellulitis and abscess.,POA , status post incision and drainage on 11/19/2024 Sepsis Secondary to perirectal abscess with concerns for Morales gangrene as per CT, POA Leukocytosis, POA Lactic acidosis, POA Early euglycemic DKA with a normal anion gap POA -resolved History of Farxiga use as outpatient, POA Hidradenitis suppurativa ruled out Sebaceous cyst above the scrotum Drop in Hemoglobin Hypertension, POA Hyperlipidemia, POA Uncontrolled type 2 diabetes mellitus, POA PLAN: Patient is admitted med surg floor Advance directive: full code Sepsis Secondary perirectal abscess , POA Perirectal cellulitis and abscess.,POA , status post incision and drainage on 11/19/2024 Morales gangrene ruled out-no excisional debridement done. Continue IV Merrem, ZYVOX Infectious Disease, surgery, urology on board Wound care Case management on board for disposition-pending placement to [facility] as per CM Continue physical therapy Early euglycemic DKA with a normal anion gap, POA -resolved Uncontrolled type 2 diabetes mellitus, POA History of Farxiga use as outpatient, POA Initial whole blood ketone bodies 2.1 Patient was treated with IV insulin drip for 1 day Farxiga discontinued ketone bodies down trending Consistent carbohydrate diet Endocrinology on board ATTESTATION BY PHYSICIAN I have seen and examined the patient. I reviewed the documentation, medical decision making, and treatment plan as noted by the resident provider above. I agree with the findings and plan of care. BOUBACAR SPEARS MD, MD November 22, 2024 19:50
--- NOTE | 2024-11-22 22:08 | PN ---
endocrinology progress note Date of Service: 11/22/2024 subjective: glucose are stable and controlled. 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 Patient was also noted to have bilateral hydroceles involving with right scrotal wall thickening. he was treated with insulin drip for early mild euglycemic DKA and glucose less than 250 mg/dl. off insulin drip. ketones was elevated but bicarb was normal. hba1c 8.7% REVIEW OF SYSTEMS CONSTITUTIONAL: Denies fevers, chills, or night sweats. No unintentional weight loss reported. NEUROLOGICAL: Denies headache, amaurosis fugax, motor weakness, sensory deficit, vertigo/spinning sensation, gait abnormalities, or tremors. ENT: No hearing loss, otalgia, otorrhea, rhinitis, rhinorrhea, hoarseness, or sore throat. CARDIOVASCULAR: Denies any exertional angina, dyspnea on exertion, orthopnea, paroxysmal nocturnal dyspnea, palpitations, life-threatening arrhythmias, claudication. PULMONARY: Denies any shortness of breath, cough, phlegm/sputum, hemoptysis, pleuritic chest pain. SLEEP: Denies morning headaches, daytime somnolence or napping. Denies difficulty falling asleep, staying asleep, waking from sleep. Denies knowledge of snoring. GENITOURINARY: Denies frequency, urgency, nocturia, hematuria or incontinence (Storage/Irritative symptoms.) Low urinary stream, straining to void, urinary intermittency or hesitancy, splitting of the voiding stream, terminal dribbling. ENDOCRINOLOGIC: Denies polyuria, polydipsia, polyphagia or heat/cold intolerances. HEMATOLOGIC: Denies thrombophilia/previous clots, or coagulopathy/bleeding disorders. ONCOLOGIC: Denies personal history of malignancy. DERMATOLOGIC: Denies rashes or pruritus. PSYCHIATRIC: Denies any suicidal or homicidal ideation. Denies hallucinations. PAST MEDICAL HISTORY: Hypertension, hyperlipidemia, type 2 diabetes mellitus maintained on outpatient insulin, metformin, Farxiga PAST SURGICAL HISTORY: Patient has a history of operative fixation of the right femur after he sustained a fall from ladder [facility] PAST SOCIAL HISTORY: Patient denies active smoking or alcohol consumption FAMILY HISTORY: Denies pertinent family history Allergies: No known drug allergies Medications: Patient is on outpatient lisinopril 5 mg daily, Metformin 850 mg daily, atorvastatin 10 mg daily, Farxiga 5 mg daily, Humulin/Novolin NPH 16 units twice daily Coded Allergies: No Known Drug Allergies (Unverified Allergy, Unknown, 11/19/24) DIAGNOSTICS / RADIOLOGY: SERVICE 0839 REASON: testicular abscess rule our forneirs ORDERING PHYSICIAN: PARAMJIT HOOK MD PROCEDURE: ABD PEL W - CT ABDOMEN/PELVIS W/CONTRAST CT ABDOMEN/PELVIS W/CONTRAST HISTORY: Testicular abscess COMPARISON: None TECHNIQUE: Multiple sequential axial images of the abdomen and pelvis were obtained from the dome of the diaphragm through symphysis pubis. Patient was given 75 cc of Omnipaque through intravenous route. Oral contrast was not given. FINDINGS: No pleural effusion is seen bilaterally. There is no evidence of parenchymal disease or pulmonary nodule of the visualized lower lungs. Degenerative changes of the thoracolumbar spine are present. The heart is not enlarged. Liver measures 16 cm. Postcholecystectomy changes are seen. The liver, spleen, adrenal glands and pancreas are unremarkable. There is no evidence of hydronephrosis bilaterally. No evidence of renal stone is seen. Fecal material is seen in the colon. There are normal size retroperitoneal and mesenteric lymph nodes. No ascites is seen. Mild atherosclerotic changes are seen. No CT evidence of acute appendicitis is seen. There is fluid-filled structure measuring 3.3 x 2.1 cm near the left perianal region suggestive of abscess. 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 There may be bilateral hydroceles with left more than right with scrotal wall thickening. Pelvic sidewalls are symmetric bilaterally. Bladder is well distended without wall thickening. IMPRESSION: 1. There is fluid-filled structure measuring 3.3 x 2.1 cm near the left perianal region suggestive of abscess. 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 There may be bilateral hydroceles with left more than right with scrotal wall thickening. CT was performed with one or more following dose reduction techniques: automated exposure control, adjustment of the mA and kv according to patient's size, or use of a iterative reconstruction technique. DICTATED BY: LAKEISHA BUCIO MD DATE: 11/19/24909 ELECTRONICALLY SIGNED BY: LAKEISHA BUCIO MD DATE: 11/19/24914 ASSESSMENT: possible euglycemic DKA, POA resolved he was treated with insulin drip for early mild euglycemic DKA and glucose less than 250 mg/dl. off insulin drip. ketones was elevated but bicarb was normal. hba1c 8.7% off insulin drip. glucose are controlled. 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 patient can resume insulin and metformin at discharge. he can follow with me in clinic in 1 week. Vitals/Labs Vital Signs Date Time Temp Pulse Resp B/P (MAP) Pulse Ox O2 Delivery O2 Flow Rate FiO2 11/22/24 20:25 96 Room Air* 0 21 11/22/24 20:18 98.4 67 18 124/79 Laboratory Tests 11/22/24 04:53 Medications Current Medications Vancomycin HCl 1 each AD IV; Start 11/19/24 at 09:00; Stop 11/20/24 at 16:32; Status DC Vancomycin HCl 1 gm ONCE ONCE IV; Start 11/19/24 at 09:00; Stop 11/19/24 at 09:32; Status DC Piperacillin Sod/ Tazobactam Sod 3.375 gm ONCE ONCE IV Last administered on 11/19/24at 09:32; Start 11/19/24 at 09:00; Stop 11/19/24 at 09:26; Status DC Iohexol 75 ml STK-MED ONCE IV; Start 11/19/24 at 08:45; Stop 11/19/24 at 08:45; Status DC Vancomycin HCl 250 ml @ 125 mls/hr ONCE ONCE IV Last administered on 11/19/24at 14:51; Start 11/19/24 at 14:00; Stop 11/19/24 at 15:59; Status DC Vancomycin HCl 250 ml @ 125 mls/hr Q12H IV Last administered on 11/20/24at 05:54; Start 11/20/24 at 06:00; Stop 11/20/24 at 16:32; Status DC Lactated Ringer's 1,000 ml @ 100 mls/hr Q10H IV; Start 11/19/24 at 10:00; Stop 11/19/24 at 10:50; Status DC Insulin Human Regular INSULIN SLIDING SCAL... ACHS SQ; Start 11/19/24 at 11:30; Stop 11/19/24 at 10:52; Status DC Pharmacy Profile Note 1 each ONCE MISC; Start 11/19/24 at 10:00; Stop 11/19/24 at 10:18; Status DC Famotidine 20 mg Q12H PO Last administered on 11/19/24at 10:46; Start 11/19/24 at 10:00; Stop 11/19/24 at 11:16; Status DC Acetaminophen 650 mg Q6H PRN PO; Start 11/19/24 at 10:00; Stop 12/19/24 at 09:59 Ondansetron HCl 4 mg Q6H PRN IVP Last administered on 11/19/24at 12:42; Start 11/19/24 at 10:00; Stop 12/19/24 at 09:59 Ketorolac Tromethamine 15 mg Q12H PRN IV Last administered on 11/20/24at 12:42; Start 11/19/24 at 10:00; Stop 11/20/24 at 16:00; Status DC Morphine Sulfate 2 mg Q4H PRN IVP Last administered on 11/21/24at 14:01; Start 11/19/24 at 10:00; Stop 11/21/24 at 14:24; Status DC Clindamycin HCl/ Dextrose 50 ml @ 100 mls/hr Q8H IV Last administered on 11/20/24at 09:02; Start 11/19/24 at 10:30; Stop 11/20/24 at 16:32; Status DC Hydralazine HCl 5 mg Q6H PRN IV; Start 11/19/24 at 10:30; Stop 12/19/24 at 10:29 Meropenem 1 gm Q8H IVPB Last administered on 11/19/24at 19:49; Start 11/19/24 at 17:00; Stop 11/19/24 at 22:51; Status DC Sodium Chloride 2,124 ml @ 708 mls/hr ONCE ONCE IV Last administered on 11/19/24at 11:03; Start 11/19/24 at 11:00; Stop 11/19/24 at 13:59; Status DC Potassium Chloride/Dextrose/ Sod Cl 1,000 ml @ 0 mls/hr AD IV Last administered on 11/20/24at 09:01; Start 11/19/24 at 11:00; Stop 11/20/24 at 09:36; Status DC Potassium Chloride 100 ml @ 0 mls/hr PROTOCOL PRN IV; Start 11/19/24 at 11:00; Stop 12/19/24 at 10:59 Magnesium Sulfate 50 ml @ 0 mls/hr PROTOCOL IV; Start 11/19/24 at 11:00; Stop 12/19/24 at 10:59 Insulin Human Regular 100 unit/ Sodium Chloride 101 ml @ 0 mls/hr PROTOCOL IV Last administered on 11/19/24at 14:50; Start 11/19/24 at 11:00; Stop 11/20/24 at 09:36; Status DC Dextrose/Sodium Chloride 1,000 ml @ 0 mls/hr AD IV Last administered on 11/19/24at 14:50; Start 11/19/24 at 11:00; Stop 11/20/24 at 09:36; Status DC Famotidine 20 mg BID IV Last administered on 11/22/24at 20:28; Start 11/19/24 at 21:00; Stop 12/19/24 at 20:59 Midazolam HCl 2 mg STK-MED ONCE .ROUTE; Start 11/19/24 at 15:32; Stop 11/19/24 at 15:37; Status DC Propofol 200 mg STK-MED ONCE IV; Start 11/19/24 at 15:32; Stop 11/19/24 at 15:37; Status DC Fentanyl Citrate 100 mcg STK-MED ONCE .ROUTE; Start 11/19/24 at 15:33; Stop 11/19/24 at 15:37; Status DC Lidocaine HCl 20 ml STK-MED ONCE .ROUTE; Start 11/19/24 at 15:37; Stop 11/19/24 at 15:38; Status DC Cefazolin Sodium 1 gm STK-MED ONCE .ROUTE; Start 11/19/24 at 15:37; Stop 11/19/24 at 15:38; Status DC Bupivacaine HCl 2.5 mg STK-MED ONCE IJ; Start 11/19/24 at 15:37; Stop 11/19/24 at 15:38; Status DC Succinylcholine Chloride 200 mg STK-MED ONCE .ROUTE; Start 11/19/24 at 15:42; Stop 11/19/24 at 15:42; Status DC Rocuronium [place] 50 mg STK-MED ONCE .ROUTE; Start 11/19/24 at 15:42; Stop 11/19/24 at 15:42; Status DC Ketamine HCl 50 mg STK-MED ONCE .ROUTE; Start 11/19/24 at 15:49; Stop 11/19/24 at 15:50; Status DC Lidocaine HCl 20 ml STK-MED ONCE INJ Last administered on 11/19/24at 15:56; Start 11/19/24 at 15:56; Stop 11/19/24 at 16:46; Status DC Bupivacaine HCl 50 mg STK-MED ONCE IJ Last administered on 11/19/24at 15:56; Start 11/19/24 at 15:56; Stop 11/19/24 at 16:46; Status DC Cefazolin Sodium 1 gm STK-MED ONCE IRRIG Last administered on 11/19/24at 15:56; Start 11/19/24 at 15:56; Stop 11/19/24 at 16:46; Status DC Meropenem 1 gm Q8H IVPB Last administered on 11/22/24at 20:29; Start 11/20/24 at 04:00; Stop 11/30/24 at 03:59 Insulin Glargine 8 units HS SQ Last administered on 11/22/24at 21:05; Start 11/20/24 at 21:00; Stop 12/20/24 at 20:59 Insulin Human Regular INSULIN SLIDING SCAL... ACHS SQ Last administered on 11/21/24at 21:36; Start 11/20/24 at 11:30; Stop 12/20/24 at 11:29 Atorvastatin Calcium 10 mg HS PO Last administered on 11/22/24at 20:28; Start 11/20/24 at 21:00; Stop 12/20/24 at 20:59 Linezolid 600 mg Q12H PO Last administered on 11/22/24at 16:48; Start 11/20/24 at 16:30; Stop 11/30/24 at 16:29 Hydromorphone HCl 0.5 mg ONCE ONCE IVP Last administered on 11/20/24at 23:10; Start 11/20/24 at 22:00; Stop 11/20/24 at 22:01; Status DC Acetaminophen/ Hydrocodone Bitart 1 tab Q6H PRN PO; Start 11/21/24 at 14:30; Stop 11/26/24 at 14:29 Potassium Chloride 20 meq AD PRN PO; Start 11/22/24 at 06:00; Stop 12/22/24 at 05:59 Potassium Chloride 20 meq AD PRN PO Last administered on 11/22/24at 14:49; Start 11/22/24 at 06:00; Stop 12/22/24 at 05:59 LAUREN MOMIN MD November 22, 2024 22:08
[2024-11-23 04:00] VITALS: BP 118/64; PULSE 64; RESP 18; TEMP 98
[2024-11-23 04:10] LABS: BASOPHILS # (AUTO) 0.05 K/uL (0.00-0.20); BASOPHILS % (AUTO) 0.7 % (0.0-5.0); EOSINOPHILS # (AUTO) 0.72 K/uL (0.00-0.70); EOSINOPHILS % (AUTO) 9.7 % (0.0-8.0); HEMATOCRIT 40.5 % (42-54); IMMATURE GRANULOCYTE ABSOLUTE 0.02 K/uL (0-1); LYMPHOCYTES # (AUTO) 2.5 K/uL (1.0-4.8); MEAN CORPUSCULAR HEMOGLOBIN 28.7 pg (27.0-33.0); MEAN CORPUSCULAR HGB CONC 33.3 g/dL (32.0-36.0); MONOCYTES # (AUTO) 0.7 K/uL (0.1-1.0); MONOCYTES % (AUTO) 9.5 % (3.0-13.0); NEUTROPHILS # (AUTO) 3.4 K/uL (1.8-7.7); NEUTROPHILS % (AUTO) 45.8 % (40.0-77.0); PLATELET COUNT (AUTO) 337 K/uL (130-400); RED BLOOD CELL COUNT(AUTO) 4.71 MIL/uL (4.50-6.20); RED CELL DISTRIBUTION WIDTH 12.6 % (11.0-15.5); WHITE BLOOD COUNT (AUTO) 7.5 K/uL (4.8-10.8)
[2024-11-23 04:39] LABS: CREATININE 0.7 mg/dL (0.5-1.3); POTASSIUM 3.9 mmol/L (3.5-5.1)
[2024-11-23 08:00] VITALS: BP 130/66; PULSE 68; RESP 18; TEMP 98.2; O2SAT 100
--- NOTE | 2024-11-23 09:00 | NUR ---
PT REFUSED WOUND CARE, STATED HE DID NOT WANT ANY PACKING. AT BEDSIDE.
[2024-11-23 12:00] VITALS: BP 125/68; PULSE 72; RESP 20; TEMP 98.5
--- NOTE | 2024-11-23 12:16 | PN ---
INFECTIOUS DISEASE PROGRESS NOTE Date of Service: November 23, 2024 SUBJECTIVE: This is a 64 year old male patient who is being seen in room 418. Patient is afebrile this morning with a temperature of 98.2 and the WBC remains within normal level of 7.5. The final perirectal abscess wound culture results came back positive for Enterococcus faecalis. We will discontinue Meropenem and linezolid and start patient on ampicillin 2 g IV every 6 hours. No episodes of emesis reported. Per report patient has been referred to [facility] and pending insurance approval. PHYSICAL EXAM EYES: Anicteric. Pupils equal and reactive. HENT: No oral thrush seen, moist Oral mucosa. NECK: Supple, no JVD or thyromegaly. LUNGS: Good air entry. No rales, no rhonchi. CARDIOVASCULAR: S1, S2 regular. No murmur heard. ABDOMEN: Soft, non tender, bowel sounds pre sent, no organomegaly. CENTRAL NERVOUS SYSTEM: Awake, alert, oriented x 3. SKIN: No rashes, no swelling. LYMPHATICS: No peripheral lymphadenopathy. MUSCULOSKELETAL: No joint swelling, erythema or tenderness. EXTREMITIES: No cyanosis or clubbing. BACK: No deformity, no pressure ulcer. RECTUM: Perineal abscess, s/p I&D. open to air GENITOURINARY: No dysuria or hematuria. Vital Sign (Last 12 Hours) 11/23/24 11/23/24 04:00 08:00 Temp 98.1 98.2 Pulse 64 68 Resp 18 18 B/P (MAP) 118/64 130/66 Pulse Ox 97 100 O2 Delivery Room Air Room Air FiO2 21 Intake & Output (last 24hrs) 11/22/24 11/22/24 11/23/24 14:59 22:59 06:59 Intake Total 100.0 ml Balance 100.0 ml LABS: Laboratory: Test 11/23/24 11:13 11/23/24 03:49 11/22/24 04:53 Range/Units Whole Blood Glucose 138 H 70-110 MG/DL White Blood Count 7.5 4.8-10.8 K/uL Red Blood Count 4.71 4.50-6.20 MIL/uL Hemoglobin 13.5 L 14.0-18.0 g/dL Hematocrit 40.5 L 42-54 % Mean Corpuscular Volume 86.0 79-99 fL Mean Corpuscular Hemoglobin 28.7 27.0-33.0 pg Mean Corpuscular Hemoglobin Concent 33.3 32.0-36.0 g/dL Red Cell Distribution Width 12.6 11.0-15.5 % Platelet Count 337 130-400 K/uL Mean Platelet Volume 11.0 H 7.5-10.5 fL Immature Granulocyte % (Auto) 0.3 0-1 % Neutrophils (%) (Auto) 45.8 40.0-77.0 % Lymphocytes (%) (Auto) 34.0 21.0-51.0 % Monocytes (%) (Auto) 9.5 3.0-13.0 % Eosinophils (%) (Auto) 9.7 H 0.0-8.0 % Basophils (%) (Auto) 0.7 0.0-5.0 % Neutrophils # (Auto) 3.4 1.8-7.7 K/uL Lymphocytes # (Auto) 2.5 1.0-4.8 K/uL Monocytes # (Auto) 0.7 0.1-1.0 K/uL Eosinophils # (Auto) 0.72 H 0.00-0.70 K/uL Basophils # (Auto) 0.05 0.00-0.20 K/uL Absolute Immature Granulocyte (auto 0.02 0-1 K/uL Nucleated Red Blood Cells 0.0 0.0-0.19 % Sodium Level 138 136-145 mmol/L Potassium Level 3.9 3.5-5.1 mmol/L Chloride Level 104 101-111 mmol/L Carbon Dioxide Level 29 21-32 mmol/L Blood Urea Nitrogen 10 7-18 mg/dL Creatinine 0.7 0.5-1.3 mg/dL Glomerular Filtration Rate Calc 103 >90 mL/min Random Glucose 117 H 70-105 mg/dL Total Calcium 9.0 8.5-10.1 mg/dL C-Reactive Protein, Quantitative 16.50 H 0.5-3.0 mg/L Whole Blood Ketones Quantitative 1.0 H 0.0-0.6 mmol/L Total Bilirubin 0.4 0.2-1.0 mg/dL Aspartate Amino Transf (AST/SGOT) 15 10-37 U/L Alanine Aminotransferase (ALT/SGPT) 29 # 12-78 U/L Alkaline Phosphatase 161 H 50-136 U/L Total Protein 7.0 6.0-8.3 g/dL Albumin 2.8 L 3.5-5.0 g/dL ASSESSMENT: Perineal abscess, s/p incision and drainage on 11/19/2024. 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 Sepsis, resolving. Leukocytosis, resolved. Diabetic ketoacidosis. PLAN: Discontinue Meropenem. Discontinue linezolid. Start ampicillin 2 g IV every 6 hours. Continue pain management. Continue wound care. Continue antidiabetic. Will monitor electrolyte. Case management working on placement. This case was reviewed and discussed with my supervising physician and the above assessment and plan was formulated and agreed upon. ATTESTATION BY PHYSICIAN I have seen and examined the patient. I reviewed the documentation, medical decision making, and treatment plan as noted by the mid-level provider above. I agree with the findings and plan of care. MARIAH PARRA MD, [facility] November 23, 2024 12:16
[2024-11-23] MEDS ORDERED: AMPICILLIN 2GM+NS 100ML IV SCH (13:00)
--- NOTE | 2024-11-23 14:00 | NUR ---
AMA: PT LEFT AMA, AT BEDSIDE. PT WAS EDUCATED ON RISKS OF LEAVING AMA AND STILL CHOSE TO DO SO. IV REMOVED TIP INTACT. DR GUILLEN MADE AWARE.
--- NOTE | 2024-11-23 15:18 | DS ---
Discharge Summary Hospital Course Summary: 64-year-old male with underlying history of hypertension, hyperlipidemia, type 2 diabetes mellitus (maintained on outpatient insulin as well as metformin, Farxiga), presented to the ER after he was sent by his doctor for further evaluation of left perianal painful swelling ongoing for the past three days. Patient reports having poor oral intake and significant pain which he rates as 7/10 in intensity. Patient reports having previous history of folliculitis involving the scrotum previously. 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 Patient underwent Incision and drainage of perirectal abscess By Dr Monk on 11.20.24.Pus is sent for culture and sensitivity He was evaluated by Infectious Disease and surgery during this admission. He was on broad-spectrum IV antibiotics and the plan was to discharge him to [facility]. However patient left AMA Back Grinder(s): ID/Surgery Assessment/Plan: ASSESSMENT: Perirectal cellulitis and abscess.,POA , status post incision and drainage on 11/19/2024 Sepsis Secondary to perirectal abscess with concerns for Morales gangrene as per CT, POA Leukocytosis, POA Lactic acidosis, POA Early euglycemic DKA with a normal anion gap POA -resolved History of Farxiga use as outpatient, POA Hidradenitis suppurativa ruled out Sebaceous cyst above the scrotum Drop in Hemoglobin Hypertension, POA Hyperlipidemia, POA Uncontrolled type 2 diabetes mellitus, POA PLAN: Left AMA Home Medications: Reported Medications Atorvastatin Calcium (LIPITOR) 10 Mg Tab, 10 MG PO HS, TAB 11/19/24 Metformin HCl (Metformin HCl) 850 Mg Tablet, 850 MG PO DAILY, TAB 11/19/24 Lisinopril (Lisinopril) 5 Mg Tablet, 5 MG PO DAILY, TAB 11/19/24 Discontinued Reported Medications Dapagliflozin Propanediol (Farxiga) 5 Mg Tablet, 5 MG PO DAILY, TAB 11/19/24 Time spent arranging discharge: 31-60 minutes CLAUDIA DEE MD November 23, 2024 15:18
--- NOTE | 2024-11-23 18:08 | PN ---
[facility] PROGRESS NOTE Date Patient Seen: November 23, 2024 Time of Visit: 18:05 Supervising Physician: [Dr. Ji] Primary Care Physician: MORALES MARTE Outpatient Specialists: [ ] Inpatient Consults: [ ] PROBLEM LIST: SEPSIS DUE TO PERINEAL ABSCESS, POA, resolved ADRIANO GANGRENE, POA s/p I and D of perirectal abscess by Dr. Faith on 11/19 2024 LEFT PERINEAL ABSCESS DIABETES TYPE 2 UNCONTROLLED, POA ACUTE COMPLICATED CYSTITIS, POA, resolved 5LEFT PERINEAL CELLULITIS, POA INTERVAL HISTORY: 11/20/2024: At the time of my evaluation, the patient was lying in bed. He was complaining regarding ringing in the ears that is new. The patient underwent a I and D of perirectal abscess by Dr. Faith on 11/19 2024. Surgical site was benign with bloody dressing. Surgical sampling was sent for culture and Gram stain is showing Gram-positive cocci in clusters, blood cultures showing no growth and urine culture showing no growth. On the monitor, the patient is on room air and is hemodynamically stable. Laboratory data was notable for WBC back to normal range. Chemistry panel showed a lactic acid of 1.6 and was otherwise unremarkable. The patient remains on a insulin drip due to euglycemic DKA which has now corrected with a gap of 7. The patient remains on antibiotic coverage also on Merrem, vancomycin and clindamycin. 11/21/2024: At the time of my evaluation, the patient is lying in bed. Staff nurse reports no acute events overnight. The patient has no new complaint. Vital signs today are hemodynamically stable and the patient remains on room air. Laboratory data today showed no new laboratory data for review. Abscess tissue gram stain showing Gram-positive cocci in clusters and blood cultures x2 are negative. Urine culture showing no growth. No new imaging for review. Currently, the patient remains on wound care and is on antibiotic therapy with p.o. Zyvox and IV Merrem. No other complaint. 11/22 patient is evaluated at bedside. Labs and vitals are reviewed and within normal limits. His blood and urine cultures remain negative, wound cultures were positive for polymicrobial. He continues on Merrem and Zyvox per ID. Patient has discontinued SGLT2 and advised to not resume outpatient. He verbalized understanding. Pending LTAC for continued IV antibiotics. 11/23 patient is evaluated at bedside. Vitals are reviewed and normal. Labs including CBC and BMP are within normal limits. Patient continues on IV antibiotics per ID. Pending discharge to [facility] for continued IV antibiotics. REVIEW OF SYSTEMS: 12 point ROS reviewed with patient. Pertinent positives mentioned above. Otherwise negative. PHYSICAL EXAM: GENERAL: Alert, weak, awake oriented x 3 HEENT: EOMI, Sclera non icteric, moist mucosa NECK: Supple, no JVD, trachea midline LUNGS: Clear breath sounds bilaterally. No wheezes HEART: Regular rate and rhythm. Normal S1 and S2, without murmurs ABD: Abdomen soft, nontender. Bowel sounds present : Surgical site was benign with bloody dressing. EXT: No clubbing cyanosis or edema NEURO: Alert and oriented to person, follows commands Vital Signs (last 8hr) Date Time Temp Pulse Resp B/P (MAP) Pulse Ox O2 Delivery O2 Flow Rate FiO2 11/23/24 12:00 98.4 72 20 125/68 99 Room Air LABS: Hematology Labs: Test 11/23/24 03:49 Range/Units White Blood Count 7.5 4.8-10.8 K/uL Red Blood Count 4.71 4.50-6.20 MIL/uL Hemoglobin 13.5 L 14.0-18.0 g/dL Hematocrit 40.5 L 42-54 % Mean Corpuscular Volume 86.0 79-99 fL Mean Corpuscular Hemoglobin 28.7 27.0-33.0 pg Mean Corpuscular Hemoglobin Concent 33.3 32.0-36.0 g/dL Red Cell Distribution Width 12.6 11.0-15.5 % Platelet Count 337 130-400 K/uL Mean Platelet Volume 11.0 H 7.5-10.5 fL Immature Granulocyte % (Auto) 0.3 0-1 % Neutrophils (%) (Auto) 45.8 40.0-77.0 % Lymphocytes (%) (Auto) 34.0 21.0-51.0 % Monocytes (%) (Auto) 9.5 3.0-13.0 % Eosinophils (%) (Auto) 9.7 H 0.0-8.0 % Basophils (%) (Auto) 0.7 0.0-5.0 % Neutrophils # (Auto) 3.4 1.8-7.7 K/uL Lymphocytes # (Auto) 2.5 1.0-4.8 K/uL Monocytes # (Auto) 0.7 0.1-1.0 K/uL Eosinophils # (Auto) 0.72 H 0.00-0.70 K/uL Basophils # (Auto) 0.05 0.00-0.20 K/uL Absolute Immature Granulocyte (auto 0.02 0-1 K/uL Nucleated Red Blood Cells 0.0 0.0-0.19 % Chemistry Labs: Test 11/23/24 11:13 11/23/24 03:49 11/22/24 04:53 Range/Units Whole Blood Glucose 138 H 70-110 MG/DL Sodium Level 138 136-145 mmol/L Potassium Level 3.9 3.5-5.1 mmol/L Chloride Level 104 101-111 mmol/L Carbon Dioxide Level 29 21-32 mmol/L Blood Urea Nitrogen 10 7-18 mg/dL Creatinine 0.7 0.5-1.3 mg/dL Glomerular Filtration Rate Calc 103 >90 mL/min Random Glucose 117 H 70-105 mg/dL Total Calcium 9.0 8.5-10.1 mg/dL C-Reactive Protein, Quantitative 16.50 H 0.5-3.0 mg/L Whole Blood Ketones Quantitative 1.0 H 0.0-0.6 mmol/L Total Bilirubin 0.4 0.2-1.0 mg/dL Aspartate Amino Transf (AST/SGOT) 15 10-37 U/L Alanine Aminotransferase (ALT/SGPT) 29 # 12-78 U/L Alkaline Phosphatase 161 H 50-136 U/L Total Protein 7.0 6.0-8.3 g/dL Albumin 2.8 L 3.5-5.0 g/dL DIAGNOSTICS / RADIOLOGY RESULTS: [ ] PLAN Continue IV antibiotics per ID Glucose management per endocrinology General surgery has cleared the patient for discharge Discontinue SGLT2 Pending [facility] for continued IV antibiotics NEURO: Minimize central acting medications as possible. Maintain fall precautions, adequate lighting during the day PULMONARY: Supplemental 02 as needed. Maintain aspiration precautions at all times CARDIOVASCULAR: Follow hemodynamics. Vital signs per facility protocol GI & NUTRITION: Continue with nutritional support. Continue stool softeners and laxatives as needed. KIDNEYS & ELECTROLYTES: Strict monitoring of intake, output and overall fluid balance. Avoid nephrotoxic medications to the extent possible. Medications to be dosed according to renal function. Monitor electrolytes and replace as needed ENDOCRINE: Maintain blood glucose between 100-180 at all times. Hypoglycemia protocol in place INFECTIOUS DISEASE: Trend temperature, WBC and procalcitonin level Follow cultures, deescalate antibiotics as soon as possible. Panculture if new onset fever ONCOLOGY/HEMATOLOGY/COAGULATION: Monitor for s/s of bleeding Monitor hemoglobin, coagulation studies as needed SKIN: Pressure ulcer prevention per facility protocol Specialty mattress ORTHO/REHAB: Continue PT/OT Prophylaxis: Continue GI and DVT prophylaxis Code Status: Full Resuscitation Disposition: TBD Other: MICHEL DAUGHERTY November 23, 2024 18:08
--- NOTE | 2024-11-23 21:37 | PN ---
endocrinology progress note Date of Service: 11/23/2024 subjective: glucose are stable and controlled. 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 Patient was also noted to have bilateral hydroceles involving with right scrotal wall thickening. he was treated with insulin drip for early mild euglycemic DKA and glucose less than 250 mg/dl. off insulin drip. ketones was elevated but bicarb was normal. hba1c 8.7% REVIEW OF SYSTEMS CONSTITUTIONAL: Denies fevers, chills, or night sweats. No unintentional weight loss reported. NEUROLOGICAL: Denies headache, amaurosis fugax, motor weakness, sensory deficit, vertigo/spinning sensation, gait abnormalities, or tremors. ENT: No hearing loss, otalgia, otorrhea, rhinitis, rhinorrhea, hoarseness, or sore throat. CARDIOVASCULAR: Denies any exertional angina, dyspnea on exertion, orthopnea, paroxysmal nocturnal dyspnea, palpitations, life-threatening arrhythmias, claudication. PULMONARY: Denies any shortness of breath, cough, phlegm/sputum, hemoptysis, pleuritic chest pain. SLEEP: Denies morning headaches, daytime somnolence or napping. Denies difficulty falling asleep, staying asleep, waking from sleep. Denies knowledge of snoring. GENITOURINARY: Denies frequency, urgency, nocturia, hematuria or incontinence (Storage/Irritative symptoms.) Low urinary stream, straining to void, urinary intermittency or hesitancy, splitting of the voiding stream, terminal dribbling. ENDOCRINOLOGIC: Denies polyuria, polydipsia, polyphagia or heat/cold intolerances. HEMATOLOGIC: Denies thrombophilia/previous clots, or coagulopathy/bleeding disorders. ONCOLOGIC: Denies personal history of malignancy. DERMATOLOGIC: Denies rashes or pruritus. PSYCHIATRIC: Denies any suicidal or homicidal ideation. Denies hallucinations. PAST MEDICAL HISTORY: Hypertension, hyperlipidemia, type 2 diabetes mellitus maintained on outpatient insulin, metformin, Farxiga PAST SURGICAL HISTORY: Patient has a history of operative fixation of the right femur after he sustained a fall from ladder [facility] PAST SOCIAL HISTORY: Patient denies active smoking or alcohol consumption FAMILY HISTORY: Denies pertinent family history Allergies: No known drug allergies Medications: Patient is on outpatient lisinopril 5 mg daily, Metformin 850 mg daily, atorvastatin 10 mg daily, Farxiga 5 mg daily, Humulin/Novolin NPH 16 units twice daily Coded Allergies: No Known Drug Allergies (Unverified Allergy, Unknown, 11/19/24) DIAGNOSTICS / RADIOLOGY: SERVICE 0839 REASON: testicular abscess rule our forneirs ORDERING PHYSICIAN: PARAMJIT HOOK MD PROCEDURE: ABD PEL W - CT ABDOMEN/PELVIS W/CONTRAST CT ABDOMEN/PELVIS W/CONTRAST HISTORY: Testicular abscess COMPARISON: None TECHNIQUE: Multiple sequential axial images of the abdomen and pelvis were obtained from the dome of the diaphragm through symphysis pubis. Patient was given 75 cc of Omnipaque through intravenous route. Oral contrast was not given. FINDINGS: No pleural effusion is seen bilaterally. There is no evidence of parenchymal disease or pulmonary nodule of the visualized lower lungs. Degenerative changes of the thoracolumbar spine are present. The heart is not enlarged. Liver measures 16 cm. Postcholecystectomy changes are seen. The liver, spleen, adrenal glands and pancreas are unremarkable. There is no evidence of hydronephrosis bilaterally. No evidence of renal stone is seen. Fecal material is seen in the colon. There are normal size retroperitoneal and mesenteric lymph nodes. No ascites is seen. Mild atherosclerotic changes are seen. No CT evidence of acute appendicitis is seen. There is fluid-filled structure measuring 3.3 x 2.1 cm near the left perianal region suggestive of abscess. 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 There may be bilateral hydroceles with left more than right with scrotal wall thickening. Pelvic sidewalls are symmetric bilaterally. Bladder is well distended without wall thickening. IMPRESSION: 1. There is fluid-filled structure measuring 3.3 x 2.1 cm near the left perianal region suggestive of abscess. 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 There may be bilateral hydroceles with left more than right with scrotal wall thickening. CT was performed with one or more following dose reduction techniques: automated exposure control, adjustment of the mA and kv according to patient's size, or use of a iterative reconstruction technique. DICTATED BY: LAKEISHA BUCIO MD DATE: 11/19/24909 ELECTRONICALLY SIGNED BY: LAKEISHA BUCIO MD DATE: 11/19/24914 ASSESSMENT: possible euglycemic DKA, POA resolved he was treated with insulin drip for early mild euglycemic DKA and glucose less than 250 mg/dl. off insulin drip. ketones was elevated but bicarb was normal. hba1c 8.7% off insulin drip. glucose are controlled. 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 patient can resume insulin and metformin at discharge. he can follow with me in clinic in 1 week. Vitals/Labs Vital Signs Date Time Temp Pulse Resp B/P (MAP) Pulse Ox O2 Delivery O2 Flow Rate FiO2 11/23/24 12:00 98.4 72 20 125/68 99 Room Air 11/23/24 08:00 0 21 Laboratory Tests 11/23/24 03:49 Medications Current Medications Vancomycin HCl 1 each AD IV; Start 11/19/24 at 09:00; Stop 11/20/24 at 16:32; Status DC Vancomycin HCl 1 gm ONCE ONCE IV; Start 11/19/24 at 09:00; Stop 11/19/24 at 09:32; Status DC Piperacillin Sod/ Tazobactam Sod 3.375 gm ONCE ONCE IV Last administered on 11/19/24at 09:32; Start 11/19/24 at 09:00; Stop 11/19/24 at 09:26; Status DC Iohexol 75 ml STK-MED ONCE IV; Start 11/19/24 at 08:45; Stop 11/19/24 at 08:45; Status DC Vancomycin HCl 250 ml @ 125 mls/hr ONCE ONCE IV Last administered on 11/19/24at 14:51; Start 11/19/24 at 14:00; Stop 11/19/24 at 15:59; Status DC Vancomycin HCl 250 ml @ 125 mls/hr Q12H IV Last administered on 11/20/24at 05:54; Start 11/20/24 at 06:00; Stop 11/20/24 at 16:32; Status DC Lactated Ringer's 1,000 ml @ 100 mls/hr Q10H IV; Start 11/19/24 at 10:00; Stop 11/19/24 at 10:50; Status DC Insulin Human Regular INSULIN SLIDING SCAL... ACHS SQ; Start 11/19/24 at 11:30; Stop 11/19/24 at 10:52; Status DC Pharmacy Profile Note 1 each ONCE MISC; Start 11/19/24 at 10:00; Stop 11/19/24 at 10:18; Status DC Famotidine 20 mg Q12H PO Last administered on 11/19/24at 10:46; Start 11/19/24 at 10:00; Stop 11/19/24 at 11:16; Status DC Acetaminophen 650 mg Q6H PRN PO; Start 11/19/24 at 10:00; Stop 11/23/24 at 15:09; Status DC Ondansetron HCl 4 mg Q6H PRN IVP Last administered on 11/19/24at 12:42; Start 11/19/24 at 10:00; Stop 11/23/24 at 15:09; Status DC Ketorolac Tromethamine 15 mg Q12H PRN IV Last administered on 11/20/24at 12:42; Start 11/19/24 at 10:00; Stop 11/20/24 at 16:00; Status DC Morphine Sulfate 2 mg Q4H PRN IVP Last administered on 11/21/24at 14:01; Start 11/19/24 at 10:00; Stop 11/21/24 at 14:24; Status DC Clindamycin HCl/ Dextrose 50 ml @ 100 mls/hr Q8H IV Last administered on 11/20/24at 09:02; Start 11/19/24 at 10:30; Stop 11/20/24 at 16:32; Status DC Hydralazine HCl 5 mg Q6H PRN IV; Start 11/19/24 at 10:30; Stop 11/23/24 at 15:09; Status DC Meropenem 1 gm Q8H IVPB Last administered on 11/19/24at 19:49; Start 11/19/24 at 17:00; Stop 11/19/24 at 22:51; Status DC Sodium Chloride 2,124 ml @ 708 mls/hr ONCE ONCE IV Last administered on 11/19/24at 11:03; Start 11/19/24 at 11:00; Stop 11/19/24 at 13:59; Status DC Potassium Chloride/Dextrose/ Sod Cl 1,000 ml @ 0 mls/hr AD IV Last administered on 11/20/24at 09:01; Start 11/19/24 at 11:00; Stop 11/20/24 at 09:36; Status DC Potassium Chloride 100 ml @ 0 mls/hr PROTOCOL PRN IV; Start 11/19/24 at 11:00; Stop 11/23/24 at 15:09; Status DC Magnesium Sulfate 50 ml @ 0 mls/hr PROTOCOL IV; Start 11/19/24 at 11:00; Stop 11/23/24 at 15:09; Status DC Insulin Human Regular 100 unit/ Sodium Chloride 101 ml @ 0 mls/hr PROTOCOL IV Last administered on 11/19/24at 14:50; Start 11/19/24 at 11:00; Stop 11/20/24 at 09:36; Status DC Dextrose/Sodium Chloride 1,000 ml @ 0 mls/hr AD IV Last administered on 11/19/24at 14:50; Start 11/19/24 at 11:00; Stop 11/20/24 at 09:36; Status DC Famotidine 20 mg BID IV Last administered on 11/23/24at 09:24; Start 11/19/24 at 21:00; Stop 11/23/24 at 15:09; Status DC Midazolam HCl 2 mg STK-MED ONCE .ROUTE; Start 11/19/24 at 15:32; Stop 11/19/24 at 15:37; Status DC Propofol 200 mg STK-MED ONCE IV; Start 11/19/24 at 15:32; Stop 11/19/24 at 15:37; Status DC Fentanyl Citrate 100 mcg STK-MED ONCE .ROUTE; Start 11/19/24 at 15:33; Stop 11/19/24 at 15:37; Status DC Lidocaine HCl 20 ml STK-MED ONCE .ROUTE; Start 11/19/24 at 15:37; Stop 11/19/24 at 15:38; Status DC Cefazolin Sodium 1 gm STK-MED ONCE .ROUTE; Start 11/19/24 at 15:37; Stop 11/19/24 at 15:38; Status DC Bupivacaine HCl 2.5 mg STK-MED ONCE IJ; Start 11/19/24 at 15:37; Stop 11/19/24 at 15:38; Status DC Succinylcholine Chloride 200 mg STK-MED ONCE .ROUTE; Start 11/19/24 at 15:42; Stop 11/19/24 at 15:42; Status DC Rocuronium [place] 50 mg STK-MED ONCE .ROUTE; Start 11/19/24 at 15:42; Stop 11/19/24 at 15:42; Status DC Ketamine HCl 50 mg STK-MED ONCE .ROUTE; Start 11/19/24 at 15:49; Stop 11/19/24 at 15:50; Status DC Lidocaine HCl 20 ml STK-MED ONCE INJ Last administered on 11/19/24at 15:56; Start 11/19/24 at 15:56; Stop 11/19/24 at 16:46; Status DC Bupivacaine HCl 50 mg STK-MED ONCE IJ Last administered on 11/19/24at 15:56; Start 11/19/24 at 15:56; Stop 11/19/24 at 16:46; Status DC Cefazolin Sodium 1 gm STK-MED ONCE IRRIG Last administered on 11/19/24at 15:56; Start 11/19/24 at 15:56; Stop 11/19/24 at 16:46; Status DC Meropenem 1 gm Q8H IVPB Last administered on 11/23/24at 03:56; Start 11/20/24 at 04:00; Stop 11/23/24 at 12:13; Status DC Insulin Glargine 8 units HS SQ Last administered on 11/22/24at 21:05; Start 11/20/24 at 21:00; Stop 11/23/24 at 15:09; Status DC Insulin Human Regular INSULIN SLIDING SCAL... ACHS SQ Last administered on 11/21/24at 21:36; Start 11/20/24 at 11:30; Stop 11/23/24 at 15:09; Status DC Atorvastatin Calcium 10 mg HS PO Last administered on 11/22/24at 20:28; Start 11/20/24 at 21:00; Stop 11/23/24 at 15:09; Status DC Linezolid 600 mg Q12H PO Last administered on 11/23/24at 03:56; Start 11/20/24 at 16:30; Stop 11/23/24 at 12:13; Status DC Hydromorphone HCl 0.5 mg ONCE ONCE IVP Last administered on 11/20/24at 23:10; Start 11/20/24 at 22:00; Stop 11/20/24 at 22:01; Status DC Acetaminophen/ Hydrocodone Bitart 1 tab Q6H PRN PO; Start 11/21/24 at 14:30; Stop 11/23/24 at 15:09; Status DC Potassium Chloride 20 meq AD PRN PO; Start 11/22/24 at 06:00; Stop 11/23/24 at 15:09; Status DC Potassium Chloride 20 meq AD PRN PO Last administered on 11/22/24at 14:49; Start 11/22/24 at 06:00; Stop 11/23/24 at 15:09; Status DC Ampicillin Sodium 2 gm Q6H IV; Start 11/23/24 at 13:00; Stop 11/23/24 at 15:09; Status DC LAUREN MOMIN MD November 23, 2024 21:37
== END 2024-11-23 14:00 | disposition left against medical advice (07) | DRG 853 ==
LOC: EDH 07:43 → EDHIP 09:52 → 2CH 17:50 → 4CH 11-20 14:35
PROVIDERS: ADMIT Internal Medicine; ATTEND Internal Medicine
PROC: 0D9P0ZZ Drainage of Rectum, Open Approach (ICD-10-PCS; principal; 2024-11-19 15:30)
DX: A41.9 Sepsis, unspecified organism (principal); E11.10 Type 2 diabetes mellitus with ketoacidosis without coma; N30.00 Acute cystitis without hematuria; L03.315 Cellulitis of perineum; L02.215 Cutaneous abscess of perineum; R71.0 Precipitous drop in hematocrit; K61.1 Rectal abscess; I10 Essential (primary) hypertension; E78.5 Hyperlipidemia, unspecified; B95.2 Enterococcus as the cause of diseases classified elsewhere; F17.210 Nicotine dependence, cigarettes, uncomplicated; Z53.29 Procedure and treatment not carried out because of patient's decision for other reasons; N43.3 Hydrocele, unspecified; L72.3 Sebaceous cyst; Z79.4 Long term (current) use of insulin; Z79.84 Long term (current) use of oral hypoglycemic drugs; Z83.3 Family history of diabetes mellitus; Z91.199 Patient's noncompliance with other medical treatment and regimen due to unspecified reason
CPT/HCPCS: 36415; 74177; 76870; 80048; 80053; 80076; 81001; 82010; 82550; 82948; 83036; 83605; 83615; 83735; 84145; 84484; 85025; 85610; 85651; 85730; 86140; 86850; 86900; 86901; 87040; 87070; 87076; 87086; 87186; 87205; 93005; A4450; G0378; J0330; J0690; J1171; J1815; J1885; J2185; J2250; J2270; J2405; J2543; J2704; J3010; J3480; J3490; J7030; J7120; Q9967; 3370; A4649; A4930; J0665; J3370